=== PATIENT | male | born 1990 | race Caucasian/White ===

== ENCOUNTER 2020-01-19 08:44 | Emergency (ER) | payer OTHER, SELFPAY ==
[2020-01-19] VITALS (18 sets, daily range): BP systolic 146–177; BP diastolic 89–101; PULSE 71–127; RESP 10–21; TEMP 36.3–37.1; O2SAT 97–100
[2020-01-19] MEDS: Ondansetron 4 MG/2 ML VIAL (09:14)
[2020-01-19] MEDS: Normal Saline 1,000 ML 1000 ML IV ×3 (09:14→10:48)
[2020-01-19] MEDS: Normal Saline Flush 10 ML SYR IVP (09:15)
[2020-01-19 09:22] LABS: Abs Immature Grans 0.07 10^3/uL (0.0-0.06); Absolute Basophil Count 0.03 10^3/uL (0.0-0.2); Absolute Eosinophil Count 0.03 10^3/uL (0.0-0.7); Absolute Lymphocyte Count 1.65 10^3/uL (1.2-3.4); Absolute Monocyte Count 1.04 10^3/uL (0.1-0.8); Basophils % 0.2; Eosinophils % 0.2; HCT 43.5 % (40.0-50.0); HGB 16.3 g/dL (13.5-17.5); Immature Grans % 0.4; Lymphocytes % 9.7; MCH 33.7 pg (27.0-33.0); MCHC 37.5 % (32.0-36.0); MCV 90.1 fL (80-95); MPV 9.2 fL (8.0-11.0); Monocytes % 6.1; Neutrophils % 83.4; Nucleated RBC 0 %; Platelet Count 418 10^3/uL (130-400); RBC 4.83 10^6/uL (4.36-5.78); RDW 15.6 % (11.8-14.1); RDW-SD 50.9 fL; WBC 17.04 10^3/uL (4.4-10.8)
[2020-01-19 09:25] LABS: Absolute Neutrophil Count 14.21 10^3/uL (1.2-6.7)
[2020-01-19 10:26] LABS: Bilirubin Small (Negative); Blood Negative (Negative); Clarity Clear (Clear); Glucose 500 mg/dL (Negative); Ketones >=160 mg/dL (Negative); Leukocyte Esterase Negative (Negative); Nitrite Negative (Negative); Specific Gravity 1.025 (1.005-1.025); Urobilinogen 0.2 EU/dL (Up TO 0.2); pH 5.5 (5-8)
[2020-01-19 10:28] LABS: ALT 61 U/L (16-63); AST 46 U/L (15-37); Albumin 4.9 g/dL (3.4-5.0); Alkaline Phosphatase 112 U/L (46-116); Anion Gap 21.1 mmol/L (3-11); BUN 28 mg/dL (7-18); Bilirubin, Total 4.7 mg/dL (0.2-1.0); CO2 20.9 mmol/L (21.0-32.0); CREATININE 1.23 mg/dL (0.70-1.30); Calcium 11.2 mg/dL (8.5-10.1); Chloride 93 mmol/L (98-107); Glucose 319 mg/dL (74-106); Sodium 135 mmol/L (136-145); Total Protein 9.4 g/dL (6.4-8.2)
[2020-01-19 10:36] LABS: Bacteria Negative HPF (Negative); Crystals Negative HPF (Negative); Epithelial Cells Rare HPF (Negative); Mucus Negative (Negative); RBC 0-2 HPF (0-2); WBC 0-2 HPF (0-5)
[2020-01-19 10:37] LABS: C & S Indicated? No; Casts Negative LPF (Negative)
[2020-01-19] MEDS: Ondansetron 4 MG/2 ML VIAL IVP (11:53)
[2020-01-19 11:58] LABS: Abs Immature Grans 0.05 10^3/uL (0.0-0.06); Absolute Lymphocyte Count 0.87 10^3/uL (1.2-3.4); Absolute Monocyte Count 0.55 10^3/uL (0.1-0.8); Absolute Neutrophil Count 11.62 10^3/uL (1.2-6.7); Basophils % 0.2; Immature Grans % 0.4; Lymphocytes % 6.6; MCH 33.4 pg (27.0-33.0); MCHC 35.8 % (32.0-36.0); MPV 8.9 fL (8.0-11.0); Monocytes % 4.2; Neutrophils % 88.6; Nucleated RBC 0 %; RBC 3.86 10^6/uL (4.36-5.78); RDW 15.6 % (11.8-14.1); WBC 13.11 10^3/uL (4.4-10.8)
[2020-01-19 12:00] LABS: Absolute Basophil Count 0.03 10^3/uL (0.0-0.2)
[2020-01-19 12:05] LABS: HGB 12.9 g/dL (13.5-17.5); MCV 93.3 fL (80-95); Platelet Count 274 10^3/uL (130-400)
[2020-01-19 12:12] LABS: ALT 42 U/L (16-63); AST 27 U/L (15-37); Albumin 3.4 g/dL (3.4-5.0); Alkaline Phosphatase 79 U/L (46-116); Anion Gap 8.9 mmol/L (3-11); BUN 24 mg/dL (7-18); Bilirubin, Total 2.8 mg/dL (0.2-1.0); CO2 24.1 mmol/L (21.0-32.0); Calcium 8.3 mg/dL (8.5-10.1); Chloride 107 mmol/L (98-107); Glucose 236 mg/dL (74-106); Potassium 4.1 mmol/L (3.5-5.1); Sodium 140 mmol/L (136-145); Total Protein 6.6 g/dL (6.4-8.2)
--- NOTE | 2020-01-19 12:19 | ED.GENADUL_ITS ---
Discharge Plan Disposition Patient Disposition: HOME Condition: Stable Discharge Details Chief Complaint: Nausea/Vomit/Diar Clinical Impression: Dehydration, Nausea & vomiting Primary Care Provider: Tony Connors ED Provider: Niranjan Grossman Home Meds and New Rx's Prescriptions: New ondansetron HCl [Zofran] 4 mg tablet 4 mg PO Q8H PRNQty: 10 RF: 0 Continued Lantus U-100 Insulin 100 unit/mL Solution 27 unit SUBCUT DAILY RF: 0 Lantus U-100 Insulin 100 unit/mL Solution 5 unit SUBCUT HS RF: 0 insulin aspart U-100 [Novolog U-100 Insulin aspart] 100 unit/mL Solution 1 sliding scale dose SUBCUT USEASDIRECTD RF: 0 Discharge Instructions Instructions: Acute Nausea and Vomiting (ED), Dehydration (ED) Additional Instructions: Zofran as directed. Plenty of fluids to avoid dehydration. Be sure to monitor your glucose levels carefully. As we discussed please monitor your symptoms closely and return to the ER for new or evolving symptoms. Otherwise I recommend reaching out your primary care provider today or tomorrow for prompt outpatient reevaluation. Medical Decision Making 30-year-old gentleman with history of type 1 diabetes presents with nausea, vomiting, concern for dehydration for nearly 1 week. He has no other concerns or complaints whatsoever. No recent illness. He appears slightly anxious and has mild tachycardia otherwise appears well. Differential diagnosis includes but not excluded to gastroenteritis, hyperglycemia, nausea and vomiting, dehydration, DKA, infectious process. Will obtain IV access, give IV Zofran, initiate normal saline therapy, initially written for 2 L. Patient observed in the ER for nearly 4 hours. Initial laboratory values revealed a white count of 17.04, anion gap 21.1, creatinine 1.23, glucose 319, urinalysis greater than 160 ketones. Patient reports that the initial Zofran helped greatly but that he did develop some additional nausea. He was given additional 4 mg IV Zofran and 1/3 L of IV fluid. I discussed the case with Dr. Frazier. Will recheck CBC and CMP after hydration and reassess. Repeat laboratory values reveal a white count of 13.11, anion gap of 8.9, creatinine 0.90 glucose 236. Patient does not appear to be in any obvious florid DKA. He is now eating and drinking without difficulty. Heart rate in the 80s. He denies any abdominal pain whatsoever. He subjectively reports feeling much improvement. Glucose in the 200s. We discussed the importance of monitoring his glucose levels very carefully and return to the ER for new or worsening symptoms. He was offered longer ER observation but declines. Will be provided with a prescription for Zofran. He was also encouraged to reach out to his primary care provider later today or tomorrow for prompt outpatient reevaluation. Medical Records Medical records reviewed: Yes I reviewed the patient's medical records. Lab Data Lab results reviewed: Yes I reviewed the patient's lab results. Lab results narrative: Laboratory Tests Range/Units 01/19/20 01/19/20 01/19/20 09:05 09:05 10:18 WBC (4.4-10.8) 10^3/uL 17.04 H RBC (4.36-5.78) 10^6/uL 4.83 Hgb (13.5-17.5) g/dL 16.3 Hct (40.0-50.0) % 43.5 MCV (80-95) fL 90.1 MCH (27.0-33.0) pg 33.7 H MCHC (32.0-36.0) % 37.5 H RDW (11.8-14.1) % 15.6 H Plt Count (130-400) 10^3/uL 418 H MPV (8.0-11.0) fL 9.2 Immature Gran % 0.4 Neutrophils % 83.4 Lymphocytes % 9.7 Monocytes % 6.1 Eosinophils % 0.2 Basophils % 0.2 Nucleated RBC % % 0 Absolute Neutrophils (1.2-6.7) 10^3/uL 14.21 H Absolute Lymphocytes (1.2-3.4) 10^3/uL 1.65 Absolute Monocytes (0.1-0.8) 10^3/uL 1.04 H Absolute Eosinophils (0.0-0.7) 10^3/uL 0.03 Absolute Basophils (0.0-0.2) 10^3/uL 0.03 Sodium (136-145) mmol/L 135 L Potassium (3.5-5.1) mmol/L 4.0 Chloride (98-107) mmol/L 93 L Carbon Dioxide (21.0-32.0) mmol/L 20.9 L Anion Gap (3-11) mmol/L 21.1 H BUN (7-18) mg/dL 28 H Creatinine (0.70-1.30) mg/dL 1.23 Estimated GFR/1.73 m2 (mL/min/1.73m2) >= 60.00 Glucose (74-106) mg/dL 319 H Calcium (8.5-10.1) mg/dL 11.2 H Total Bilirubin (0.2-1.0) mg/dL 4.7 H AST (15-37) U/L 46 H ALT (16-63) U/L 61 Alkaline Phosphatase (46-116) U/L 112 Total Protein (6.4-8.2) g/dL 9.4 H Albumin (3.4-5.0) g/dL 4.9 Urine Color (Yellow) Yellow Urine Clarity (Clear) Clear Urine pH (5-8) 5.5 Ur Specific [place] (1.005-1.025) 1.025 Urine Protein (Negative) mg/dL 30 H Urine Ketones (Negative) mg/dL >=160 H Urine Blood (Negative) Negative Urine Nitrite (Negative) Negative Urine Bilirubin (Negative) Small H Urine Urobilinogen (Up TO 0.2) EU/dL 0.2 Ur Leukocyte Esterase (Negative) Negative Urine RBC (0-2) HPF 0-2 Urine WBC (0-5) HPF 0-2 Ur Epithelial Cells (Negative) HPF Rare Urine Crystals (Negative) HPF Negative Urine Bacteria (Negative) HPF Negative Urine Casts (Negative) LPF Negative Urine Mucus (Negative) Negative Ur Culture Indicated? No Urine Glucose (Negative) mg/dL 500 H Range/Units 01/19/20 01/19/20 11:50 11:50 WBC (4.4-10.8) 10^3/uL 13.11 H RBC (4.36-5.78) 10^6/uL 3.86 L Hgb (13.5-17.5) g/dL 12.9 L D Hct (40.0-50.0) % 36.0 L MCV (80-95) fL 93.3 D MCH (27.0-33.0) pg 33.4 H MCHC (32.0-36.0) % 35.8 RDW (11.8-14.1) % 15.6 H Plt Count (130-400) 10^3/uL 274 D MPV (8.0-11.0) fL 8.9 Immature Gran % 0.4 Neutrophils % 88.6 Lymphocytes % 6.6 Monocytes % 4.2 Eosinophils % 0.0 Basophils % 0.2 Nucleated RBC % % 0 Absolute Neutrophils (1.2-6.7) 10^3/uL 11.62 H Absolute Lymphocytes (1.2-3.4) 10^3/uL 0.87 L Absolute Monocytes (0.1-0.8) 10^3/uL 0.55 Absolute Eosinophils (0.0-0.7) 10^3/uL 0.00 Absolute Basophils (0.0-0.2) 10^3/uL 0.03 Sodium (136-145) mmol/L 140 Potassium (3.5-5.1) mmol/L 4.1 Chloride (98-107) mmol/L 107 Carbon Dioxide (21.0-32.0) mmol/L 24.1 Anion Gap (3-11) mmol/L 8.9 BUN (7-18) mg/dL 24 H Creatinine (0.70-1.30) mg/dL 0.90 Estimated GFR/1.73 m2 (mL/min/1.73m2) >= 60.00 Glucose (74-106) mg/dL 236 H D Calcium (8.5-10.1) mg/dL 8.3 L Total Bilirubin (0.2-1.0) mg/dL 2.8 H AST (15-37) U/L 27 ALT (16-63) U/L 42 Alkaline Phosphatase (46-116) U/L 79 Total Protein (6.4-8.2) g/dL 6.6 Albumin (3.4-5.0) g/dL 3.4 Urine Color (Yellow) Urine Clarity (Clear) Urine pH (5-8) Ur Specific [place] (1.005-1.025) Urine Protein (Negative) mg/dL Urine Ketones (Negative) mg/dL Urine Blood (Negative) Urine Nitrite (Negative) Urine Bilirubin (Negative) Urine Urobilinogen (Up TO 0.2) EU/dL Ur Leukocyte Esterase (Negative) Urine RBC (0-2) HPF Urine WBC (0-5) HPF Ur Epithelial Cells (Negative) HPF Urine Crystals (Negative) HPF Urine Bacteria (Negative) HPF Urine Casts (Negative) LPF Urine Mucus (Negative) Ur Culture Indicated? Urine Glucose (Negative) mg/dL HPI General Mode of arrival: ambulatory . Date/Time Provider Initiated Documentation: 01/19/20 09:05 . Limitations to Documentation: no limitations . Information obtained by: patient . HPI Narrative: This is a 30-year-old gentleman with type 1 diabetes presenting today for nausea, vomiting, concern for dehydration since Saturday, essentially 1 week. He reports that he has checked his sugar levels and they have been primarily in the 200s. He denies recent travel, bad food exposure or sick contacts. He denies any fevers, chest pain, shortness of breath, abdominal pain, blood in his vomit, diarrhea, constipation, dysuria. He does report that he was admitted to the [place] ICU earlier this year for DKA. He tells me that he feels like if he could just control his nausea he would be perfectly fine. He admits to alcohol use fairly frequently, 2 drinks nearly daily. He chews tobacco but denies smoking or any drug use. Related Data Home Medications Medication Instructions Recorded Confirmed Lantus U-100 Insulin 5 unit SUBCUT HS 01/19/20 01/19/20 Lantus U-100 Insulin 27 unit SUBCUT DAILY 01/19/20 01/19/20 insulin aspart U-100 [Novolog 1 sliding scale dose SUBCUT 01/19/20 01/19/20 U-100 Insulin aspart] USEASDIRECTD ondansetron HCl [Zofran] 4 mg PO Q8H PRN #10 tab 01/19/20 Previous Rx's Medication Instructions Recorded ondansetron HCl [Zofran] 4 mg PO Q8H PRN #10 tab 01/19/20 Allergies Allergy/AdvReac Type Severity Reaction Status Date / Time No Known Allergies Allergy Unverified 01/19/20 08:51 General Stated Complaint: Nausea/Vomit/Diar TOR: 3 Review of Systems Constitutional Constitutional: Denies fatigue, Denies fever(s) and Denies weakness Eyes Eyes: Denies change in vision ENT Ears, Nose, Mouth, and Throat: Denies dizziness and Denies neck pain Cardiovascular Cardiovascular: Denies chest pain and Denies dyspnea Respiratory Respiratory: Denies cough and Denies dyspnea Gastrointestinal Gastrointestinal: Denies abdominal pain, Denies constipation, Denies diarrhea, Reports nausea and Reports vomiting Genitourinary Genitourinary: Denies dysuria Musculoskeletal Musculoskeletal: Denies back pain, Denies neck pain, Denies numbness and Denies tingling Integumentary/Breasts Skin/Breast: Denies rash Neurologic Neurologic: Denies dizziness, Denies numbness, Denies tingling and Denies weakness Endocrine Endocrine: Denies fatigue [facility] Social History Tobacco: How many years used: 20 Alcohol Intake: current Alcohol Intake frequency: 3 or more drinks per day Substance use type: does not use Details: pt states he chews. Pt states he chews a tin a day Do you feel safe at home: Yes Do you feel safe in your relationship?: Yes Exam Const General: cooperative, healthy appearing, comfortable, in distress (Dry heaving) and anxious Orientation: alert, awake and oriented x3 HENMT Head: normal to inspection, normocephalic and atraumatic Ears: hearing grossly normal bilaterally General nose exam: external nose normal Face and sinus: normal facial exam Mouth: moist mucous membranes abnormal (Slightly dry) Eyes Conjunctivae: conjunctivae normal Sclera: sclerae normal Neck Neck: normal visual inspection, full ROM, no meningeal signs, trachea midline and supple Resp Effort & Inspection: normal respiratory effort and able to speak in complete sentences Auscultation: clear to auscultation bilaterally Cardio Rate: tachycardic (112) Rhythm: regular rhythm GI Inspection: normal to inspection Palpation: soft, not firm, no guarding and nontender Auscultation: normal bowel sounds Back/Spine/Pelvis Back: No back tenderness Skin General skin exam: no rashes or lesions noted Neuro General: patient alert, patient awake, patient oriented x3, moves all extremities and no focal motor deficits Cognition: normal cognition Speech: speech normal Gait: normal gait Motor: muscle tone normal throughout and strength 5/5 throughout Sensory Exam: no sensory deficits noted Extrem General: normal to inspection, full ROM and capillary refill normal Psych Appearance: grossly normal Mental Status: mental status grossly normal Course Vital Signs Vital signs: Vital Signs Temperature 36.3 C L 01/19/20 08:49 Pulse 127 H 01/19/20 08:49 Respiratory Rate 18 01/19/20 08:49 Blood Pressure 147/99 H 01/19/20 08:49 Pulse Oximetry 99 01/19/20 08:49 Temperature 36.3 C L 01/19/20 08:49 Temperature Source Skin 01/19/20 08:49 Pulse 80 01/19/20 12:01 Pulse 115 H 01/19/20 12:10 Respiratory Rate 14 01/19/20 12:10 Respiratory Effort Labored 01/19/20 09:16 Blood Pressure 164/91 H 01/19/20 12:01 Blood Pressure Mean 107 01/19/20 12:01 Blood Pressure Position Sitting 01/19/20 08:49 Pulse Oximetry 99 01/19/20 12:10 Oxygen Delivery Method Room Air 01/19/20 10:32 Oxygen Flow Rate 0 01/19/20 10:32 Lab/Test Results Lab/Test Results: Laboratory Tests Range/Units 01/19/20 01/19/20 01/19/20 09:05 09:05 10:18 WBC (4.4-10.8) 10^3/uL 17.04 H RBC (4.36-5.78) 10^6/uL 4.83 Hgb (13.5-17.5) g/dL 16.3 Hct (40.0-50.0) % 43.5 MCV (80-95) fL 90.1 MCH (27.0-33.0) pg 33.7 H MCHC (32.0-36.0) % 37.5 H RDW (11.8-14.1) % 15.6 H Plt Count (130-400) 10^3/uL 418 H MPV (8.0-11.0) fL 9.2 Immature Gran % 0.4 Neutrophils % 83.4 Lymphocytes % 9.7 Monocytes % 6.1 Eosinophils % 0.2 Basophils % 0.2 Nucleated RBC % % 0 Absolute Neutrophils (1.2-6.7) 10^3/uL 14.21 H Absolute Lymphocytes (1.2-3.4) 10^3/uL 1.65 Absolute Monocytes (0.1-0.8) 10^3/uL 1.04 H Absolute Eosinophils (0.0-0.7) 10^3/uL 0.03 Absolute Basophils (0.0-0.2) 10^3/uL 0.03 Sodium (136-145) mmol/L 135 L Potassium (3.5-5.1) mmol/L 4.0 Chloride (98-107) mmol/L 93 L Carbon Dioxide (21.0-32.0) mmol/L 20.9 L Anion Gap (3-11) mmol/L 21.1 H BUN (7-18) mg/dL 28 H Creatinine (0.70-1.30) mg/dL 1.23 Estimated GFR/1.73 m2 (mL/min/1.73m2) >= 60.00 Glucose (74-106) mg/dL 319 H Calcium (8.5-10.1) mg/dL 11.2 H Total Bilirubin (0.2-1.0) mg/dL 4.7 H AST (15-37) U/L 46 H ALT (16-63) U/L 61 Alkaline Phosphatase (46-116) U/L 112 Total Protein (6.4-8.2) g/dL 9.4 H Albumin (3.4-5.0) g/dL 4.9 Urine Color (Yellow) Yellow Urine Clarity (Clear) Clear Urine pH (5-8) 5.5 Ur Specific [place] (1.005-1.025) 1.025 Urine Protein (Negative) mg/dL 30 H Urine Ketones (Negative) mg/dL >=160 H Urine Blood (Negative) Negative Urine Nitrite (Negative) Negative Urine Bilirubin (Negative) Small H Urine Urobilinogen (Up TO 0.2) EU/dL 0.2 Ur Leukocyte Esterase (Negative) Negative Urine RBC (0-2) HPF 0-2 Urine WBC (0-5) HPF 0-2 Ur Epithelial Cells (Negative) HPF Rare Urine Crystals (Negative) HPF Negative Urine Bacteria (Negative) HPF Negative Urine Casts (Negative) LPF Negative Urine Mucus (Negative) Negative Ur Culture Indicated? No Urine Glucose (Negative) mg/dL 500 H Range/Units 01/19/20 01/19/20 11:50 11:50 WBC (4.4-10.8) 10^3/uL 13.11 H RBC (4.36-5.78) 10^6/uL 3.86 L Hgb (13.5-17.5) g/dL 12.9 L D Hct (40.0-50.0) % 36.0 L MCV (80-95) fL 93.3 D MCH (27.0-33.0) pg 33.4 H MCHC (32.0-36.0) % 35.8 RDW (11.8-14.1) % 15.6 H Plt Count (130-400) 10^3/uL 274 D MPV (8.0-11.0) fL 8.9 Immature Gran % 0.4 Neutrophils % 88.6 Lymphocytes % 6.6 Monocytes % 4.2 Eosinophils % 0.0 Basophils % 0.2 Nucleated RBC % % 0 Absolute Neutrophils (1.2-6.7) 10^3/uL 11.62 H Absolute Lymphocytes (1.2-3.4) 10^3/uL 0.87 L Absolute Monocytes (0.1-0.8) 10^3/uL 0.55 Absolute Eosinophils (0.0-0.7) 10^3/uL 0.00 Absolute Basophils (0.0-0.2) 10^3/uL 0.03 Sodium (136-145) mmol/L 140 Potassium (3.5-5.1) mmol/L 4.1 Chloride (98-107) mmol/L 107 Carbon Dioxide (21.0-32.0) mmol/L 24.1 Anion Gap (3-11) mmol/L 8.9 BUN (7-18) mg/dL 24 H Creatinine (0.70-1.30) mg/dL 0.90 Estimated GFR/1.73 m2 (mL/min/1.73m2) >= 60.00 Glucose (74-106) mg/dL 236 H D Calcium (8.5-10.1) mg/dL 8.3 L Total Bilirubin (0.2-1.0) mg/dL 2.8 H AST (15-37) U/L 27 ALT (16-63) U/L 42 Alkaline Phosphatase (46-116) U/L 79 Total Protein (6.4-8.2) g/dL 6.6 Albumin (3.4-5.0) g/dL 3.4 Urine Color (Yellow) Urine Clarity (Clear) Urine pH (5-8) Ur Specific [place] (1.005-1.025) Urine Protein (Negative) mg/dL Urine Ketones (Negative) mg/dL Urine Blood (Negative) Urine Nitrite (Negative) Urine Bilirubin (Negative) Urine Urobilinogen (Up TO 0.2) EU/dL Ur Leukocyte Esterase (Negative) Urine RBC (0-2) HPF Urine WBC (0-5) HPF Ur Epithelial Cells (Negative) HPF Urine Crystals (Negative) HPF Urine Bacteria (Negative) HPF Urine Casts (Negative) LPF Urine Mucus (Negative) Ur Culture Indicated? Urine Glucose (Negative) mg/dL
== END 2020-01-19 13:02 | disposition home or self-care (01) ==
PROVIDERS: Emergency Provider Physician Assistant; PCP Internal Medicine
DX: E86.0 Dehydration (principal); R11.2 Nausea with vomiting, unspecified; E10.69 Type 1 diabetes mellitus with other specified complication
CPT/HCPCS: 36415; 36416; 80053; 82962; 96361; 96374; 99284; 81003; 81015; 85025; J2405

== ENCOUNTER 2021-04-20 07:33 | Emergency (ER) | payer OTHER, SELFPAY ==
[2021-04-20] VITALS (7 sets, daily range): BP systolic 138–158; BP diastolic 78–100; PULSE 105–124; RESP 18–25; TEMP 37; O2SAT 99–100
--- NOTE | 2021-04-20 07:56 | ED.GENADUL_ITS ---
Discharge Plan Disposition Patient Disposition: AGAINST MEDICAL ADVICE Condition: Serious Discharge Details Clinical Impression: DKA (diabetic ketoacidosis), Vomiting Primary Care Provider: Tony Connors ED Provider: Micaela Young Home Meds and New Rx's Prescriptions: New metoclopramide HCl [Reglan] 10 mg tablet 10 mg PO Q6H PRN (Reason: nausea and vomiting) Qty: 7 RF: 1 Continued Lantus U-100 Insulin 100 unit/mL Solution 24 unit SUBCUT DAILY RF: 0 Lantus U-100 Insulin 100 unit/mL Solution 5 unit SUBCUT HS RF: 0 insulin aspart U-100 [Novolog U-100 Insulin aspart] 100 unit/mL Solution 1 sliding scale dose SUBCUT USEASDIRECTD RF: 0 ondansetron HCl [Zofran] 4 mg tablet 4 mg PO Q8H PRNQty: 10 RF: 0 gabapentin 600 mg Tablet 600 mg PO TID RF: 0 buprenorphine-naloxone 8-2 mg Tablet, Sublingual 2.5 tab SUBLINGUAL DAILY RF: 0 cholecalciferol (vitamin D3) [Vitamin D3] 25 mcg (1,000 unit) Tablet 1,000 mcg PO DAILY RF: 0 omeprazole 20 mg Tablet,Delayed Release (Dr/Ec) 20 mg PO DAILY RF: 0 Discharge Instructions Instructions: Diabetic Ketoacidosis (DC) Additional Instructions: You are leaving the hospital AGAINST MEDICAL ADVICE. Your lab work today is consistent with a diagnosis called diabetic ketoacidosis which means your body is having difficulty controlling your blood sugar and this requires admission to the hospital for a continuous insulin infusion through an IV catheter. There is a high risk of or disability in diabetic ketoacidosis. You are encouraged to return here immediately with any worsening or new concerning symptoms. Your lab work today also noted evidence of increased liver enzymes. A hepatitis blood test has been sent for analysis and may take several days for a result. Follow-up with your primary care doctor for results of this hepatitis blood test and for recheck of your liver enzymes in the next 1 to 2 weeks. Drink plenty of fluids and get plenty of rest. You are being sent home with Reglan to help with your nausea and vomiting. A prescription for Reglan was also sent electronically to [facility] pharmacy in [place], [place]. Discharge Data Discharge Date/Time-TO BE ENTERED AT DEPARTURE: 04/20/21 10:39 Discharge Physician: Micaela Young Medical Decision Making 0800 -- 31-year-old male with a history of type 1 diabetes presents for vomiting for the past 2 days. Patient appears slightly uncomfortable but nontoxic. Blood pressure hypertensive at 158/100. Heart rate 120s. He is afebrile. His abdomen is tense but nontender. Suspect viral GI illness, also consider DKA, electrolyte abnormality. Will place an IV, bolus IV fluids, screening labs, urinalysis, give bolus IV fluids, Zofran, Pepcid and GI cocktail reassess. Do not think indication for imaging at this time. 0900 -- Labs reviewed. White blood cell count 10. Glucose 365. Bicarb 18. Anion gap 23. pH 7.26. Elevation of LFTs with AST 188, ALT 175, alk phos 409. T bili elevated to 3.4 which has been elevated similarly and higher in the past. Lipase within normal limits. Results consistent with DKA. Will start insulin drip and fluids. 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 Results discussed with patient and [facility] Discussed that this is not a safe measure, as he needs an insulin drip and medical personnel present. [facility]. 929 -- No beds available at the [facility]. Case discussed with hospitalist who accepts patient for admission. Patient endorsed that he felt much better and states he does not want to stay in the hospital. Despite our efforts, the patient has decided to leave against medical advice. He has a normal mental status and full decisional capacity. The patient understands his condition and the risks of leaving AMA, including BUT NOT LIMITED TO permanent disability, , etc., and has had an opportunity to ask questions about his medical condition. The patient has been informed that he may return for care at any time, and has been referred to his local medical physician for follow up [place]. Patient was given Reglan to go and a prescription was sent electronically to his pharmacy. He has a follow-up appointment with his PCP next week. He was advised to follow-up for reevaluation and recheck of his liver enzymes and follow-up on hepatitis panel. Usual and customary return precautions given prior to pt leaving against medical advice. Medical Records Medical records reviewed: Yes I reviewed the patient's medical records. Lab Data Lab results reviewed: Yes I reviewed the patient's lab results. Labs: Laboratory Tests Range/Units 04/20/21 04/20/21 04/20/21 07:50 07:50 07:50 WBC (4.4-10.8) 10^3/uL 10.98 H RBC (4.36-5.78) 10^6/uL 5.61 Hgb (13.5-17.5) g/dL 15.1 Hct (40.0-50.0) % 48.0 MCV (80-95) fL 85.6 MCH (27.0-33.0) pg 26.9 L MCHC (32.0-36.0) % 31.5 L RDW (11.8-14.1) % 19.7 H Plt Count (130-400) 10^3/uL 279 MPV (8.0-11.0) fL 10.4 Immature Gran % 0.5 Neutrophils % 86.6 Lymphocytes % 7.0 Monocytes % 5.6 Eosinophils % 0.2 Basophils % 0.1 Nucleated RBC % % 0 Absolute Neutrophils (1.2-6.7) 10^3/uL 9.51 H Absolute Lymphocytes (1.2-3.4) 10^3/uL 0.77 L Absolute Monocytes (0.1-0.8) 10^3/uL 0.61 Absolute Eosinophils (0.0-0.7) 10^3/uL 0.02 Absolute Basophils (0.0-0.2) 10^3/uL 0.01 VBG pH (7.31-7.41) 7.26 L VBG pCO2 (41-51) mmHg 40 L VBG pO2 mmHg 33 VBG HCO3 (23-28) mmol/L 18 L VBG Total CO2 (24-29) mmol/L 17 L VBG O2 Saturation % 55 VBG Base Excess (-2-3) mmol/L -9 L Sodium (136-145) mmol/L 139 Potassium (3.5-5.1) mmol/L 4.3 Chloride (98-107) mmol/L 97 L Carbon Dioxide (21.0-32.0) mmol/L 18.7 L Anion Gap (3-11) mmol/L 23.3 H BUN (7-18) mg/dL 19 H Creatinine (0.70-1.30) mg/dL 1.2 Estimated GFR/1.73 m2 (mL/min/1.73m2) >= 60.00 Glucose (74-106) mg/dL 365 H Calcium (8.5-10.1) mg/dL 9.3 Total Bilirubin (0.2-1.0) mg/dL 3.4 H AST (15-37) U/L 188 H ALT (16-63) U/L 175 H Alkaline Phosphatase (46-116) U/L 409 H Total Protein (6.4-8.2) g/dL 9.7 H Albumin (3.4-5.0) g/dL 3.9 Lipase (73-393) U/L 73 Urine Color (Yellow) Urine Clarity (Clear) Urine pH (5-8) Ur Specific [place] (1.005-1.025) Urine Protein (Negative) mg/dL Urine Ketones (Negative) mg/dL Urine Blood (Negative) Urine Nitrite (Negative) Urine Bilirubin (Negative) Urine Urobilinogen (Up TO 0.2) EU/dL Ur Leukocyte Esterase (Negative) Urine Glucose (Negative) mg/dL Range/Units 04/20/21 08:14 WBC (4.4-10.8) 10^3/uL RBC (4.36-5.78) 10^6/uL Hgb (13.5-17.5) g/dL Hct (40.0-50.0) % MCV (80-95) fL MCH (27.0-33.0) pg MCHC (32.0-36.0) % RDW (11.8-14.1) % Plt Count (130-400) 10^3/uL MPV (8.0-11.0) fL Immature Gran % Neutrophils % Lymphocytes % Monocytes % Eosinophils % Basophils % Nucleated RBC % % Absolute Neutrophils (1.2-6.7) 10^3/uL Absolute Lymphocytes (1.2-3.4) 10^3/uL Absolute Monocytes (0.1-0.8) 10^3/uL Absolute Eosinophils (0.0-0.7) 10^3/uL Absolute Basophils (0.0-0.2) 10^3/uL VBG pH (7.31-7.41) VBG pCO2 (41-51) mmHg VBG pO2 mmHg VBG HCO3 (23-28) mmol/L VBG Total CO2 (24-29) mmol/L VBG O2 Saturation % VBG Base Excess (-2-3) mmol/L Sodium (136-145) mmol/L Potassium (3.5-5.1) mmol/L Chloride (98-107) mmol/L Carbon Dioxide (21.0-32.0) mmol/L Anion Gap (3-11) mmol/L BUN (7-18) mg/dL Creatinine (0.70-1.30) mg/dL Estimated GFR/1.73 m2 (mL/min/1.73m2) Glucose (74-106) mg/dL Calcium (8.5-10.1) mg/dL Total Bilirubin (0.2-1.0) mg/dL AST (15-37) U/L ALT (16-63) U/L Alkaline Phosphatase (46-116) U/L Total Protein (6.4-8.2) g/dL Albumin (3.4-5.0) g/dL Lipase (73-393) U/L Urine Color (Yellow) Yellow Urine Clarity (Clear) Clear Urine pH (5-8) 5.5 Ur Specific [place] (1.005-1.025) 1.025 Urine Protein (Negative) mg/dL Negative Urine Ketones (Negative) mg/dL >=160 H Urine Blood (Negative) Negative Urine Nitrite (Negative) Negative Urine Bilirubin (Negative) Negative Urine Urobilinogen (Up TO 0.2) EU/dL 0.2 Ur Leukocyte Esterase (Negative) Negative Urine Glucose (Negative) mg/dL 500 H HPI General Mode of arrival: ambulatory . Date/Time Provider Initiated Documentation: 04/20/21 07:56 . Limitations to Documentation: no limitations . Information obtained by: patient . 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 He states he has been vomiting approximately every 15 minutes which is mainly been clear and occasionally bilious. He states he last vomited just prior to arrival here. He states he had one episode of diarrhea at the onset of symptoms 2 days ago which was watery and brown but no diarrhea since then. He admits to intermittent epigastric discomfort that occurs with vomiting but otherwise denies any abdominal pain. He states he has been unable to keep any of his oral medications down since yesterday morning. He states he takes gabapentin for his peripheral neuropathy, and clonidine as needed for anxiety. He is decreasing his dose of Suboxone recently as it was causing fatigue. He last took 2.5 of Suboxone yesterday morning. He states his sugars have been within a fairly good range between 90 and 100 over the past few days but was more elevated this morning at 270. He states he did take 24 units of Lantus this morning. He states he is also on a sliding scale NovoLog insulin with carb counting throughout the day. He states he has gained 30 pounds over the past 4 months since stopping heroin use and eating more. He does admit to urinating more frequently lately but denies any dysuria. He denies any fever, chest pain, shortness of breath, recent antibiotics, recent travel or known sick contacts. Patient states he has had similar GI symptoms in the past for which they have been unable to find a diagnosis. Related Data Home Medications Medication Instructions Recorded Confirmed Lantus U-100 Insulin 5 unit SUBCUT HS 01/19/20 01/19/20 Lantus U-100 Insulin 24 unit SUBCUT DAILY 01/19/20 04/20/21 insulin aspart U-100 [Novolog 1 sliding scale dose SUBCUT 01/19/20 04/20/21 U-100 Insulin aspart] USEASDIRECTD ondansetron HCl [Zofran] 4 mg PO Q8H PRN #10 tab 01/19/20 04/20/21 buprenorphine-naloxone 2.5 tab SUBLINGUAL DAILY 04/20/21 04/20/21 cholecalciferol (vitamin D3) 1,000 mcg PO DAILY 04/20/21 04/20/21 [Vitamin D3] gabapentin 600 mg PO TID 04/20/21 04/20/21 metoclopramide HCl [Reglan] 10 mg PO Q6H PRN #7 tab 04/20/21 omeprazole 20 mg PO DAILY 04/20/21 04/20/21 Previous Rx's Medication Instructions Recorded ondansetron HCl [Zofran] 4 mg PO Q8H PRN #10 tab 01/19/20 metoclopramide HCl [Reglan] 10 mg PO Q6H PRN #7 tab 04/20/21 Allergies Allergy/AdvReac Type Severity Reaction Status Date / Time No Known Allergies Allergy Unverified 04/20/21 07:41 General Stated Complaint: Nausea/Vomit/Diar TOR: 3 Review of Systems All systems reviewed & are unremarkable except as noted in HPI and below Constitutional Constitutional: Reports as per HPI, Denies chills and Denies fever(s) Eyes Eyes: Denies blurry vision ENT Ears, Nose, Mouth, and Throat: Denies dizziness, Denies sore throat and Denies throat swelling Cardiovascular Cardiovascular: Denies chest pain and Denies dyspnea Respiratory Respiratory: Denies cough and Denies dyspnea Gastrointestinal Gastrointestinal: Denies abdominal pain, Denies diarrhea and Reports vomiting Genitourinary Genitourinary: Denies hematuria and Denies dysuria Musculoskeletal Musculoskeletal: Denies back pain and Denies numbness Integumentary/Breasts Skin/Breast: Denies lesions and Denies rash Neurologic Neurologic: Denies dizziness, Denies localized weakness and Denies numbness Allergic/Immunologic Allergic/Immunologic: Denies throat swelling [facility] Active Problem List (Updated 04/20/21 @ 09:22 by Micaela Young DO) DKA (diabetic ketoacidosis) (Acute) Vomiting (Acute) Medical History (Updated 04/20/21 @ 09:22 by Micaela Young DO) Narcotic abuse in remission Type I diabetes mellitus Surgical History (Updated 04/20/21 @ 08:11 by Micaela Young DO) No significant past surgical history Social History Smoking/Tobacco Use Status: Current every day Tobacco Type: smokeless tobacco Tobacco: How many years used: 20 Smoking risk assessment performed?: Yes Alcohol Intake: former Drug use: Never Substance use type: does not use Details: pt states he chews. Pt states he chews a tin a day Do you feel safe at home: Yes Do you feel safe in your relationship?: Yes Exam Const General: cooperative and no acute distress HENMT Head: normal to inspection Ears: hearing grossly normal bilaterally and external ears normal Face and sinus: normal facial exam Mouth: oral mucosae normal Eyes General: appearance normal, both eyes and all related structures EOM: EOM intact bilaterally Neck Neck: normal visual inspection and No submandibular swelling Lymphatic: no lymphadenopathy noted Chest Chest: normal inspection of the chest and no tenderness Resp Effort & Inspection: normal respiratory effort and able to speak in complete sentences Auscultation: clear to auscultation bilaterally Cardio Rate: tachycardic Rhythm: regular rhythm GI Inspection: normal to inspection Palpation: soft, not firm, not rigid and nontender Auscultation: normal bowel sounds Skin General skin exam: no rashes or lesions noted Neuro General: patient alert, patient awake and patient oriented x3 Cognition: normal cognition Speech: speech normal Motor: muscle tone normal throughout Sensory Exam: no sensory deficits noted Extrem General: normal to inspection, full ROM, capillary refill normal, no calf tenderness bilaterally and no edema Psych Appearance: grossly normal Mental Status: mental status grossly normal Speech and Movement: speech and movement normal Affect: normal affect Course Vital Signs Vital signs: Vital Signs Temperature 98.6 F 04/20/21 07:37 Pulse 120 H 04/20/21 07:37 Respiratory Rate 18 04/20/21 07:37 Blood Pressure 158/100 H 04/20/21 07:37 Pulse Oximetry 100 04/20/21 07:37 Temperature 98.6 F 04/20/21 07:37 Temperature Source Temporal Artery Scan 04/20/21 07:37 Pulse 120 H 04/20/21 07:37 Respiratory Rate 18 04/20/21 07:37 Respiratory Effort Non-Labored 04/20/21 07:43 Blood Pressure 158/100 H 04/20/21 07:37 Blood Pressure Position Sitting 04/20/21 07:37 Pulse Oximetry 100 04/20/21 07:37 Oxygen Delivery Method Room Air 04/20/21 07:37 Oxygen Flow Rate 0 04/20/21 07:37
[2021-04-20 08:25] LABS: Abs Immature Grans 0.05 10^3/uL (0.0-0.06); Absolute Basophil Count 0.01 10^3/uL (0.0-0.2); Absolute Eosinophil Count 0.02 10^3/uL (0.0-0.7); Absolute Lymphocyte Count 0.77 10^3/uL (1.2-3.4); Absolute Monocyte Count 0.61 10^3/uL (0.1-0.8); Basophils % 0.1; Eosinophils % 0.2; HGB 15.1 g/dL (13.5-17.5); Immature Grans % 0.5; MCH 26.9 pg (27.0-33.0); MCHC 31.5 % (32.0-36.0); MCV 85.6 fL (80-95); MPV 10.4 fL (8.0-11.0); Monocytes % 5.6; Neutrophils % 86.6; Nucleated RBC 0 %; Platelet Count 279 10^3/uL (130-400); RBC 5.61 10^6/uL (4.36-5.78); RDW 19.7 % (11.8-14.1); WBC 10.98 10^3/uL (4.4-10.8)
[2021-04-20 08:26] LABS: BE (Venous) -9 mmol/L (-2-3); HCO3 (Venous) 18 mmol/L (23-28); O2 Sat (Venous) 55 %; TCO2 (Venous) 17 mmol/L (24-29); pCO2 (Venous) 40 mmHg (41-51); pH (Venous) 7.26 (7.31-7.41); pO2 (Venous) 33 mmHg
[2021-04-20] MEDS: Normal Saline 1,000 ML 1000 ML IV ×2 (08:28→09:30)
[2021-04-20] MEDS: Ondansetron 4 MG/2 ML VIAL IVP (08:28)
[2021-04-20 08:29] LABS: Absolute Neutrophil Count 9.51 10^3/uL (1.2-6.7)
[2021-04-20 08:45] LABS: ALT 175 U/L (16-63); AST 188 U/L (15-37); Albumin 3.9 g/dL (3.4-5.0); Alkaline Phosphatase 409 U/L (46-116); Anion Gap 23.3 mmol/L (3-11); BUN 19 mg/dL (7-18); Bilirubin, Total 3.4 mg/dL (0.2-1.0); CO2 18.7 mmol/L (21.0-32.0); CREATININE 1.2 mg/dL (0.70-1.30); Calcium 9.3 mg/dL (8.5-10.1); Chloride 97 mmol/L (98-107); Glucose 365 mg/dL (74-106); Lipase 73 U/L (73-393); Potassium 4.3 mmol/L (3.5-5.1); Sodium 139 mmol/L (136-145); Total Protein 9.7 g/dL (6.4-8.2)
[2021-04-20] MEDS: Metoclopramide 10 MG/2 ML VIAL IVP (08:54)
[2021-04-20] MEDS: Normal Saline 50 ML (08:57)
[2021-04-20] MEDS: INSULIN REGULAR IN 0.9 % NACL 100 UNIT/100 ML BAG 7.258 UNIT IV (09:30)
[2021-04-20 10:06] LABS: Bilirubin Negative (Negative); Blood Negative (Negative); Clarity Clear (Clear); Glucose 500 mg/dL (Negative); Ketones >=160 mg/dL (Negative); Leukocyte Esterase Negative (Negative); Nitrite Negative (Negative); Specific Gravity 1.025 (1.005-1.025); Urobilinogen 0.2 EU/dL (Up TO 0.2); pH 5.5 (5-8)
[2021-04-20] MEDS: Metoclopramide 10 MG TAB 30 MG PO (10:47)
[2021-04-24 11:21] LABS: Hepatitis A Antibody IgM Negative (Negative); Hepatitis B Core Antibody Negative (Negative); Hepatitis B surface Ag Negative (Negative); Hepatitis C Ab w Rflx HCV PCR Reactive (Negative)
[2021-04-24 16:30] LABS: HCV RNA Detection Quantitative 2620000 IU/mL (Undetected); HCV RNA Qualitative Detected (Undetected)
== END 2021-04-20 10:39 | disposition left against medical advice (07) ==
PROVIDERS: Emergency Provider Physician Assistant; PCP Internal Medicine
DX: E10.10 Type 1 diabetes mellitus with ketoacidosis without coma (principal); R11.2 Nausea with vomiting, unspecified; R74.8 Abnormal levels of other serum enzymes; R74.01 Elevation of levels of liver transaminase levels; Z53.29 Procedure and treatment not carried out because of patient's decision for other reasons
CPT/HCPCS: 36415; 36416; 80053; 82805; 82962; 83690; 86704; 86709; 86803; 87340; 87522; 96361; 96365; 96375; 99284; 81003; 84132; 85025; J2405; J2765

== ENCOUNTER 2021-05-15 11:45 | Emergency (ER) | payer OTHER, SELFPAY ==
[2021-05-15] VITALS (8 sets, daily range): BP systolic 143–177; BP diastolic 70–93; PULSE 71–104; RESP 16–33; TEMP 36.6; O2SAT 98–100
--- NOTE | 2021-05-15 12:10 | W.ED.GENAD ---
Discharge Plan Disposition Patient Disposition: HOME Condition: Improving Discharge Details Clinical Impression: Hepatitis C antibody positive in blood, Vomiting Primary Care Provider: Tony Connors ED Provider: Kourtney Santacruz Home Meds and New Rx's Prescriptions: New metoclopramide HCl [Reglan] 10 mg tablet 10 mg PO Q6H PRN (Reason: nausea and vomiting) Qty: 10 RF: 0 No Action Lantus U-100 Insulin 100 unit/mL Solution 24 unit SUBCUT DAILY RF: 0 Lantus U-100 Insulin 100 unit/mL Solution 24 unit SUBCUT DAILY RF: 0 insulin aspart U-100 [Novolog U-100 Insulin aspart] 100 unit/mL Solution 1 sliding scale dose SUBCUT USEASDIRECTD RF: 0 gabapentin 600 mg Tablet 600 mg PO TID RF: 0 buprenorphine-naloxone 8-2 mg Tablet, Sublingual 2.5 tab SUBLINGUAL DAILY RF: 0 cholecalciferol (vitamin D3) [Vitamin D3] 25 mcg (1,000 unit) Tablet 1,000 mcg PO DAILY RF: 0 omeprazole 20 mg Tablet,Delayed Release (Dr/Ec) 20 mg PO DAILY RF: 0 Discharge Instructions Instructions: Hepatitis C (ED), Acute Nausea and Vomiting (ED) Additional Instructions: Please follow-up with your primary care provider regarding the elevated liver enzymes and positive hepatitis C test. I do recommend that you see GI specialist for hepatitis treatment if needed. Nausea medication was sent to the pharmacy we have on file for you. Small frequent sips of fluids take the medications 20 or 30 minutes prior to eating or drinking anything. Follow up with primary care provider in 3-5 days. Return to ED sooner if any worsening or concerns. Increase oral fluids. Referrals: Tony Connors [Primary Care Provider] - 5 days Discharge Data Discharge Date/Time-TO BE ENTERED AT DEPARTURE: 05/15/21 15:06 Medical Decision Making 30-year-old insulin-dependent diabetic presents with nausea vomiting for the last 2 days. Patient appears uncomfortable but. His abdomen is soft nontender with palpation. Imaging not indicated at this time. Normal saline 4 mg Zofran ordered upon initial presentation. Labs indicate white blood cell count of 13.49, absolute neutrophils 12.14, VBG pH 7.55 PCO2 of 28 CO2 21, sodium 140 potassium 3.2, anion gap 18.4, BUN 14 creatinine 1.0 GFR greater than, glucose 199, magnesium is 1.0, total bilirubin is 4.7 AST is 570 ALT 431 alk phos 360 total protein 9.2 lipase is 30. Urinalysis shows greater than 1 ketones small bilirubin 1.0 urobilinogen into the glucose. UDS is negative. FINDINGS: ABDOMEN: Lung Bases: Patchy infiltrates right lower lobe. No effusions. Liver: Mild fatty infiltration.. No measurable mass. Gallbladder and biliary tract: No radiodense calculus or dilation. Pancreas: Normal density, no abnormal calcifications or inflammatory process. Spleen: Normal. Kidneys: Normal size, contour and axis. No radiodense stones or obstructive uropathy. No masses seen. Adrenal glands: No masses seen. Abdominal Aorta: Abdominal portion non-dilated. Small hiatal hernia. Wall thickening of lower esophagus. Stomach not distended. No evidence of perforation. PELVIS: Bladder: Empty.. Question of wall thickening versus under distension. No calculi. Bowel: No obstruction or bowel wall thickening. Appendix normal. Peritoneal cavity: No ascites, collection or mesenteric inflammatory response. Bones: Within normal limits for age. Reproductive organs: Within normal limits. Lymph nodes: Unremarkable. Impression: Small hiatal hernia. Mild wall thickening of the lower esophagus. Question of bladder wall thickening versus under distention. Partially visualized patchy infiltrates right lower lobe. 1409: [facility] [place] called to consult with GI. 1425: Spoke with Dr. Ramirez with [facility] [place] [facility] regarding patient case and details. He recently follow-up in the clinic. He does recommend checking an INR and given patient on a PPI patient does have omeprazole listed in his medications. He also recommends an outpatient lab of HIV. 1435: Patient given Diet Lino Altaf for PO challenge 1454: Patient was able to hold down entire can of lino altaf and is requesting to be discharged home at this time. Medical Records Medical records reviewed: Yes I reviewed the patient's medical records. Medical records narrative: Previous labs show reactive for hepatitis C. Patient did not follow-up with primary care after last visit. Lab Data Lab results reviewed: Yes I reviewed the patient's lab results. HPI General Mode of arrival: ambulatory. Date/Time Provider Initiated Documentation: 05/15/21 11:54. Limitations to Documentation: no limitations. Information obtained by: patient, RN notes reviewed and old records reviewed. HPI Narrative: 31-year-old male with history of type 1 diabetes presents the ER chief complaint of nausea vomiting since Saturday. Reports he is unable to keep anything down. He denies any abdominal pain or diarrhea. Denies any fever or chills. He has a history of IV drug abuse none used in the last 6 months. He also reports that he has not drank any alcohol since August of this year. No other associated symptoms. Patient is vaccinated. Related Data Home Medications Medication Instructions Recorded Confirmed Lantus U-100 Insulin 24 unit SUBCUT DAILY 01/19/20 04/20/21 Lantus U-100 Insulin 24 unit SUBCUT DAILY 01/19/20 05/15/21 insulin aspart U-100 [Novolog 1 sliding scale dose SUBCUT 01/19/20 05/15/21 U-100 Insulin aspart] USEASDIRECTD buprenorphine-naloxone 2.5 tab SUBLINGUAL DAILY 04/20/21 05/15/21 cholecalciferol (vitamin D3) 1,000 mcg PO DAILY 04/20/21 05/15/21 [Vitamin D3] gabapentin 600 mg PO TID 04/20/21 05/15/21 omeprazole 20 mg PO DAILY 04/20/21 05/15/21 metoclopramide HCl [Reglan] 10 mg PO Q6H PRN #10 tab 05/15/21 Previous Rx's Medication Instructions Recorded metoclopramide HCl [Reglan] 10 mg PO Q6H PRN #10 tab 05/15/21 Allergies Allergy/AdvReac Type Severity Reaction Status Date / Time No Known Allergies Allergy Unverified 05/15/21 12:22 General TOR: 3 Review of Systems All systems reviewed & are unremarkable except as noted in HPI and below Gastrointestinal Gastrointestinal: Denies abdominal pain, Denies diarrhea, Reports nausea and Reports vomiting PFSH All Active Problems (Updated 05/15/21 @ 14:05 by Kourtney Santacruz) Hepatitis C antibody positive in blood (Acute) DKA (diabetic ketoacidosis) (Acute) Vomiting (Acute) Medical History Narcotic abuse in remission Type I diabetes mellitus Surgical History No significant past surgical history Social History Smoking/Tobacco Use Status: Current every day Tobacco Type: smokeless tobacco Tobacco: How many years used: 20 Smoking risk assessment performed?: Yes Alcohol Intake: former Drug use: Never Substance use type: does not use Details: pt states he chews. Pt states he chews a tin a day Do you feel safe at home: Yes Do you feel safe in your relationship?: Yes Exam Narrative Exam Narrative: Constitutional: Alert and oriented x3. Appears stated age. Normal body habitus. Head: Normocephalic, no trauma. Eyes: Pupils PERRL, Red reflex noted, EOM's intact. Eyelids symmetrical without lesions, discharge, or swelling. ENT: Bilateral TM's WNL, External ear normal to inspection, no mastoid TTP, swelling, or erythema, Nasal turbinates WNL, no nasal discharge. Normal dentition, Posterior pharynx WNL, no exudate. Chest: RRR, Normal S1, S2, distal pulses intact. Resp: Lungs clear to auscultation bilaterally, no wheezes, rales, or rhonchi. Abdomen: Soft, non-distended, Normoactive bowel sounds all 4 quads. Musculoskeletal: Normal gait, 5/5 strength to all four extremities. Skin: No suspicious rashes or lesions. Capillary refill less than 2 sec. Neurologic: Cranial nerves II-XII intact. Alert and oriented x 3. Motor: No deficits noted. Sensory: Intact bilaterally all 4 extremities. Reflexes: DTR's intact bilaterally.. Hematologic/Lymphatic: No ecchymosis, no lymphadenopathy.
[2021-05-15] MEDS: Normal Saline 1,000 ML 1000 ML IV ×2 (12:25→14:43)
[2021-05-15] MEDS: Ondansetron 4 MG/2 ML VIAL IVP (12:25)
[2021-05-15 12:30] LABS: BE (Venous) 2 mmol/L (-2-3); HCO3 (Venous) 25 mmol/L (23-28); O2 Sat (Venous) 40 %; TCO2 (Venous) 21 mmol/L (24-29); pCO2 (Venous) 28 mmHg (41-51); pH (Venous) 7.55 (7.31-7.41); pO2 (Venous) 20 mmHg
[2021-05-15 12:35] LABS: Abs Immature Grans 0.05 10^3/uL (0.0-0.06); Absolute Basophil Count 0.04 10^3/uL (0.0-0.2); Absolute Lymphocyte Count 1.03 10^3/uL (1.2-3.4); Absolute Monocyte Count 0.23 10^3/uL (0.1-0.8); Absolute Neutrophil Count 12.14 10^3/uL (1.2-6.7); Basophils % 0.3; HGB 14.7 g/dL (13.5-17.5); Immature Grans % 0.4; Lymphocytes % 7.6; MCH 28.2 pg (27.0-33.0); MCHC 33.4 % (32.0-36.0); MCV 84.3 fL (80-95); MPV 9.5 fL (8.0-11.0); Monocytes % 1.7; Nucleated RBC 0 %; Platelet Count 263 10^3/uL (130-400); RBC 5.22 10^6/uL (4.36-5.78); RDW 20.7 % (11.8-14.1); RDW-SD 62.9 fL; WBC 13.49 10^3/uL (4.4-10.8)
[2021-05-15 12:42] LABS: Anisocytosis 2+; Diff Comment RBC Morph Reviewed
[2021-05-15 12:46] LABS: ALT 431 U/L (16-63); AST 570 U/L (15-37); Albumin 3.8 g/dL (3.4-5.0); Alkaline Phosphatase 368 U/L (46-116); Anion Gap 18.4 mmol/L (3-11); BUN 14 mg/dL (7-18); Bilirubin, Total 4.7 mg/dL (0.2-1.0); CO2 23.6 mmol/L (21.0-32.0); Calcium 9.8 mg/dL (8.5-10.1); Chloride 98 mmol/L (98-107); Glucose 199 mg/dL (74-106); Potassium 3.2 mmol/L (3.5-5.1); Sodium 140 mmol/L (136-145); Total Protein 9.2 g/dL (6.4-8.2)
[2021-05-15] MEDS: FAMOTIDINE 20 MG/50 ML BAG 200 MG IVPB (12:48)
[2021-05-15] MEDS: Metoclopramide 10 MG/2 ML VIAL IVP ×2 (12:49→13:42)
[2021-05-15 13:06] LABS: Lipase 30 U/L (73-393)
[2021-05-15 13:42] LABS: Bilirubin Small (Negative); Blood Negative (Negative); Clarity Clear (Clear); Glucose 250 mg/dL (Negative); Ketones >=160 mg/dL (Negative); Leukocyte Esterase Negative (Negative); Nitrite Negative (Negative); pH 8.5 (5-8)
[2021-05-15] MEDS: MAGNESIUM SULFATE 1 GM/100 ML BAG IVPB (13:42)
[2021-05-15 13:43] LABS: *AMPHETAMINES SCREEN URINE Negative (Negative); *BARBITURATES SCREEN URINE Negative (Negative); *BENZODIAZEPINES SCREEN URINE Negative (Negative); Cannabinoids THC Negative (Negative); Cocaine Screen,Urine Negative (Negative); METHADONE URINE SCREEN Negative (Negative); OPIATES URINE SCREEN Negative (Negative)
[2021-05-15] MEDS: Omnipaque 350 MG/ML 100 ML BTL IJ (13:44)
--- NOTE | 2021-05-15 13:45 | DI.CT_ITS ---
Exam(s) CT ABDOMEN PELVIS W EXAM: CT ABDOMEN PELVIS W CLINICAL HISTORY: Nausea, Vomiting,. TECHNIQUE: Imaging Protocol: Axial computed tomography images with coronal and sagittal reformatted images were created and reviewed CONTRAST MATERIAL: Intravenous: Omnipaque 350 Contrast volume:100 ml Oral: / no COMPARISON: No exams were available for comparison FINDINGS: ABDOMEN: Lung Bases: Patchy infiltrates right lower lobe. No effusions. Liver: Mild fatty infiltration.. No measurable mass. Gallbladder and biliary tract: No radiodense calculus or dilation. Pancreas: Normal density, no abnormal calcifications or inflammatory process. Spleen: Normal. Kidneys: Normal size, contour and axis. No radiodense stones or obstructive uropathy. No masses seen. Adrenal glands: No masses seen. Abdominal Aorta: Abdominal portion non-dilated. Small hiatal hernia. Wall thickening of lower esophagus. Stomach not distended. No evidence of per foration. PELVIS: Bladder: Empty.. Question of wall thickening versus under distension. No calculi. Bowel: No obstruction or bowel wall thickening. Appendix normal. Peritoneal cavity: No ascites, collection or mesenteric inflammatory response. Bones: Within normal limits for age. Reproductive organs: Within normal limits. Lymph nodes: Unremarkable. Impression: Small hiatal hernia. Mild wall thickening of the lower esophagus. Question of bladder wall thickeni ng versus under distention. Partially visualized patchy infiltrates right lower lobe. Findings called to Kourtney Montejo of the emergency department. RADIATION DOSE DELIVERED: 697.91mGy.cm Total DLP DATA REPOSITORY: All CT scans at this facility are submitted to the National Radiology Data Registry (NRDR) Dose Index Registry (DIR) with the [employer] (ACR). RADIATION OPTIMIZATION: All CT scans at this facility use at least one of these dose optimization te chniques: automated exposure control; mA and/or kV adjustment per patient size (includes targeted exa ms where dose is matched to clinical indication); or iterative reconstruction.
[2021-05-15 13:49] LABS: Tricyclic Antidepressants Negative (Negative)
[2021-05-15 14:04] LABS: Bacteria Negative HPF (Negative); C & S Indicated? No; Casts 0-2 Hyaline LPF (Negative); Crystals Negative HPF (Negative); Epithelial Cells Rare HPF (Negative); Mucus Trace (Negative); RBC Negative HPF (0-2); WBC Negative HPF (0-5)
[2021-05-15 14:16] LABS: Source Nasal/Nares
[2021-05-15 15:01] LABS: COVID-19 PCR Negative (Negative)
== END 2021-05-15 15:06 | disposition home or self-care (01) ==
PROVIDERS: Emergency Provider Registered Nurse Emergency; PCP Internal Medicine
DX: B19.20 Unspecified viral hepatitis C without hepatic coma (principal); R11.2 Nausea with vomiting, unspecified; E10.9 Type 1 diabetes mellitus without complications
CPT/HCPCS: 36415; 36416; 80053; 80307; 82805; 82962; 83690; 87635; 96361; 96365; 96375; 96376; 99284; 74177; 81003; 81015; 83735; 85025; 85610; J2405; J2765; J3475; J3490

== ENCOUNTER 2021-06-29 04:20 | Inpatient (IN) | payer OTHER, SELFPAY ==
[2021-06-29] VITALS (41 sets, daily range): BP systolic 131–169; BP diastolic 61–104; PULSE 86–145; RESP 15–34; TEMP 36.1–37.2; O2SAT 96–100
--- NOTE | 2021-06-29 05:00 | DI.CT_ITS ---
Exam(s) CT CHEST/ABD/PEL W EXAM: CT CHEST/ABD/PEL W CLINICAL HISTORY: wretching 2 days, hep c, hematemasis, r/o tear TECHNIQUE: CT examination of the chest, abdomen, and pelvis was performed with intravenous infusion of 100 cc of Omnipaque 350. COMPARISON: CT CT ABDOMEN PELVIS W from 05/15/2021 FINDINGS: The lungs are predominantly clear with small nonspecific ground-glass radiodensities in the lingula a nd in the right lower lobe period. There is no pleural effusion seen. There is no mediastinal or hilar adenopathy. Pulmonary arteries are unremarkable with no evidence of pulmonary embolic disease. Thoracic aorta and major branches appear intact with no evidence of aneurysm or dissection. No bony abnormality seen in the thorax. There is wall thickening of the distal esophagus, this is a nonspecific finding but may reflect infla mmation. Esophagoscopy may be considered if clinically appropriate. There is no evidence esophageal rupture nor is there a paraesophageal fluid collection. The liver is normal appearance. Gallbladder and bile ducts are CT normal. No abnormality seen involving the spleen. Pancreas appears intact. The adrenals are unremarkable in appearance. The kidneys appear intact with no evidence of hydroneph rosis or nephrolithiasis. Abdominal aorta and major visceral branches appear intact. No significant abdominal wall hernia seen. No significant abdominal or pelvic adenopathy. No focal bowel pathology. No evidence of appendicitis or diverticulitis. IMPRESSION: Wall thickening of the distal half of the esophagus, nonspecific finding, consider esophagitis. Plea se correlate clinically.. RADIATION DOSE DELIVERED: 891.8mGy.cm Total DLP 891.8mGy.cm Total DLP CTDIvol
--- NOTE | 2021-06-29 05:02 | ED.GENADUL_ITS ---
Discharge Plan Disposition Patient Disposition: [facility] INPATIENT Condition: Improving Discharge Details Clinical Impression: Vomiting, Dehydration Primary Care Provider: Tony Connors ED Provider: Ankit De La Cruz Home Meds and New Rx's Prescriptions: No Action Lantus U-100 Insulin 100 unit/mL Solution 24 unit SUBCUT DAILY RF: 0 Lantus U-100 Insulin 100 unit/mL Solution 24 unit SUBCUT DAILY RF: 0 insulin aspart U-100 [Novolog U-100 Insulin aspart] 100 unit/mL Solution 1 sliding scale dose SUBCUT USEASDIRECTD RF: 0 gabapentin 600 mg Tablet 600 mg PO TID RF: 0 buprenorphine-naloxone 8-2 mg Tablet, Sublingual 2.5 tab SUBLINGUAL DAILY RF: 0 cholecalciferol (vitamin D3) [Vitamin D3] 25 mcg (1,000 unit) Tablet 1,000 mcg PO DAILY RF: 0 omeprazole 20 mg Tablet,Delayed Release (Dr/Ec) 20 mg PO DAILY RF: 0 metoclopramide HCl [Reglan] 10 mg tablet 10 mg PO Q6H PRN (Reason: nausea and vomiting) Qty: 10 RF: 0 Medical Decision Making 31-year-old male with a past medical history is recent hepatitis C diagnosis, type 1 diabetes mellitus, who presents today for vomiting. He states that for the last 3 days he has had multiple episodes of vomiting, vomiting roughly every 15 minutes. He admits to nausea in the epigastric region but denies any abdominal pain or chest pain. He states that over the last few hours he has noticed dark coffee ground looking components to his vomit. He states that he cannot keep anything down. He denies any IV or illicit drugs. 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 No other complaints at this time. No other modifying factors. Physical exam demonstrates no pain or in the abdomen or epigastric tenderness. No subcutaneous crepitus in the neck or chest. Differential includes DKA, gastroenteritis, or pancreatitis. Hepatitis related pathology is also on the differential. Symptoms at this time appearing consistent with [place] tear. Patient used to drink alcohol but no longer does, Clover-Foley less likely. More likely a mild gastric ulcer causing the bleeding. Will give Protonix, famotidine, Carafate, rehydrate, monitor closely and reassess. 6:30 AM Laboratory work-up demonstrates a lactate of nine, and anion gap greater than 25, transaminitis is actually slightly improved. No white count. VBG demonstrates alkalosis. Symptoms inconsistent with DKA. Suspect contraction alkalosis secondary to vomiting. Will rehydrate, start on Protonix, famotidine, continue hydration, admit to medicine. Discussed case with Dr. Junie Acosta. She agrees with the assessment and plan. I have extensively reviewed the treatment plan with the patient. I have addressed all patient concerns at this time. I have also discussed the plan with the admitting physician and they agree with the current assessment and plan and have agreed to assume responsibility for the patient. All parties demonstrate verbal understanding and agreement with our assessment and plan at this time. The documentation in this chart was dictated using [employer] dictation software. Please excuse any dictation errors. FINDINGS: Lungs: Minimal ground-glass density in the lingula No consolidation. No masses. Pleural spaces: Unremarkable. No pneumothorax. No pleural effusion. Heart: Unremarkable. No cardiomegaly. No pericardial effusion. Aorta: Unremarkable. No aortic aneurysm. Lymph nodes: Unremarkable. No enlarged lymph nodes. Bones/joints: Unremarkable. No acute fracture. Soft tissues: Unremarkable. Mild to moderate distal esophageal thickening IMPRESSION: Mild to moderate distal esophageal thickening. No pleural effusion or pneumothorax to suggest esophageal tear. Dedicated esophagram may be helpful as clinically indicated FINDINGS: Liver: Hepatomegaly and diffuse fatty infiltrationNo mass. Gallbladder and bile ducts: Normal. No calcified stones. No ductal dilation. Pancreas: Normal. No ductal dilation. Spleen: Normal. No splenomegaly. Adrenal glands: Normal. No mass. Kidneys and ureters: Normal. No hydronephrosis. Stomach and bowel: Unremarkable. No obstruction. No mucosal thickening. Appendix: No evidence of appendicitis. Intraperitoneal space: Unremarkable. No free air. No significant fluid collection. Vasculature: Unremarkable. No abdominal aortic aneurysm. Lymph nodes: Unremarkable. No enlarged lymph nodes. Urinary bladder: Decompressed and mildly thickened Reproductive: Unremarkable as visualized. Bones/joints: Unremarkable. No acute fracture. Soft tissues: Unremarkable. IMPRESSION: No acute findings. Thank you for allowing us to participate in the care of your patient. Dictated and Authenticated by: Darwin Simms MD 06/29/2021 5:55 AM Eastern Time ([place] & [place]) HPI General Date/Time Provider Initiated Documentation: 06/29/21 04:33 . HPI Narrative: 31-year-old male with a past medical history is recent hepatitis C diagnosis, type 1 diabetes mellitus, who presents today for vomiting. He states that for the last 3 days he has had multiple episodes of vomiting, vomiting roughly every 15 minutes. He admits to nausea in the epigastric region but denies any abdominal pain or chest pain. He states that over the last few hours he has noticed dark coffee ground looking components to his vomit. He states that he cannot keep anything down. He denies any IV or illicit drugs. 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 No other complaints at this time. No other modifying factors. Related Data Home Medications Medication Instructions Recorded Confirmed Lantus U-100 Insulin 24 unit SUBCUT DAILY 01/19/20 04/20/21 Lantus U-100 Insulin 24 unit SUBCUT DAILY 01/19/20 05/15/21 insulin aspart U-100 [Novolog 1 sliding scale dose SUBCUT 01/19/20 05/15/21 U-100 Insulin aspart] USEASDIRECTD buprenorphine-naloxone 2.5 tab SUBLINGUAL DAILY 04/20/21 05/15/21 cholecalciferol (vitamin D3) 1,000 mcg PO DAILY 04/20/21 05/15/21 [Vitamin D3] gabapentin 600 mg PO TID 04/20/21 05/15/21 omeprazole 20 mg PO DAILY 04/20/21 05/15/21 metoclopramide HCl [Reglan] 10 mg PO Q6H PRN #10 tab 05/15/21 Previous Rx's Medication Instructions Recorded metoclopramide HCl [Reglan] 10 mg PO Q6H PRN #10 tab 05/15/21 Allergies Allergy/AdvReac Type Severity Reaction Status Date / Time No Known Allergies Allergy Unverified 05/15/21 12:22 General Stated Complaint: Nausea/Vomit/Diar TOR: 3 Review of Systems All systems reviewed & are unremarkable except as noted in HPI and below PFSH All Active Problems (Updated 06/29/21 @ 07:56 by Ankit De La Cruz DO) Dehydration (Acute) Hepatitis C antibody positive in blood (Acute) DKA (diabetic ketoacidosis) (Acute) Vomiting (Acute) Medical History Narcotic abuse in remission Type I diabetes mellitus Surgical History No significant past surgical history Social History Smoking/Tobacco Use Status: Current every day Tobacco Type: smokeless tobacco Tobacco: How many years used: 20 Smoking risk assessment performed?: Yes Alcohol Intake: former Drug use: Never Substance use type: does not use Details: pt states he chews. Pt states he chews a tin a day Do you feel safe at home: Yes Do you feel safe in your relationship?: Yes Exam Narrative Exam Narrative: 1.Const: Well-nourished, Well-developed, appearing stated age 2.Eyes: PERRL, no conjunctival injection, and symmetrical lids. 3.ENT: Atraumatic external nose and ears. Moist MM. Neck: Symmetric, trachea midline, No thyromegaly. No subcutaneous crepitus around the neck or chest 4.CVS: +S1/S2, No murmurs or gallops. Peripheral pulses 2+ and equal in all extremities. Brisk capillary refill in all extremities. 5.RESP: Unlabored respiratory effort. Clear to auscultation bilaterally. No wheezes rales or rhonchi 6.GI: Soft, Nontender/Nondistended, No hepatosplenomegaly. No guarding or rebound. No pain at McBurney's point, negative Espinoza sign. 7.MSK: Normocephalic/Atraumatic, Extremities w/o deformity or ttp No cyanosis or clubbing, Normal movement of all extremities 8.Skin: Pale in color 9.Neuro: auricular detoxification specialist II-XII grossly intact. Sensation grossly intact, no focal neurologic deficits. 10.Psych: (AAO) x3. Appropriate mood and affect Course Vital Signs Vital signs: Vital Signs Temperature 36.3 C L 06/29/21 04:42 Pulse 118 H 06/29/21 04:42 Respiratory Rate 06/29/21 04:42 Blood Pressure 154/104 H 06/29/21 04:42 Pulse Oximetry 100 06/29/21 04:42 Temperature 36.3 C L 06/29/21 04:42 Temperature Source Temporal Artery Scan 06/29/21 04:42 Pulse 118 H 06/29/21 04:42 Respiratory Rate 22 06/29/21 04:42 Blood Pressure 154/104 H 06/29/21 04:42 Pulse Oximetry 100 06/29/21 04:42 Oxygen Delivery Method Room Air 06/29/21 04:42 Oxygen Flow Rate 0 06/29/21 04:42 Pain Level 0 06/29/21 04:42
[2021-06-29] MEDS: Normal Saline 1,000 ML 1000 ML IV ×2 (05:06→05:37)
[2021-06-29] MEDS: Pantoprazole 40 MG VIAL IVP ×2 (05:06→20:35)
[2021-06-29] MEDS: Sucralfate 1 GM TAB PO ×3 (05:06→18:25)
[2021-06-29] MEDS: Ondansetron 4 MG/2 ML VIAL IVP (05:06)
[2021-06-29 05:08] LABS: BE (Venous) -6 mmol/L (-2-3); HCO3 (Venous) 18 mmol/L (23-28); O2 Sat (Venous) 52 %; TCO2 (Venous) 15 mmol/L (24-29); pCO2 (Venous) 24 mmHg (41-51); pH (Venous) 7.47 (7.31-7.41); pO2 (Venous) 27 mmHg
[2021-06-29 05:09] LABS: Abs Immature Grans 0.05 10^3/uL (0.0-0.06); Absolute Basophil Count 0.04 10^3/uL (0.0-0.2); Absolute Lymphocyte Count 0.64 10^3/uL (1.2-3.4); Absolute Monocyte Count 0.82 10^3/uL (0.1-0.8); Absolute Neutrophil Count 7.18 10^3/uL (1.2-6.7); Basophils % 0.5; HCT 44.6 % (40.0-50.0); HGB 15.6 g/dL (13.5-17.5); Immature Grans % 0.6; Lymphocytes % 7.3; MCH 31.3 pg (27.0-33.0); MCV 89.6 fL (80-95); MPV 9.7 fL (8.0-11.0); Monocytes % 9.4; Neutrophils % 82.2; Nucleated RBC 0 %; Platelet Count 201 10^3/uL (130-400); RBC 4.98 10^6/uL (4.36-5.78); RDW 17.2 % (11.8-14.1); RDW-SD 55.8 fL; WBC 8.73 10^3/uL (4.4-10.8)
[2021-06-29 05:11] LABS: Lactate 9.2 mmol/L (0.6-1.4)
[2021-06-29] MEDS: FAMOTIDINE 20 MG/50 ML BAG 200 MG IVPB (05:11)
[2021-06-29] MEDS: Famotidine 20 MG/2 ML VIAL (05:12)
[2021-06-29 05:26] LABS: Lipase 25 U/L (73-393)
[2021-06-29 05:29] LABS: ALT 210 U/L (16-63); AST 297 U/L (15-37); Albumin 3.9 g/dL (3.4-5.0); Alkaline Phosphatase 258 U/L (46-116); Anion Gap 28.5 mmol/L (3-11); BUN 18 mg/dL (7-18); Bilirubin, Total 5.1 mg/dL (0.2-1.0); CO2 16.5 mmol/L (21.0-32.0); CREATININE 1.4 mg/dL (0.70-1.30); Calcium 9.7 mg/dL (8.5-10.1); Chloride 91 mmol/L (98-107); ETHANOL BLOOD 3.1 mg/dL (<10); Estimated GFR 58.37 (mL/min/1.73m2); Glucose 371 mg/dL (74-106); Sodium 136 mmol/L (136-145)
[2021-06-29 05:32] LABS: INR 1.1 (0.9-1.1); PTT Activated 22.7 sec (21.0-27.5); Prothrombin Time 11.2 sec (9.3-11.0)
[2021-06-29] MEDS: Metoclopramide 10 MG/2 ML VIAL (05:37)
[2021-06-29] MEDS: Ondansetron 4 MG/2 ML VIAL (05:38)
[2021-06-29] MEDS: Omnipaque 350 MG/ML 100 ML BTL IJ (05:48)
--- NOTE | 2021-06-29 05:57 | DI.VRAD_ITS ---
PROCEDURE INFORMATION: Exam: CT Chest With Contrast; Diagnostic Exam date and time: 06/29/2021 5:13 AM Age: 31 years old Clinical indication: Other: Wretching 2 days, hep c, hematemasis, R/O tear TECHNIQUE: Imaging protocol: Diagnostic computed tomography of the chest with contrast. 3D rendering (Not supervised by radiologist): MIP and/or 3D reconstructed images were created by the technologist. COMPARISON: CT ABDOMEN PELVIS W 05/15/2021 1:39 PM FINDINGS: Lungs: Minimal ground-glass density in the lingula No consolidation. No masses. Pleural spaces: Unremarkable. No pneumothorax. No pleural effusion. Heart: Unremarkable. No cardiomegaly. No pericardial effusion. Aorta: Unremarkable. No aortic aneurysm. Lymph nodes: Unremarkable. No enlarged lymph nodes. Bones/joints: Unremarkable. No acute fracture. Soft tissues: Unremarkable. Mild to moderate distal esophageal thickening IMPRESSION: Mild to moderate distal esophageal thickening. No pleural effusion or pneumothorax to suggest esophageal tear. Dedicated esophagram may be helpful as clinically indicated PROCEDURE INFORMATION: Exam: CT Abdomen And Pelvis With Contrast Exam date and time: 06/29/2021 5:13 AM Age: 31 years old Clinical indication: Other: Wretching 2 days, hep c, hematemasis, R/O tear TECHNIQUE: Imaging protocol: Computed tomography of the abdomen and pelvis with contrast. 3D rendering (Not supervised by radiologist): MIP and/or 3D reconstructed images were created by the technologist. COMPARISON: CT ABDOMEN PELVIS W 05/15/2021 1:39 PM FINDINGS: Liver: Hepatomegaly and diffuse fatty infiltrationNo mass. Gallbladder and bile ducts: Normal. No calcified stones. No ductal dilation. Pancreas: Normal. No ductal dilation. Spleen: Normal. No splenomegaly. Adrenal glands: Normal. No mass. Kidneys and ureters: Normal. No hydronephrosis. Stomach and bowel: Unremarkable. No obstruction. No mucosal thickening. Appendix: No evidence of appendicitis. Intraperitoneal space: Unremarkable. No free air. No significant fluid collection. Vasculature: Unremarkable. No abdominal aortic aneurysm. Lymph nodes: Unremarkable. No enlarged lymph nodes. Urinary bladder: Decompressed and mildly thickened Reproductive: Unremarkable as visualized. Bones/joints: Unremarkable. No acute fracture. Soft tissues: Unremarkable. IMPRESSION: No acute findings. Dictated and Authenticated by: Darwin Simms MD. Ordering:LLUVIA Pham MD
[2021-06-29 06:53] LABS: Source Nasal/Nares
--- NOTE | 2021-06-29 07:01 | NUR.NOTE ---
Report to Lisa GALLARDO
[2021-06-29 07:32] LABS: COVID-19 PCR Negative (Negative)
--- NOTE | 2021-06-29 07:38 | W.PM.HP.N ---
Date of service: 06/29/21 Time of Service: 07:38 Assessment and Plan Assessment and plan (1) MILADY (acute kidney injury): Status: Acute Assessment and plan: This is likely in the setting of dehydration and likely will improved with continued IVF resuscitation. I will avoid NS given the potential for worse renal outcomes. - LR at 125cc/hr - continue to monitor - holding home gabapentin (2) Lactic acidosis: Status: Acute Assessment and plan: Quite elevated to 9, will repeat a level after resuscitation. This again is likely due to dehydration in the setting of refractory vomiting. - repeat lactate level (3) Vomiting: Status: Acute Assessment and plan: He has diabetes and delayed gastric emptying on Reglan as an outpatient. This seems to be the most likely etiology. I do not think he has true hematemesis and rather the positive blood in gastric contents due to the vomiting. He likely will not need EGD during this admission unless he has a clinical change. - continue home Reglan - Zofran IV 4mg prn - IVF - NPO with sips and chips ok - Protonix IV 40mg bid - Carafate started (4) Hepatitis C antibody positive in blood: Status: Acute Assessment and plan: Follows with [facility] hepatology - order to request records placed (5) Type I diabetes mellitus: Assessment and plan: He is on Lantus 22 U and a carb sliding scale for mealtime insulin. - continue home Lantus 22U daily - sliding scale insulin ordered (6) Hepatitis: Status: Acute Assessment and plan: LFT's improved from last labs available - continue to monitor (7) Metabolic acidosis: Status: Acute Assessment and plan: He has a mixed GAP metabolic acidosis and alkalosis. The etiology of his methabolic acidosis is likely multifactorial with the major contributor likely to be the lactic acidosis, however his glucose is elevated so may be contributing as well. He has an MILADY but his BUN is normal so this is unlikely contributing to his GAP acidosis. - IVF with LR at 125/hr - he will be getting his insulin - recheck lactate level (8) Metabolic alkalosis: Status: Acute Assessment and plan: As above he has a mixed metabolic alkalosis and GAP acidosis. The metabolic alkalosis is due to his vomiting. - LR as above - Zofran and Reglan as above (9) History of drug abuse in remission: Status: Acute Assessment and plan: On suboxone therapy as an outpatient - continue his home suboxone History of Present Illness Narrative: This is a 31 yo man with IDDM, suboxone use, delayed gastric emptying, hepatitis C and hepatitis (no cirrhosis) from this who [facility]. He reportedly was having hematemesis with an MILADY and a lactic acidosis of 9. He was transiently hypotensive on arrival but this improved with IVF resuscitation. On my evaluation he tells me that he vomits similar to this once a month for the past few months with no blood. He denies vomiting any blood during this instance as well. He tells me that he had a cranberry cocktail and thinks that's why the vomit looked red. Per the ED the gastric contents tested positive for blood. He has stomach pains related to the vomiting. He tells me he underwent [facility] which was normal per the patient. [facility] to figure out what is going on but per the patient they have been unsuccessful with this. He is not having chest pains of trouble breathing. He underwent CT imaging that found no esophageal tears and was ultimately normal with the exception of esophageal thickening. He is stable on my evaluation and once his lactate improves will be safe for med-surg. He also tells me that if her needed an endoscopy he would like to have it done at the [facility]. Review of Systems All systems reviewed & are unremarkable except as noted in HPI and below PFSH All Active Problems (Updated 06/29/21 @ 08:33 by Junie Ribeiro MD) History of drug abuse in remission (Acute) Metabolic alkalosis (Acute) Metabolic acidosis (Acute) Hepatitis (Acute) Lactic acidosis (Acute) MILADY (acute kidney injury) (Acute) Dehydration (Acute) Hepatitis C antibody positive in blood (Acute) Vomiting (Acute) Medical History (Updated 06/29/21 @ 08:33 by Junie Ribeiro MD) DKA (diabetic ketoacidosis) Narcotic abuse in remission Type I diabetes mellitus Surgical History No significant past surgical history Social History Smoking/Tobacco Use Status: Current every day Tobacco Type: smokeless tobacco Tobacco: How many years used: 20 Smoking risk assessment performed?: Yes Alcohol Intake: former Drug use: Never Substance use type: does not use Details: pt states he chews. Pt states he chews a tin a day Do you feel safe at home: Yes Do you feel safe in your relationship?: Yes Meds Allergies and Home Medications Allergies Allergy/AdvReac Type Severity Reaction Status Date / Time No Known Allergies Allergy Unverified 05/15/21 12:22 Home Medications Medication Instructions Recorded Confirmed Type Lantus U-100 Insulin 24 unit SUBCUT DAILY 01/19/20 05/15/21 History Lantus U-100 Insulin 24 unit SUBCUT DAILY 01/19/20 06/29/21 History insulin aspart U-100 [Novolog 1 sliding scale dose SUBCUT 01/19/20 06/29/21 History U-100 Insulin aspart] USEASDIRECTD buprenorphine-naloxone 2.5 tab SUBLINGUAL DAILY 04/20/21 06/29/21 History cholecalciferol (vitamin D3) 1,000 mcg PO DAILY 04/20/21 06/29/21 History [Vitamin D3] gabapentin 600 mg PO TID 04/20/21 06/29/21 History omeprazole 20 mg PO DAILY 04/20/21 06/29/21 History metoclopramide HCl [Reglan] 10 mg PO Q6H PRN #10 tab 05/15/21 06/29/21 Rx Exam Const General: no acute distress Nutritional Appearance: well nourished [facility] Head: normocephalic Ears: external ears normal and no periauricular adenopathy General nose exam: nasal mucous membranes and turbinates normal Face and sinus: sinuses nontender Mouth: oropharynx normal and other (dry mucus membranes) Teeth and gingiva: dentition normal Eyes General: appearance normal, both eyes and all related structures Pupils: PERRL Neck Neck: normal visual inspection and no lymphadenopathy Chest Chest: normal inspection of the chest Resp Effort & Inspection: normal respiratory effort Auscultation: clear to auscultation bilaterally, no rales, no rhonchi and no wheezes Cardio Rate: regular rate Rhythm: regular rhythm Heart Sounds: S1 normal, S2 normal and no murmurs Pulses: radial pulses present bilaterally GI Inspection: normal to inspection Palpation: soft and tender Skin General skin exam: no rashes or lesions noted Neuro General: patient alert, patient awake and patient oriented x3 Extrem General: no clubbing, cyanosis or edema Psych Mental Status: mental status grossly normal Affect: normal affect Attitude: cooperative Results Labs Result diagrams: 06/29/21 04:45 06/29/21 04:45 Labs: Laboratory Results - last 24 hr 06/29/21 06/29/21 06/29/21 04:45 04:45 04:45 WBC RBC Hgb Hct MCV MCH MCHC RDW Plt Count MPV Immature Gran % Neutrophils % Lymphocytes % Monocytes % Eosinophils % Basophils % Nucleated RBC % Absolute Neutrophils Absolute Lymphocytes Absolute Monocytes Absolute Eosinophils Absolute Basophils PT INR APTT VBG pH VBG pCO2 VBG pO2 VBG HCO3 VBG Total CO2 VBG O2 Saturation VBG Base Excess VBG Lactate 9.2 H* Sodium 136 Potassium 4.0 Chloride 91 L Carbon Dioxide 16.5 L Anion Gap 28.5 H BUN 18 Creatinine 1.4 H Estimated GFR/1.73 m2 58.37 Glucose 371 H Calcium 9.7 Total Bilirubin 5.1 H AST 297 H ALT 210 H Alkaline Phosphatase 258 H Total Protein 9.0 H Albumin 3.9 Lipase 25 Ethyl Alcohol 3.1 COVID-19 Source SARS-CoV-2 (PCR) 06/29/21 06/29/21 06/29/21 04:45 04:45 04:45 WBC 8.73 RBC 4.98 Hgb 15.6 Hct 44.6 MCV 89.6 MCH 31.3 MCHC 35.0 RDW 17.2 H Plt Count 201 MPV 9.7 Immature Gran % 0.6 Neutrophils % 82.2 Lymphocytes % 7.3 Monocytes % 9.4 Eosinophils % 0.0 Basophils % 0.5 Nucleated RBC % 0 Absolute Neutrophils 7.18 H Absolute Lymphocytes 0.64 L Absolute Monocytes 0.82 H Absolute Eosinophils 0.00 Absolute Basophils 0.04 PT 11.2 H INR 1.1 APTT 22.7 VBG pH 7.47 H VBG pCO2 24 L VBG pO2 27 VBG HCO3 18 L VBG Total CO2 15 L VBG O2 Saturation 52 VBG Base Excess -6 L VBG Lactate Sodium Potassium Chloride Carbon Dioxide Anion Gap BUN Creatinine Estimated GFR/1.73 m2 Glucose Calcium Total Bilirubin AST ALT Alkaline Phosphatase Total Protein Albumin Lipase Ethyl Alcohol COVID-19 Source SARS-CoV-2 (PCR) 06/29/21 06:32 WBC RBC Hgb Hct MCV MCH MCHC RDW Plt Count MPV Immature Gran % Neutrophils % Lymphocytes % Monocytes % Eosinophils % Basophils % Nucleated RBC % Absolute Neutrophils Absolute Lymphocytes Absolute Monocytes Absolute Eosinophils Absolute Basophils PT INR APTT VBG pH VBG pCO2 VBG pO2 VBG HCO3 VBG Total CO2 VBG O2 Saturation VBG Base Excess VBG Lactate Sodium Potassium Chloride Carbon Dioxide Anion Gap BUN Creatinine Estimated GFR/1.73 m2 Glucose Calcium Total Bilirubin AST ALT Alkaline Phosphatase Total Protein Albumin Lipase Ethyl Alcohol COVID-19 Source Nasal/Nares SARS-CoV-2 (PCR) Negative Last Vital Signs Temp 36.3 C L 06/29/21 04:42 Pulse 113 H 06/29/21 06:28 Resp 18 06/29/21 06:28 BP 155/74 H 06/29/21 06:28 Pulse Ox 99 06/29/21 06:28
--- NOTE | 2021-06-29 09:11 | PGE_ITS ---
Date of Service Date of service: 06/29/21 Time of Service: 09:11 Assessment and Plan Assessment and plan (1) DKA, type 1: Status: Acute Assessment and plan: Aggressive IV fluid hydration with half-normal saline with potassium chloride added to it. Begin insulin drip at 6 units/h (0.1 unit/kg/h), serial glucose fingersticks q1h, BMP q2 to 3hr to monitor electrolytes and AG; phenergan prn nausea (zofran dc'ed d/t prolonged QTC, tigan contraindicated in chronic liver disease). I had a discussion with patient to explain to him that in the setting of prolonged nausea and vomiting, that even if he is not eating he needs to continue to monitor his glucose levels and to give himself his Novolog in addition to his Lantus. He has a CGM and was not even monitoring his glucose these past two days. He should readily correct w/ hydration and insulin drip. Qualifiers: Diabetes mellitus complication detail: without coma Qualified Code(s): E10.10 - Type 1 diabetes mellitus with ketoacidosis without coma (2) Lactic acidosis: Status: Acute Assessment and plan: will repeat his lactate; I expect this to come down quickly with iv fluids (3) MILADY (acute kidney injury): Status: Acute Assessment and plan: Monitor urine output and BUN and creatinine; avoid NSAIDS. aggressive hydration should correct his MILADY. (4) Dehydration: Status: Acute Assessment and plan: iv fluids as listed above. his glucose adjusted sodium is 143. Will give half normal saline w/ potassium supplementation and monitor urine output and BMP's. Subjective Subjective Interval history since last seen: Patient presents emergency department with 2 to 3 days of nausea and vomiting and not eating. He is a type I diabetic who is on insulin. He has a CGM and usually his blood sugars run in the low 200s but for the last 2 days he is not checked his blood sugars. He has been using his Lantus daily but not giving himself any NovoLog because he was fearful of getting hypoglycemic since he was not eating. He reportedly had hematemesis although when I question the patient he says he is thrown up blood in the past and it did not look like blood to him but it did look dark brown. Apparently he had a bout of emesis in the ER it was Gastroccult positive. Lab study shows a mixed metabolic acidosis and alkalosis. Venous pH was 7.47 but his PCO2 was low at 15 and his bicarb is low at 18. He has an elevated blood lactate of 9.2 he has an anion gap of 28.5. His blood sugars were 371. Other than nausea and vomiting he denies any chest pain or shortness of breath or abdominal pains. He has had no bloody stools. He has dx of HCV but has yet to see a chemical research worker. He says that he received mail from the [facility] in [place] to set up a phone consultation that is pending. Exam Narrative Exam Narrative: Anxious young white male lying in bed alert and oriented person place time circumstance. I was unable to determine whether he had any ketones to his breath as I am wearing full PPE mask. Oropharynx he has poor dentition but I do not see any purulent discharge from his gums. Oropharynx is without injection or exudate and mucous membranes are moist. Lungs are clear to auscultation Heart is regular but tachycardic without murmur rub Abdomen soft nondistended normal active bowel sounds no palpable masses no appreciable organomegaly. Extremities showed no edema or cyanosis he has normal pedal pulses. I did not see any ulcerations on his feet or toes Objective Last Vital Signs Temp 36.1 C L 06/29/21 08:38 Pulse 108 H 06/29/21 08:31 Resp 19 06/29/21 08:31 BP 169/94 H 06/29/21 08:31 Pulse Ox 97 06/29/21 08:31 Laboratory Results - last 24 hr 06/29/21 06/29/21 06/29/21 04:45 04:45 04:45 WBC RBC Hgb Hct MCV MCH MCHC RDW Plt Count MPV Immature Gran % Neutrophils % Lymphocytes % Monocytes % Eosinophils % Basophils % Nucleated RBC % Absolute Neutrophils Absolute Lymphocytes Absolute Monocytes Absolute Eosinophils Absolute Basophils PT INR APTT VBG pH VBG pCO2 VBG pO2 VBG HCO3 VBG Total CO2 VBG O2 Saturation VBG Base Excess VBG Lactate 9.2 H* Sodium 136 Potassium 4.0 Chloride 91 L Carbon Dioxide 16.5 L Anion Gap 28.5 H BUN 18 Creatinine 1.4 H Estimated GFR/1.73 m2 58.37 Glucose 371 H Calcium 9.7 Total Bilirubin 5.1 H AST 297 H ALT 210 H Alkaline Phosphatase 258 H Total Protein 9.0 H Albumin 3.9 Lipase 25 Ethyl Alcohol 3.1 COVID-19 Source SARS-CoV-2 (PCR) 06/29/21 06/29/21 06/29/21 04:45 04:45 04:45 WBC 8.73 RBC 4.98 Hgb 15.6 Hct 44.6 MCV 89.6 MCH 31.3 MCHC 35.0 RDW 17.2 H Plt Count 201 MPV 9.7 Immature Gran % 0.6 Neutrophils % 82.2 Lymphocytes % 7.3 Monocytes % 9.4 Eosinophils % 0.0 Basophils % 0.5 Nucleated RBC % 0 Absolute Neutrophils 7.18 H Absolute Lymphocytes 0.64 L Absolute Monocytes 0.82 H Absolute Eosinophils 0.00 Absolute Basophils 0.04 PT 11.2 H INR 1.1 APTT 22.7 VBG pH 7.47 H VBG pCO2 24 L VBG pO2 27 VBG HCO3 18 L VBG Total CO2 15 L VBG O2 Saturation 52 VBG Base Excess -6 L VBG Lactate Sodium Potassium Chloride Carbon Dioxide Anion Gap BUN Creatinine Estimated GFR/1.73 m2 Glucose Calcium Total Bilirubin AST ALT Alkaline Phosphatase Total Protein Albumin Lipase Ethyl Alcohol COVID-19 Source SARS-CoV-2 (PCR) 06/29/21 06:32 WBC RBC Hgb Hct MCV MCH MCHC RDW Plt Count MPV Immature Gran % Neutrophils % Lymphocytes % Monocytes % Eosinophils % Basophils % Nucleated RBC % Absolute Neutrophils Absolute Lymphocytes Absolute Monocytes Absolute Eosinophils Absolute Basophils PT INR APTT VBG pH VBG pCO2 VBG pO2 VBG HCO3 VBG Total CO2 VBG O2 Saturation VBG Base Excess VBG Lactate Sodium Potassium Chloride Carbon Dioxide Anion Gap BUN Creatinine Estimated GFR/1.73 m2 Glucose Calcium Total Bilirubin AST ALT Alkaline Phosphatase Total Protein Albumin Lipase Ethyl Alcohol COVID-19 Source Nasal/Nares SARS-CoV-2 (PCR) Negative
[2021-06-29] MEDS: POTASSIUM CHLORIDE/0.45% NACL 1,000 ML 250 MEQ IV (09:23)
[2021-06-29] MEDS: Normal Saline Flush 10 ML SYR ×2 (09:44→20:38)
[2021-06-29] MEDS: INSULIN REGULAR IN 0.9 % NACL 100 UNIT/100 ML BAG 6 UNIT IV (10:00)
[2021-06-29 10:03] LABS: Anion Gap 19.5 mmol/L (3-11); BUN 15 mg/dL (7-18); CO2 20.5 mmol/L (21.0-32.0); CREATININE 0.9 mg/dL (0.70-1.30); Calcium 8.7 mg/dL (8.5-10.1); Chloride 96 mmol/L (98-107); Glucose 340 mg/dL (74-106); Potassium 4.5 mmol/L (3.5-5.1); Sodium 136 mmol/L (136-145)
[2021-06-29 11:24] LABS: Lactate 2.7 mmol/L (0.6-1.4)
[2021-06-29 11:25] LABS: HCT 41.1 % (40.0-50.0)
[2021-06-29 11:31] LABS: Anion Gap 17.1 mmol/L (3-11); BUN 16 mg/dL (7-18); CO2 22.9 mmol/L (21.0-32.0); CREATININE 1.2 mg/dL (0.70-1.30); Calcium 8.8 mg/dL (8.5-10.1); Chloride 99 mmol/L (98-107); Glucose 247 mg/dL (74-106); Potassium 3.9 mmol/L (3.5-5.1); Sodium 139 mmol/L (136-145)
[2021-06-29] MEDS: POTASSIUM CHLORIDE/D5-0.45NACL 1,000 ML 250 MEQ IV (13:03)
[2021-06-29 13:54] LABS: Anion Gap 15.7 mmol/L (3-11); BUN 14 mg/dL (7-18); CO2 21.3 mmol/L (21.0-32.0); CREATININE 0.9 mg/dL (0.70-1.30); Calcium 8.1 mg/dL (8.5-10.1); Chloride 97 mmol/L (98-107); Glucose 188 mg/dL (74-106); Potassium 3.6 mmol/L (3.5-5.1); Sodium 134 mmol/L (136-145)
[2021-06-29] MEDS: POTASSIUM CHLORIDE/D5-0.9%NACL 1,000 ML 150 MEQ IV (15:04)
[2021-06-29] MEDS: Potassium Chloride 10 MEQ CAPCR 40 MEQ PO (15:04)
[2021-06-29] MEDS: Buprenorphine/Naloxone 8 mg/2 mg FILM 1 EACH SL (15:39)
[2021-06-29] MEDS: Nicotine 4 MG LOZG SUC ×3 (16:04→21:27)
[2021-06-29 17:02] LABS: Anion Gap 11.9 mmol/L (3-11); BUN 14 mg/dL (7-18); CO2 26.1 mmol/L (21.0-32.0); Calcium 8.1 mg/dL (8.5-10.1); Chloride 99 mmol/L (98-107); Glucose 154 mg/dL (74-106); Potassium 3.6 mmol/L (3.5-5.1); Sodium 137 mmol/L (136-145)
[2021-06-29 17:59] LABS: Anion Gap 8.2 mmol/L (3-11); BUN 12 mg/dL (7-18); CO2 25.8 mmol/L (21.0-32.0); CREATININE 0.9 mg/dL (0.70-1.30); Chloride 99 mmol/L (98-107); Glucose 135 mg/dL (74-106); Potassium 3.9 mmol/L (3.5-5.1); Sodium 133 mmol/L (136-145)
[2021-06-29] MEDS: POTASSIUM CHLORIDE 20 MEQ/100 ML BAG 50 MEQ IVPB (18:25)
[2021-06-29 19:54] LABS: HCT 35.1 % (40.0-50.0)
[2021-06-29 20:02] LABS: Anion Gap 10.4 mmol/L (3-11); BUN 11 mg/dL (7-18); CO2 24.6 mmol/L (21.0-32.0); Calcium 8.1 mg/dL (8.5-10.1); Chloride 100 mmol/L (98-107); Potassium 4.1 mmol/L (3.5-5.1); Sodium 135 mmol/L (136-145)
[2021-06-29 20:13] LABS: Glucose 65 mg/dL (74-106)
[2021-06-29] MEDS: Insulin Glargine 300 UNITS/3 ML PEN 20 UNITS SC (21:27)
[2021-06-29] MEDS: Gabapentin 300 MG CAP 600 MG PO (21:44)
[2021-06-29] MEDS: Insulin Aspart 300 UNITS/3 ML PEN SC (22:58)
[2021-06-29 23:04] LABS: HGB 12.5 g/dL (13.5-17.5)
[2021-06-30] VITALS (15 sets, daily range): BP systolic 158–171; BP diastolic 93–107; PULSE 64–132; RESP 16–23; TEMP 36.2–36.7; O2SAT 98
[2021-06-30] MEDS: Sucralfate 1 GM TAB PO ×3 (00:41→12:22)
[2021-06-30 06:38] LABS: Lactate 0.8 mmol/L (0.6-1.4)
[2021-06-30 07:12] LABS: Magnesium 1.3 mg/dL (1.8-2.4); PHOSPHORUS 2.9 mg/dL (2.6-4.7)
[2021-06-30 07:18] LABS: ALT 162 U/L (16-63); AST 347 U/L (15-37); Albumin 3.1 g/dL (3.4-5.0); Alkaline Phosphatase 177 U/L (46-116); Anion Gap 9.3 mmol/L (3-11); BUN 9 mg/dL (7-18); Bilirubin, Total 4.1 mg/dL (0.2-1.0); CO2 25.7 mmol/L (21.0-32.0); CREATININE 0.8 mg/dL (0.70-1.30); Calcium 8.4 mg/dL (8.5-10.1); Chloride 98 mmol/L (98-107); Glucose 139 mg/dL (74-106); Potassium 4.3 mmol/L (3.5-5.1); Sodium 133 mmol/L (136-145); Total Protein 6.8 g/dL (6.4-8.2)
[2021-06-30] MEDS: Normal Saline Flush 10 ML SYR (09:30)
[2021-06-30] MEDS: Pantoprazole 40 MG VIAL IVP (09:31)
[2021-06-30] MEDS: LORazepam 1 MG TAB PO (09:31)
[2021-06-30] MEDS: Insulin Aspart 300 UNITS/3 ML PEN SC ×2 (09:31→12:23)
[2021-06-30] MEDS: Insulin Glargine 300 UNITS/3 ML PEN 22 UNITS SC (09:31)
[2021-06-30] MEDS: MAGNESIUM SULFATE 4 GM/100 ML BAG IVPB (11:34)
[2021-06-30] MEDS: Nicotine 4 MG LOZG SUC (12:22)
--- NOTE | 2021-06-30 16:13 | W.PM.DS.N ---
Date of service: 06/30/21 Time of Service: 16:13 DS: Diagnosis Discharge Diagnosis (1) DKA, type 1: Status: Acute Asessment and Plan: Patient presented with 3 days of anorexia and vomiting. His blood sugars were elevated into the 300s. He has 100+ ketones in his urine. His anion gap was 28.5. He was on insulin infusion overnight with resolution of his symptoms and improvement in his aniion gap. By the time of discharge she was taking p.o. well and anxious to leave. (2) Lactic acidosis: Status: Acute Asessment and Plan: Presumed secondary to DKA. (3) MILADY (acute kidney injury): Status: Acute Asessment and Plan: Transient. His creatinine at the time of discharge was 0.8. (4) Dehydration: Status: Acute Asessment and Plan: He received copious IV fluids during this admission. Dehydration resolved. Discharge Plan Disposition Patient Disposition: HOME Condition: Improving Discharge Details Reason For Visit: Hematemesis Admit Date/Time: 06/29/21 06:18 Admit Provider: Tony Arita Attending Provider: Tony Arita Primary Care Provider: Tony Connors Hospital Course Hospital Course: 31-year-old man with underlying diabetes, delayed gastric emptying, chronic hepatitis C presents with hematemesis. He had some transient low blood pressures that improved with IV fluids. He had not been eating for the past 2 to 3 days because of his stomach problems. On admission his lactate was elevated at 9 his ketones were 100 potassium 3.6. His anion gap was 28.5 and resolved to 8.2 by the time of discharge. Blood sugars were high and he was placed on insulin infusion overnight but has been switched back to basal bolus insulin. He has had some extreme anxiety and required lorazepam to help. He is anxious to leave. Home Meds and New Rx's Prescriptions: Continued Lantus U-100 Insulin 100 unit/mL Solution 24 unit SUBCUT DAILY RF: 0 Lantus U-100 Insulin 100 unit/mL Solution 24 unit SUBCUT DAILY RF: 0 insulin aspart U-100 [Novolog U-100 Insulin aspart] 100 unit/mL Solution 1 sliding scale dose SUBCUT USEASDIRECTD RF: 0 gabapentin 600 mg Tablet 600 mg PO TID RF: 0 buprenorphine-naloxone 8-2 mg Tablet, Sublingual 1 tab SUBLINGUAL DAILY RF: 0 cholecalciferol (vitamin D3) [Vitamin D3] 25 mcg (1,000 unit) Tablet 1,000 mcg PO DAILY RF: 0 omeprazole 20 mg Tablet,Delayed Release (Dr/Ec) 20 mg PO DAILY RF: 0 metoclopramide HCl [Reglan] 10 mg tablet 10 mg PO Q6H PRN (Reason: nausea and vomiting) Qty: 10 RF: 0 Discharge Instructions Instructions: Diabetic Ketoacidosis (DC) Activity:: Activity as Tolerated Equipment/Supplies:: No Equipment Needed Diet:: Carb Counting Discharge Orders Discharge Orders: Discharge Order (Routine); Ordered 06/30/21 Ordered By: Tony Arita DS: Summary Time Spent with Patient providing and/or coordinating discharge services: Greater than 30 minutes Status at Discharge Functional status at discharge: independent ambulation Overall status at discharge: patient is back to baseline Mental Status: mental status grossly normal Speech and Movement: speech and movement normal Mood: anxious mood Affect: anxious affect Exam Narrative Exam Narrative: On exam he is a very anxious appearing man. He has no respiratory difficulty. He is moving around in the room without any difficulty. He was observed eating regular meals without any swallowing difficulty in no apparent nausea or vomiting. Psych Mental Status: mental status grossly normal Speech and Movement: speech and movement normal Mood: anxious mood Affect: anxious affect DS: Data Vitals/I&O Vitals and I&O: Vital Signs Temperature 36.2 C L 06/30/21 09:03 Temperature Source Temporal Artery Scan 06/30/21 09:03 Pulse 103 H 06/30/21 08:56 Pulse 109 H 06/30/21 08:56 Respiratory Rate 06/30/21 08:56 Respiratory Effort Non-Labored 06/30/21 09:03 Respiratory Depth Normal 06/30/21 09:03 Respiratory Pattern Normal 06/30/21 09:03 Blood Pressure 171/107 H 06/30/21 08:56 Blood Pressure Mean 121 06/30/21 08:56 Blood Pressure Position Left Lateral 06/30/21 04:00 Pulse Oximetry 98 06/30/21 04:08 Oxygen Delivery Method Room Air 06/30/21 04:00 Oxygen Flow Rate 0 06/30/21 04:00 Pain Level 0 06/30/21 09:03 Intake & Output 06/29/21 06/30/21 06/30/21 23:59 11:59 23:59 Intake Total 3646.417 / 5904.417 80.5 / 320.5 240 / 320.5 Output Total 250 / 600 1150 / 1150 Balance 3396.417 / 5304.417 -1069.5 / -829.5 240 / -829.5 Intake: IV 2406.417 / 4544.417 80.5 / 80.5 Oral 1240 / 1360 240 / 240 Output: Urine 250 / 600 1150 / 1150 Other: Urine Color Light Loretta Light Loretta Urine Appearance Clear Clear Urine Odor Normal Comment Voiding independently in urinal. Voiding independently in urinal. Voiding Methods Urinal Urinal Data Completed and Pending Labs on day of discharge: Labs from last 24 hours 06/30/21 06/30/21 06/30/21 06:30 06:30 06:30 WBC RBC Hgb Hct MCV MCH MCHC RDW Plt Count MPV Immature Gran % Neutrophils % Lymphocytes % Monocytes % Eosinophils % Basophils % Absolute Neutrophils Absolute Lymphocytes Absolute Monocytes Absolute Eosinophils Absolute Basophils VBG Lactate 0.8 Sodium 133 L Potassium 4.3 Chloride 98 Carbon Dioxide 25.7 Anion Gap 9.3 BUN 9 Creatinine 0.8 Estimated GFR/1.73 m2 >= 60.00 Glucose 139 H Hemoglobin A1c Calcium 8.4 L Phosphorus 2.9 Magnesium 1.3 L Total Bilirubin 4.1 H AST 347 H ALT 162 H Alkaline Phosphatase 177 H Total Protein 6.8 Albumin 3.1 L 06/30/21 06/30/21 06/29/21 05:35 05:35 22:45 WBC Pending RBC Pending Hgb Pending 12.5 L Hct Pending 36.0 L MCV Pending MCH Pending MCHC Pending RDW Pending Plt Count Pending MPV Pending Immature Gran % Pending Neutrophils % Pending Lymphocytes % Pending Monocytes % Pending Eosinophils % Pending Basophils % Pending Absolute Neutrophils Pending Absolute Lymphocytes Pending Absolute Monocytes Pending Absolute Eosinophils Pending Absolute Basophils Pending VBG Lactate Sodium Potassium Chloride Carbon Dioxide Anion Gap BUN Creatinine Estimated GFR/1.73 m2 Glucose Hemoglobin A1c Pending Calcium Phosphorus Magnesium Total Bilirubin AST ALT Alkaline Phosphatase Total Protein Albumin 06/29/21 06/29/21 06/29/21 21:00 19:45 19:45 WBC RBC Hgb 12.0 L Hct 35.1 L MCV MCH MCHC RDW Plt Count MPV Immature Gran % Neutrophils % Lymphocytes % Monocytes % Eosinophils % Basophils % Absolute Neutrophils Absolute Lymphocytes Absolute Monocytes Absolute Eosinophils Absolute Basophils VBG Lactate Sodium Cancelled 135 L Potassium Cancelled 4.1 Chloride Cancelled 100 Carbon Dioxide Cancelled 24.6 Anion Gap Cancelled 10.4 BUN Cancelled 11 Creatinine Cancelled 1.0 Estimated GFR/1.73 m2 Cancelled >= 60.00 Glucose Cancelled 65 L D Hemoglobin A1c Calcium Cancelled 8.1 L Phosphorus Magnesium Total Bilirubin AST ALT Alkaline Phosphatase Total Protein Albumin 06/29/21 06/29/21 17:40 15:35 WBC RBC Hgb Hct MCV MCH MCHC RDW Plt Count MPV Immature Gran % Neutrophils % Lymphocytes % Monocytes % Eosinophils % Basophils % Absolute Neutrophils Absolute Lymphocytes Absolute Monocytes Absolute Eosinophils Absolute Basophils VBG Lactate Sodium 133 L 137 Potassium 3.9 3.6 Chloride 99 99 Carbon Dioxide 25.8 26.1 Anion Gap 8.2 11.9 H BUN 12 14 Creatinine 0.9 1.0 Estimated GFR/1.73 m2 >= 60.00 >= 60.00 Glucose 135 H 154 H Hemoglobin A1c Calcium 8.0 L 8.1 L Phosphorus Magnesium Total Bilirubin AST ALT Alkaline Phosphatase Total Protein Albumin PFSH All Active Problems DKA, type 1 (Acute) History of drug abuse in remission (Acute) Metabolic alkalosis (Acute) Metabolic acidosis (Acute) Hepatitis (Acute) Lactic acidosis (Acute) MILADY (acute kidney injury) (Acute) Dehydration (Acute) Hepatitis C antibody positive in blood (Acute) Vomiting (Acute) Medical History DKA (diabetic ketoacidosis) Narcotic abuse in remission Type I diabetes mellitus Surgical History No significant past surgical history Social History Smoking/Tobacco Use Status: Current every day Tobacco Type: smokeless tobacco Tobacco: How many years used: 20 Smoking risk assessment performed?: Yes Alcohol Intake: former Drug use: Never Substance use type: does not use Details: pt states he chews. Pt states he chews a tin a day Do you feel safe at home: Yes Do you feel safe in your relationship?: Yes
== END 2021-06-30 16:20 | disposition home or self-care (01) | DRG 682 ==
LOC: ER 07:56 → ICU 08:35
PROVIDERS: Family Medicine; Internal Medicine; Student in an Organized Health Care Education/Training Program; Admitting Provider Family Medicine; Emergency Provider Student in an Organized Health Care Education/Training Program; PCP Internal Medicine; Visit Provider Family Medicine
DX: N17.9 Acute kidney failure, unspecified (principal); E10.10 Type 1 diabetes mellitus with ketoacidosis without coma; E87.3 Alkalosis; F19.11 Other psychoactive substance abuse, in remission; B19.20 Unspecified viral hepatitis C without hepatic coma; R11.2 Nausea with vomiting, unspecified; K30 Functional dyspepsia; E86.0 Dehydration; F17.290 Nicotine dependence, other tobacco product, uncomplicated
CPT/HCPCS: 36415; 74177; 80048; 80053; 82805; 83690; 87635; 96361; 96365; 96366; 96375; 96376; 99285; 71260; 80320; 83036; 83605; 83735; 84100; 85014; 85018; 85025; 85610; 85730; 99239; 99291; 99356; 99357; J2405; J2765; J3475; J3480; J3490

== ENCOUNTER 2021-07-09 13:14 | Emergency (ER) | payer OTHER, SELFPAY ==
[2021-07-09] VITALS (42 sets, daily range): BP systolic 147–188; BP diastolic 77–98; PULSE 73–146; RESP 14–22; TEMP 36–36.6; O2SAT 96–100
--- NOTE | 2021-07-09 14:15 | RT.EKG_ITS ---
APPROVED REPORT Exam: Resting ECG Reason for Exam: tachycardia Patient Location: E HR:106 bpm ECG Measurements Heart Rate 106 AXIS NE 161 P 69 QRSd 95 QRS 28 QT 348 T 27 QTc 462 Conclusion Sinus tachycardia...rate> 99. Sinus. No STEMI. I have reviewed and interpreted ECG and agree with software generated interpretation.
[2021-07-09 14:17] LABS: BE (Venous) 4 mmol/L (-2-3); HCO3 (Venous) 29 mmol/L (23-28); O2 Sat (Venous) 46 %; TCO2 (Venous) 25 mmol/L (24-29); pCO2 (Venous) 46 mmHg (41-51); pH (Venous) 7.41 (7.31-7.41); pO2 (Venous) 25 mmHg
[2021-07-09 14:21] LABS: Abs Immature Grans 0.03 10^3/uL (0.0-0.06); Absolute Basophil Count 0.01 10^3/uL (0.0-0.2); Absolute Lymphocyte Count 0.97 10^3/uL (1.2-3.4); Absolute Monocyte Count 0.58 10^3/uL (0.1-0.8); Absolute Neutrophil Count 5.85 10^3/uL (1.2-6.7); Basophils % 0.1; HCT 44.7 % (40.0-50.0); HGB 15.1 g/dL (13.5-17.5); Immature Grans % 0.4; MCH 31.9 pg (27.0-33.0); MCHC 33.8 % (32.0-36.0); MCV 94.5 fL (80-95); MPV 8.9 fL (8.0-11.0); Monocytes % 7.8; Neutrophils % 78.7; Nucleated RBC 0 %; Platelet Count 373 10^3/uL (130-400); RBC 4.73 10^6/uL (4.36-5.78); RDW-SD 52.8 fL; WBC 7.44 10^3/uL (4.4-10.8)
[2021-07-09] MEDS: Normal Saline 1,000 ML 1000 ML IV ×2 (14:22→16:31)
[2021-07-09] MEDS: Ondansetron 4 MG/2 ML VIAL IVP ×2 (14:22→16:31)
[2021-07-09 14:34] LABS: ALT 224 U/L (16-63); AST 274 U/L (15-37); Albumin 4.2 g/dL (3.4-5.0); Alkaline Phosphatase 178 U/L (46-116); Anion Gap 15.5 mmol/L (3-11); BUN 17 mg/dL (7-18); CO2 26.5 mmol/L (21.0-32.0); Calcium 9.6 mg/dL (8.5-10.1); Chloride 97 mmol/L (98-107); Glucose 234 mg/dL (74-106); Magnesium 1.6 mg/dL (1.8-2.4); Potassium 3.9 mmol/L (3.5-5.1); Sodium 139 mmol/L (136-145); Troponin I < 50 ng/L (<or=60)
[2021-07-09 14:37] LABS: Source Nasal/Nares
[2021-07-09] MEDS: LORazepam 2 MG/ML VIAL 1 MG IVP (14:37)
--- NOTE | 2021-07-09 15:06 | ED.GENADUL_ITS ---
Discharge Plan Disposition Patient Disposition: HOME Condition: Improving Discharge Details Clinical Impression: Nausea and vomiting, Hyperglycemia Primary Care Provider: Tony Connors ED Provider: Micaela Young Home Meds and New Rx's Prescriptions: Continued Lantus U-100 Insulin 100 unit/mL Solution 24 unit SUBCUT DAILY 0RF insulin aspart U-100 [Novolog U-100 Insulin aspart] 100 unit/mL Solution 1 sliding scale dose SUBCUT USEASDIRECTD 0RF gabapentin 600 mg Tablet 600 mg PO TID 0RF buprenorphine-naloxone 8-2 mg Tablet, Sublingual 1 tab SUBLINGUAL DAILY 0RF cholecalciferol (vitamin D3) [Vitamin D3] 25 mcg (1,000 unit) Tablet 1,000 mcg PO DAILY 0RF omeprazole 20 mg Tablet,Delayed Release (Dr/Ec) 20 mg PO DAILY 0RF metoclopramide HCl [Reglan] 10 mg tablet 10 mg PO Q6H PRN (Reason: nausea and vomiting) Qty: 10 0RF Discharge Instructions Instructions: Acute Nausea and Vomiting (ED), Diabetic Hyperglycemia (ED) Additional Instructions: Drink plenty of fluids and get plenty of rest. Take the Zofran as needed and directed for nausea and vomiting. Follow-up with your primary care doctor in 1 week. Return to the emergency department with any worsening or new concerning symptoms such as persistent vomiting, persistently elevated blood sugar or any other concerns. 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 Patient was admitted here last week for DKA. Sugars have been 150s at home. Fingerstick glucose 224. Patient appears significantly anxious but nontoxic. Blood pressure hypertensive on arrival, heart rate initially normal but somewhat tachycardic upon my evaluation. Differential diagnosis includes acute viral illness, DKA, electrolyte abnormality, dehydration, UTI. Will place an IV, bolus IV fluids, screening labs, urinalysis, VBG and give fluids, Zofran and Ativan and reassess. Labs reviewed. Normal white blood cell count. Glucose 234. Normal bicarb. Anion gap 15. VBG noted a normal pH and bicarb. He has chronic transaminitis and hyperbilirubinemia which does not appear significantly different. COVID flu and RSV negative. Troponin negative. Work-up does not appear consistent with DKA. Urine sample not yet obtained. Will repeat fingerstick glucose. Fingerstick glucose 225. Will give another liter of IV fluids and reassess. Fingerstick glucose 173. Patient feels much better and was able to eat and drink without any further nausea and vomiting. Patient would like to go home. Recheck BMP noted near normalization of anion gap. Patient advised to increase fluids and rest. Advised to restart his usual diabetic medication regimen once he is eating normally. Advised to return here immediately with any worsening or new concerning symptoms. Medical Records Medical records reviewed: Yes I reviewed the patient's medical records. Lab Data Labs: Laboratory Tests Range/Units 07/09/21 07/09/21 07/09/21 13:55 13:55 13:55 WBC (4.4-10.8) 10^3/uL 7.44 RBC (4.36-5.78) 10^6/uL 4.73 Hgb (13.5-17.5) g/dL 15.1 Hct (40.0-50.0) % 44.7 MCV (80-95) fL 94.5 MCH (27.0-33.0) pg 31.9 MCHC (32.0-36.0) % 33.8 RDW (11.8-14.1) % 15.0 H Plt Count (130-400) 10^3/uL 373 D MPV (8.0-11.0) fL 8.9 Immature Gran % 0.4 Neutrophils % 78.7 Lymphocytes % 13.0 Monocytes % 7.8 Eosinophils % 0.0 Basophils % 0.1 Nucleated RBC % % 0 Absolute Neutrophils (1.2-6.7) 10^3/uL 5.85 Absolute Lymphocytes (1.2-3.4) 10^3/uL 0.97 L Absolute Monocytes (0.1-0.8) 10^3/uL 0.58 Absolute Eosinophils (0.0-0.7) 10^3/uL 0.00 Absolute Basophils (0.0-0.2) 10^3/uL 0.01 VBG pH (7.31-7.41) 7.41 VBG pCO2 (41-51) mmHg 46 VBG pO2 mmHg 25 VBG HCO3 (23-28) mmol/L 29 H VBG Total CO2 (24-29) mmol/L 25 VBG O2 Saturation % 46 VBG Base Excess (-2-3) mmol/L 4 H Sodium (136-145) mmol/L 139 Potassium (3.5-5.1) mmol/L 3.9 Chloride (98-107) mmol/L 97 L Carbon Dioxide (21.0-32.0) mmol/L 26.5 Anion Gap (3-11) mmol/L 15.5 H BUN (7-18) mg/dL 17 Creatinine (0.70-1.30) mg/dL 1.0 Estimated GFR/1.73 m2 (mL/min/1.73m2) >= 60.00 Glucose (74-106) mg/dL 234 H Calcium (8.5-10.1) mg/dL 9.6 Magnesium (1.8-2.4) mg/dL 1.6 L Total Bilirubin (0.2-1.0) mg/dL 4.0 H AST (15-37) U/L 274 H ALT (16-63) U/L 224 H Alkaline Phosphatase (46-116) U/L 178 H Troponin I (<or=60) ng/L < 50 Total Protein (6.4-8.2) g/dL 9.0 H Albumin (3.4-5.0) g/dL 4.2 Urine Color (Yellow) Urine Clarity (Clear) Urine pH (5-8) Ur Specific [place] (1.005-1.025) Urine Protein (Negative) mg/dL Urine Ketones (Negative) mg/dL Urine Blood (Negative) Urine Nitrite (Negative) Urine Bilirubin (Negative) Urine Urobilinogen (Up TO 0.2) EU/dL Ur Leukocyte Esterase (Negative) Urine RBC (0-2) HPF Urine WBC (0-5) HPF Ur Epithelial Cells (Negative) HPF Urine Crystals (Negative) HPF Urine Bacteria (Negative) HPF Urine Mucus (Negative) Urine Other (Negative) Ur Culture Indicated? Urine Glucose (Negative) mg/dL COVID-19 Source SARS-CoV-2 (PCR) (Negative) Influenza Type A (PCR) (Negative) Influenza Type B (PCR) (Negative) RSV (PCR) (Negative) Range/Units 07/09/21 07/09/21 07/09/21 14:33 16:12 18:30 WBC (4.4-10.8) 10^3/uL RBC (4.36-5.78) 10^6/uL Hgb (13.5-17.5) g/dL Hct (40.0-50.0) % MCV (80-95) fL MCH (27.0-33.0) pg MCHC (32.0-36.0) % RDW (11.8-14.1) % Plt Count (130-400) 10^3/uL MPV (8.0-11.0) fL Immature Gran % Neutrophils % Lymphocytes % Monocytes % Eosinophils % Basophils % Nucleated RBC % % Absolute Neutrophils (1.2-6.7) 10^3/uL Absolute Lymphocytes (1.2-3.4) 10^3/uL Absolute Monocytes (0.1-0.8) 10^3/uL Absolute Eosinophils (0.0-0.7) 10^3/uL Absolute Basophils (0.0-0.2) 10^3/uL VBG pH (7.31-7.41) VBG pCO2 (41-51) mmHg VBG pO2 mmHg VBG HCO3 (23-28) mmol/L VBG Total CO2 (24-29) mmol/L VBG O2 Saturation % VBG Base Excess (-2-3) mmol/L Sodium (136-145) mmol/L 135 L Potassium (3.5-5.1) mmol/L 4.3 Chloride (98-107) mmol/L 99 Carbon Dioxide (21.0-32.0) mmol/L 24.3 Anion Gap (3-11) mmol/L 11.7 H BUN (7-18) mg/dL 15 Creatinine (0.70-1.30) mg/dL 0.9 Estimated GFR/1.73 m2 (mL/min/1.73m2) >= 60.00 Glucose (74-106) mg/dL 195 H Calcium (8.5-10.1) mg/dL 8.3 L Magnesium (1.8-2.4) mg/dL Total Bilirubin (0.2-1.0) mg/dL AST (15-37) U/L ALT (16-63) U/L Alkaline Phosphatase (46-116) U/L Troponin I (<or=60) ng/L Total Protein (6.4-8.2) g/dL Albumin (3.4-5.0) g/dL Urine Color (Yellow) [place] Urine Clarity (Clear) Clear Urine pH (5-8) 5.5 Ur Specific [place] (1.005-1.025) >= 1.030 H Urine Protein (Negative) mg/dL 30 H Urine Ketones (Negative) mg/dL >=160 H Urine Blood (Negative) Negative Urine Nitrite (Negative) Urine Bilirubin (Negative) Moderate H Urine Urobilinogen (Up TO 0.2) EU/dL 1.0 H Ur Leukocyte Esterase (Negative) Negative Urine RBC (0-2) HPF 0-2 Urine WBC (0-5) HPF 0-2 Ur Epithelial Cells (Negative) HPF Negative Urine Crystals (Negative) HPF Negative Urine Bacteria (Negative) HPF Negative Urine Mucus (Negative) Heavy Urine Other (Negative) Few [place] Ur Culture Indicated? No Urine Glucose (Negative) mg/dL 500 H COVID-19 Source Nasal/Nares SARS-CoV-2 (PCR) (Negative) Negative Influenza Type A (PCR) (Negative) Negative Influenza Type B (PCR) (Negative) Negative RSV (PCR) (Negative) Negative ECG Data Attestation: I personally reviewed and interpreted this ECG (s) as follows: Interpretation: Rate of 106, sinus, no STEMI nondiagnostic. HPI General Mode of arrival: ambulatory . Date/Time Provider Initiated Documentation: 07/09/21 13:35 . Limitations to Documentation: no limitations . Information obtained by: patient . HPI Narrative: Pt is a 31yo M with a history of type 1 diabetes, hepatitis C, DKA who presents to the ED w/ a c/o vomiting for the past 2 days. Patient states the vomit has mainly been clear and white. He states his symptoms do feel similar to when he had DKA recently but states his sugars have been normal for the past few days. States his sugar today was 150. He states he took 22 units of his Lantus this morning but has not taken his NovoLog because he has not eaten for the past 2 days. He denies any new medications, recent illness, recent known sick contacts, fever, chest pain, coughing, abdominal pain, diarrhea or urinary symptoms. Related Data Home Medications Medication Instructions Recorded Confirmed insulin aspart U-100 100 unit/mL 1 sliding scale dose SUBCUT 08/25/20 02/13/22 subcutaneous solution (Novolog USEASDIRECTD U-100 Insulin aspart) insulin glargine 100 unit/mL 24 unit SUBCUT DAILY 01/19/20 07/09/21 subcutaneous solution (Lantus U-100 Insulin) buprenorphine 8 mg-naloxone 2 mg 1 tab SUBLINGUAL DAILY 04/20/21 07/09/21 sublingual tablet cholecalciferol (vitamin D3) 25 1,000 mcg PO DAILY 04/20/21 07/09/21 mcg (1,000 unit) tablet (Vitamin D3) gabapentin 600 mg tablet 600 mg PO TID 04/20/21 07/09/21 omeprazole 20 mg tablet,delayed 20 mg PO DAILY 04/20/21 07/09/21 release metoclopramide HCl 10 mg tablet 10 mg PO Q6H PRN #10 tab 05/15/21 07/09/21 (Reglan) Previous Rx's Medication Instructions Recorded metoclopramide HCl 10 mg tablet 10 mg PO Q6H PRN #10 tab 05/15/21 (Reglan) Allergies Allergy/AdvReac Type Severity Reaction Status Date / Time No Known Allergies Allergy Unverified 07/09/21 14:04 General Stated Complaint: Nausea/Vomit/Diar TOR: 3 Review of Systems All systems reviewed & are unremarkable except as noted in HPI and below Constitutional Constitutional: Reports as per HPI, Denies chills, Denies excessive sweating, Denies fatigue and Denies fever(s) Eyes Eyes: Denies blurry vision ENT Ears, Nose, Mouth, and Throat: Denies dizziness, Denies sore throat and Denies throat swelling Cardiovascular Cardiovascular: Denies chest pain and Denies dyspnea Respiratory Respiratory: Denies cough and Denies dyspnea Gastrointestinal Gastrointestinal: Denies abdominal pain, Denies diarrhea, Reports nausea and Reports vomiting Genitourinary Genitourinary: Denies hematuria and Denies dysuria Musculoskeletal Musculoskeletal: Denies back pain and Denies numbness Integumentary/Breasts Skin/Breast: Denies lesions and Denies rash Neurologic Neurologic: Denies behavioral changes, Denies confusion, Denies dizziness, Denies localized weakness and Denies numbness Psychiatric Psychiatric: Denies behavioral changes, Denies confusion and Denies depression Endocrine Endocrine: Denies excessive sweating and Denies fatigue Hematologic/Lymphatic Hematologic/Lymphatic: Denies easy bruising and Denies lymphadenopathy Allergic/Immunologic Allergic/Immunologic: Denies throat swelling PFSH All Active Problems (Updated 07/09/21 @ 18:25 by Micaela Young DO) Nausea and vomiting (Acute) Hyperglycemia (Acute) Medical History DKA (diabetic ketoacidosis) Narcotic abuse in remission Type I diabetes mellitus Surgical History No significant past surgical history Social History Smoking/Tobacco Use Status: Current every day Tobacco Type: smokeless tobacco Tobacco: How many years used: 20 Smoking risk assessment performed?: Yes Alcohol Intake: former Drug use: Daily Substance use type: marijuana Details: pt states he chews. Pt states he chews a tin a day Do you feel safe at home: Yes Do you feel safe in your relationship?: Yes Exam Const General: cooperative, anxious and ill appearing chronically Nutritional Appearance: thin Orientation: alert, awake and oriented x3 HENMT Head: normal to inspection Ears: hearing grossly normal bilaterally and external ears normal General nose exam: external nose normal Face and sinus: normal facial exam Eyes General: appearance normal, both eyes and all related structures Eyelids: eyelids normal EOM: EOM intact bilaterally Resp Effort & Inspection: normal respiratory effort and able to speak in complete sentences Auscultation: clear to auscultation bilaterally Cardio Rate: tachycardic Rhythm: regular rhythm GI Inspection: normal to inspection Palpation: soft, not firm, no guarding, no hepatosplenomegaly, no masses and nontender Auscultation: normal bowel sounds Back/Spine/Pelvis Back: no CVA tenderness Skin General skin exam: no rashes or lesions noted Neuro General: patient alert, patient awake and patient oriented x3 Cognition: normal cognition Speech: speech normal Gait: normal gait Motor: muscle tone normal throughout Sensory Exam: no sensory deficits noted Extrem General: normal to inspection, full ROM and capillary refill normal Psych Appearance: grossly normal Mental Status: mental status grossly normal Speech and Movement: speech and movement normal Affect: normal affect Thought Process: normal Course Vital Signs Vital signs: Vital Signs Temperature 96.8 F L 07/09/21 13:30 Pulse 88 02/13/22 13:30 Respiratory Rate 14 07/09/21 13:30 Blood Pressure 188/98 H 07/09/21 13:30 Pulse Oximetry 100 07/09/21 13:30 Temperature 96.8 F L 07/09/21 13:30 Temperature Source Temporal Artery Scan 07/09/21 13:30 Pulse 88 07/09/21 13:30 Respiratory Rate 14 07/09/21 13:30 Respiratory Effort Non-Labored 07/09/21 13:32 Blood Pressure 188/98 H 07/09/21 13:30 Blood Pressure Position Sitting 07/09/21 13:30 Pulse Oximetry 100 07/09/21 13:30 Oxygen Delivery Method Room Air 07/09/21 13:30 Oxygen Flow Rate 0 07/09/21 13:30 Pain Level 0 07/09/21 13:30 Lab/Test Results Lab/Test Results: Laboratory Tests Range/Units 07/09/21 07/09/21 07/09/21 13:55 13:55 13:55 WBC (4.4-10.8) 10^3/uL 7.44 RBC (4.36-5.78) 10^6/uL 4.73 Hgb (13.5-17.5) g/dL 15.1 Hct (40.0-50.0) % 44.7 MCV (80-95) fL 94.5 MCH (27.0-33.0) pg 31.9 MCHC (32.0-36.0) % 33.8 RDW (11.8-14.1) % 15.0 H Plt Count (130-400) 10^3/uL 373 D MPV (8.0-11.0) fL 8.9 Immature Gran % 0.4 Neutrophils % 78.7 Lymphocytes % 13.0 Monocytes % 7.8 Eosinophils % 0.0 Basophils % 0.1 Nucleated RBC % % 0 Absolute Neutrophils (1.2-6.7) 10^3/uL 5.85 Absolute Lymphocytes (1.2-3.4) 10^3/uL 0.97 L Absolute Monocytes (0.1-0.8) 10^3/uL 0.58 Absolute Eosinophils (0.0-0.7) 10^3/uL 0.00 Absolute Basophils (0.0-0.2) 10^3/uL 0.01 VBG pH (7.31-7.41) 7.41 VBG pCO2 (41-51) mmHg 46 VBG pO2 mmHg 25 VBG HCO3 (23-28) mmol/L 29 H VBG Total CO2 (24-29) mmol/L 25 VBG O2 Saturation % 46 VBG Base Excess (-2-3) mmol/L 4 H Sodium (136-145) mmol/L 139 Potassium (3.5-5.1) mmol/L 3.9 Chloride (98-107) mmol/L 97 L Carbon Dioxide (21.0-32.0) mmol/L 26.5 Anion Gap (3-11) mmol/L 15.5 H BUN (7-18) mg/dL 17 Creatinine (0.70-1.30) mg/dL 1.0 Estimated GFR/1.73 m2 (mL/min/1.73m2) >= 60.00 Glucose (74-106) mg/dL 234 H Calcium (8.5-10.1) mg/dL 9.6 Magnesium (1.8-2.4) mg/dL 1.6 L Total Bilirubin (0.2-1.0) mg/dL 4.0 H AST (15-37) U/L 274 H ALT (16-63) U/L 224 H Alkaline Phosphatase (46-116) U/L 178 H Troponin I (<or=60) ng/L < 50 Total Protein (6.4-8.2) g/dL 9.0 H Albumin (3.4-5.0) g/dL 4.2 COVID-19 Source Range/Units 07/09/21 14:33 WBC (4.4-10.8) 10^3/uL RBC (4.36-5.78) 10^6/uL Hgb (13.5-17.5) g/dL Hct (40.0-50.0) % MCV (80-95) fL MCH (27.0-33.0) pg MCHC (32.0-36.0) % RDW (11.8-14.1) % Plt Count (130-400) 10^3/uL MPV (8.0-11.0) fL Immature Gran % Neutrophils % Lymphocytes % Monocytes % Eosinophils % Basophils % Nucleated RBC % % Absolute Neutrophils (1.2-6.7) 10^3/uL Absolute Lymphocytes (1.2-3.4) 10^3/uL Absolute Monocytes (0.1-0.8) 10^3/uL Absolute Eosinophils (0.0-0.7) 10^3/uL Absolute Basophils (0.0-0.2) 10^3/uL VBG pH (7.31-7.41) VBG pCO2 (41-51) mmHg VBG pO2 mmHg VBG HCO3 (23-28) mmol/L VBG Total CO2 (24-29) mmol/L VBG O2 Saturation % VBG Base Excess (-2-3) mmol/L Sodium (136-145) mmol/L Potassium (3.5-5.1) mmol/L Chloride (98-107) mmol/L Carbon Dioxide (21.0-32.0) mmol/L Anion Gap (3-11) mmol/L BUN (7-18) mg/dL Creatinine (0.70-1.30) mg/dL Estimated GFR/1.73 m2 (mL/min/1.73m2) Glucose (74-106) mg/dL Calcium (8.5-10.1) mg/dL Magnesium (1.8-2.4) mg/dL Total Bilirubin (0.2-1.0) mg/dL AST (15-37) U/L ALT (16-63) U/L Alkaline Phosphatase (46-116) U/L Troponin I (<or=60) ng/L Total Protein (6.4-8.2) g/dL Albumin (3.4-5.0) g/dL COVID-19 Source Nasal/Nares
[2021-07-09 15:15] LABS: COVID-19 PCR Negative (Negative); Influenza A PCR Negative (Negative); Influenza B PCR Negative (Negative); RSV PCR Negative (Negative)
[2021-07-09 16:13] LABS: Bilirubin Moderate (Negative); Blood Negative (Negative); Clarity Clear (Clear); Ketones >=160 mg/dL (Negative); Leukocyte Esterase Negative (Negative); Specific Gravity >= 1.030 (1.005-1.025); pH 5.5 (5-8)
[2021-07-09 16:14] LABS: Glucose 500 mg/dL (Negative)
[2021-07-09 16:20] LABS: Bacteria Negative HPF (Negative); C & S Indicated? No; Crystals Negative HPF (Negative); Epithelial Cells Negative HPF (Negative); Mucus Heavy (Negative); Other Cells Few Spermatozoa (Negative); RBC 0-2 HPF (0-2); WBC 0-2 HPF (0-5)
[2021-07-09] MEDS: Magnesium Oxide 400 MG TAB PO (18:33)
[2021-07-09] MEDS: Ondansetron O.D.T. 4 MG TABEF, 3 TABS/BTL PO (18:34)
[2021-07-09 18:44] LABS: Anion Gap 11.7 mmol/L (3-11); BUN 15 mg/dL (7-18); CO2 24.3 mmol/L (21.0-32.0); CREATININE 0.9 mg/dL (0.70-1.30); Calcium 8.3 mg/dL (8.5-10.1); Chloride 99 mmol/L (98-107); Glucose 195 mg/dL (74-106); Potassium 4.3 mmol/L (3.5-5.1); Sodium 135 mmol/L (136-145)
== END 2021-07-09 18:40 | disposition home or self-care (01) ==
PROVIDERS: Emergency Provider Physician Assistant; PCP Internal Medicine
DX: R11.2 Nausea with vomiting, unspecified (principal); E10.65 Type 1 diabetes mellitus with hyperglycemia; Z79.4 Long term (current) use of insulin; F17.210 Nicotine dependence, cigarettes, uncomplicated; R00.0 Tachycardia, unspecified
CPT/HCPCS: 36415; 36416; 80048; 80053; 82805; 82962; 87637; 93005; 96361; 96374; 96375; 99284; 81003; 81015; 83735; 84484; 85025; 93010; J2060; J2405

== ENCOUNTER 2021-08-05 11:40 | Emergency (ER) | payer OTHER, SELFPAY ==
[2021-08-05] VITALS (28 sets, daily range): BP systolic 125–173; BP diastolic 58–107; PULSE 64–135; RESP 15–30; TEMP 36.7–37; O2SAT 96–100
--- NOTE | 2021-08-05 11:45 | DI.RAD_ITS ---
Exam(s) XR PORTABLE CHEST AP EXAM: XR PORTABLE CHEST AP CLINICAL HISTORY: DKA. TECHNIQUE: 2D digital imaging was performed. COMPARISON: No exams were available for comparison FINDINGS: Heart size is upper normal. The mediastinum is not widened. Lungs are clear. No infiltrates nor obvious pleural effusions. IMPRESSION: No acute pulmonary findings on this single AP portable view of the chest. DATA REPOSITORY: RADIATION DOSE DELIVERED: All CT scans at this facility use at least one of these dose optimization techniques: automated exposure control; mA and/or kV adjustment per patient size (includes targeted e xams where dose is matched to clinical indication); or iterative reconstruction.
--- NOTE | 2021-08-05 11:54 | W.ED.GENAD ---
Discharge Plan Disposition Patient Disposition: HOME Condition: Stable Discharge Details Clinical Impression: Hyperglycemia, Nausea and vomiting, Dehydration, Elevated LFTs, Hypomagnesemia, Hypokalemia Primary Care Provider: Tony Connors ED Provider: Emelina Thrasher Home Meds and New Rx's Prescriptions: New magnesium 250 mg tablet 250 mg PO DAILY Qty: 7 0RF potassium chloride 10 mEq tablet,ER particles/crystals 10 meq PO DAILY Qty: 5 0RF metoclopramide HCl [Reglan] 10 mg tablet 10 mg PO Q6H PRNQty: 10 0RF Continued Lantus U-100 Insulin 100 unit/mL Solution 24 unit SUBCUT DAILY 0RF insulin aspart U-100 [Novolog U-100 Insulin aspart] 100 unit/mL Solution 1 sliding scale dose SUBCUT USEASDIRECTD 0RF gabapentin 600 mg Tablet 600 mg PO TID 0RF buprenorphine-naloxone 8-2 mg Tablet, Sublingual 1 tab SUBLINGUAL DAILY 0RF cholecalciferol (vitamin D3) [Vitamin D3] 25 mcg (1,000 unit) Tablet 1,000 mcg PO DAILY 0RF omeprazole 20 mg Tablet,Delayed Release (Dr/Ec) 20 mg PO DAILY 0RF metoclopramide HCl [Reglan] 10 mg tablet 10 mg PO Q6H PRN (Reason: nausea and vomiting) Qty: 10 0RF Discharge Instructions Additional Instructions: [place] diet as tolerated Use your insulin after checking your blood sugars at home as instructed Continue to hydrate yourself Have written you for 1 tablet of Ativan as needed for later tonight should your nausea return and Zofran Take the Zofran first, if is not controlled you may take 1 dose of Ativan Take your potassium and magnesium starting tomorrow, these events supplemented today in the emergency department Follow-up with your doctor regarding your liver enzyme and your bilirubin Please return earlier should you have new or worsening COMPLAINTS Discharge Data Discharge Date/Time-TO BE ENTERED AT DEPARTURE: 08/05/21 16:34 Medical Decision Making Please follow-up with your primary care physician and review your labs with them Continue to hydrate yourself this evening Check your blood sugar when you arrive home and treat accordingly Recommend bland diet as tolerated Given you a prescription for Reglan which she may take at home You must give you magnesium with potassium, you can tomorrow Take the Reglan as needed M operating need for a couple of doses of Ativan that you can take symptoms are controlled with Reglan Please return if you are unable, if your blood sugars continue to elevate, or should you have new or worsening complaints Patient received 3 L of LR and 500 and which she tolerated well although he does have greater than 160 ketones in his urine after 2 L of IV hydration His gap has improved His pH is 7.5, there is no evidence of DKA DKA he is feeling symptomatically improved, he does have some persistent tachycardia which looks like it has been present in the past He is able to tolerate both food and fluid and feels comfortable with discharge home intact is requesting discharge home at this time and I do not think this is unreasonable Return precautions discussed and patient expressed understanding pt will need GI follow-up regarding his LFTs and bili Medical Records Medical records reviewed: Yes I reviewed the patient's medical records. Lab Data Lab results reviewed: Yes I reviewed the patient's lab results. ECG Data Prior ECG tracings: available for review HPI General Date/Time Provider Initiated Documentation: 08/05/21 11:40. HPI Narrative: This 31-year-old male presents with report of insulin-dependent diabetes,, history of IV drug abuse presents with nausea, vomiting for the past several days. States has been been recurrent over the past several months. Denies any current alcohol use or illegal substance abuse. Denies any pain or shortness of breath. Denies any fever or chills. Denies any blood in his vomitus. States this episode is similar to previous. Has used his insulin prior to arrival. Denies any diarrhea. Denies any abdominal pain. Denies any known sick contacts. Denies cough or fever. Using insulin as prescribed Related Data Home Medications Medication Instructions Recorded Confirmed insulin aspart U-100 100 unit/mL 1 sliding scale dose SUBCUT 01/19/20 08/05/21 subcutaneous solution (Novolog USEASDIRECTD U-100 Insulin aspart) insulin glargine 100 unit/mL 24 unit SUBCUT DAILY 01/19/20 08/05/21 subcutaneous solution (Lantus U-100 Insulin) buprenorphine 8 mg-naloxone 2 mg 1 tab SUBLINGUAL DAILY 04/20/21 08/05/21 sublingual tablet cholecalciferol (vitamin D3) 25 1,000 mcg PO DAILY 04/20/21 08/05/21 mcg (1,000 unit) tablet (Vitamin D3) gabapentin 600 mg tablet 600 mg PO TID 04/20/21 08/05/21 omeprazole 20 mg tablet,delayed 20 mg PO DAILY 04/20/21 08/05/21 release metoclopramide HCl 10 mg tablet 10 mg PO Q6H PRN #10 tab 05/15/21 08/05/21 (Reglan) magnesium 250 mg tablet 250 mg PO DAILY #7 tab 08/05/21 metoclopramide HCl 10 mg tablet 10 mg PO Q6H PRN #10 tab 08/05/21 (Reglan) potassium chloride 10 mEq 10 meq PO DAILY #5 tab 08/05/21 tablet,extended release(part/cryst) Previous Rx's Medication Instructions Recorded metoclopramide HCl 10 mg tablet 10 mg PO Q6H PRN #10 tab 05/15/21 (Reglan) magnesium 250 mg tablet 250 mg PO DAILY #7 tab 08/05/21 metoclopramide HCl 10 mg tablet 10 mg PO Q6H PRN #10 tab 08/05/21 (Reglan) potassium chloride 10 mEq 10 meq PO DAILY #5 tab 08/05/21 tablet,extended release(part/cryst) Allergies Allergy/AdvReac Type Severity Reaction Status Date / Time No Known Allergies Allergy Unverified 08/05/21 11:46 General Stated Complaint: Nausea/Vomit/Diar TOR: 3 Review of Systems All systems reviewed & are unremarkable except as noted in HPI and below PFSH All Active Problems (Updated 08/05/21 @ 16:09 by REILLY Jett) Nausea and vomiting (Acute) Hyperglycemia (Acute) Dehydration (Acute) Elevated LFTs (Acute) Hypomagnesemia (Acute) Hypokalemia (Acute) Medical History DKA (diabetic ketoacidosis) Narcotic abuse in remission Type I diabetes mellitus Surgical History No significant past surgical history Social History Smoking/Tobacco Use Status: Current every day Tobacco Type: smokeless tobacco Tobacco: How many years used: 20 Smoking risk assessment performed?: Yes Alcohol Intake: former Drug use: Daily Substance use type: marijuana Details: pt states he chews. Pt states he chews a tin a day Do you feel safe at home: Yes Do you feel safe in your relationship?: Yes Exam Const General: cooperative and no acute distress Eyes Conjunctivae: conjunctivae normal Pupils: PERRL Resp Effort & Inspection: normal respiratory effort Auscultation: clear to auscultation bilaterally Cardio Rate: tachycardic Rhythm: regular rhythm GI Inspection: normal to inspection Other: Nontender abdominal exam, specifically no right upper quadrant tenderness Skin General skin exam: no rashes or lesions noted Other: No jaundice or icterus noted Neuro General: patient alert and patient oriented x3 Cognition: normal cognition Speech: speech normal Gait: normal gait Extrem Other: No peripheral edema Course Vital Signs Vital signs: Vital Signs Temperature 36.7 C 08/05/21 11:42 Pulse 125 H 08/05/21 11:42 Respiratory Rate 26 H 08/05/21 11:42 Blood Pressure 127/107 H 08/05/21 11:42 Pulse Oximetry 100 08/05/21 11:42 Temperature 36.7 C 08/05/21 11:42 Temperature Source Temporal Artery Scan 08/05/21 11:42 Pulse 125 H 08/05/21 11:42 Respiratory Rate 26 H 08/05/21 11:42 Respiratory Effort Non-Labored 08/05/21 11:45 Blood Pressure 127/107 H 08/05/21 11:42 Blood Pressure Position Sitting 08/05/21 11:42 Pulse Oximetry 100 08/05/21 11:42 Oxygen Delivery Method Room Air 08/05/21 11:42 Oxygen Flow Rate 0 08/05/21 11:42 Pain Level 0 08/05/21 11:42
[2021-08-05] MEDS: Ondansetron 4 MG/2 ML VIAL IVP (12:00)
[2021-08-05] MEDS: Lactated Ringers 1,000 ML 1000 ML IV ×3 (12:00→13:52)
[2021-08-05 12:01] LABS: Abs Immature Grans 0.02 10^3/uL (0.0-0.06); Absolute Eosinophil Count 0.02 10^3/uL (0.0-0.7); Absolute Lymphocyte Count 0.63 10^3/uL (1.2-3.4); Absolute Monocyte Count 0.29 10^3/uL (0.1-0.8); Absolute Neutrophil Count 7.03 10^3/uL (1.2-6.7); Eosinophils % 0.3; HCT 42.4 % (40.0-50.0); HGB 15.2 g/dL (13.5-17.5); Immature Grans % 0.3; Lymphocytes % 7.9; MCH 33.5 pg (27.0-33.0); MCHC 35.8 % (32.0-36.0); MCV 93.4 fL (80-95); MPV 9.5 fL (8.0-11.0); Monocytes % 3.6; Neutrophils % 87.9; Nucleated RBC 0 %; Platelet Count 199 10^3/uL (130-400); RBC 4.54 10^6/uL (4.36-5.78); RDW 13.1 % (11.8-14.1); RDW-SD 44.8 fL; WBC 7.99 10^3/uL (4.4-10.8)
[2021-08-05 12:03] LABS: BE (Venous) 4 mmol/L (-2-3); HCO3 (Venous) 27 mmol/L (23-28); O2 Sat (Venous) 39 %; TCO2 (Venous) 24 mmol/L (24-29); pCO2 (Venous) 35 mmHg (41-51); pO2 (Venous) 20 mmHg
[2021-08-05 12:09] LABS: Lactate 3.9 mmol/L (0.6-1.4)
[2021-08-05 12:16] LABS: Magnesium 1.2 mg/dL (1.8-2.4)
[2021-08-05] MEDS: Metoclopramide 10 MG/2 ML VIAL IVP (12:34)
[2021-08-05] MEDS: MAGNESIUM SULFATE 2 GM/50 ML BAG IVPB (12:34)
[2021-08-05 12:46] LABS: ALT 175 U/L (16-63); AST 541 U/L (15-37); Albumin 4.1 g/dL (3.4-5.0); Alkaline Phosphatase 152 U/L (46-116); Anion Gap 17.1 mmol/L (3-11); BUN 8 mg/dL (7-18); Bilirubin, Total 4.4 mg/dL (0.2-1.0); CO2 23.9 mmol/L (21.0-32.0); CREATININE 1.1 mg/dL (0.70-1.30); Calcium 9.2 mg/dL (8.5-10.1); Chloride 99 mmol/L (98-107); Glucose 256 mg/dL (74-106); Potassium 3.3 mmol/L (3.5-5.1); Sodium 140 mmol/L (136-145); Total Protein 8.8 g/dL (6.4-8.2)
[2021-08-05] MEDS: LORazepam 2 MG/ML VIAL 1 MG IVP (12:51)
--- NOTE | 2021-08-05 13:13 | DI.VRAD_ITS ---
PROCEDURE INFORMATION: Exam: XR Chest Exam date and time: 08/05/2021 11:55 AM Age: 31 years old Clinical indication: Other: Dka TECHNIQUE: Imaging protocol: XR of the chest. Views: 1 view. COMPARISON: CT CHEST/ABD/PEL W 06/29/2021 5:18 AM FINDINGS: Lungs: Unremarkable. No consolidation. Pleural spaces: Unremarkable. No pleural effusion. No pneumothorax. Heart/Mediastinum: Unremarkable. No cardiomegaly. Bones/joints: Unremarkable. IMPRESSION: No acute findings. Dictated and Authenticated by: Bg Vivar MD. Ordering:HEIDY Tarango MD
[2021-08-05] MEDS: POTASSIUM CHLORIDE 10 MEQ/100 ML BAG 100 MEQ IVPB (13:20)
[2021-08-05 13:38] LABS: Lipase 230 U/L (73-393)
[2021-08-05 14:59] LABS: Bilirubin Small (Negative); Blood Negative (Negative); Clarity Clear (Clear); Glucose 500 mg/dL (Negative); Ketones >=160 mg/dL (Negative); Leukocyte Esterase Negative (Negative); Nitrite Negative (Negative); Specific Gravity 1.025 (1.005-1.025); pH 7.5 (5-8)
[2021-08-05 15:05] LABS: Lactate 1.6 mmol/L (0.6-1.4)
[2021-08-05 15:10] LABS: Bacteria Negative HPF (Negative); C & S Indicated? No; Casts Negative LPF (Negative); Crystals Negative HPF (Negative); Epithelial Cells Rare HPF (Negative); Mucus Negative (Negative); RBC 0-2 HPF (0-2); WBC 0-2 HPF (0-5)
[2021-08-05 15:16] LABS: Anion Gap 10.1 mmol/L (3-11); BUN 7 mg/dL (7-18); CO2 26.9 mmol/L (21.0-32.0); CREATININE 0.8 mg/dL (0.70-1.30); Chloride 101 mmol/L (98-107); Glucose 234 mg/dL (74-106); Potassium 3.7 mmol/L (3.5-5.1); Sodium 138 mmol/L (136-145)
[2021-08-05] MEDS: Normal Saline 500 ML IV (15:20)
[2021-08-05] MEDS: LORazepam 1 MG TAB PO (16:23)
== END 2021-08-05 16:34 | disposition home or self-care (01) ==
PROVIDERS: Emergency Provider Physician Assistant; PCP Internal Medicine
DX: E10.65 Type 1 diabetes mellitus with hyperglycemia (principal); E11.21 Type 2 diabetes mellitus with diabetic nephropathy; E86.0 Dehydration; R79.89 Other specified abnormal findings of blood chemistry; E83.42 Hypomagnesemia; E87.6 Hypokalemia; Z79.4 Long term (current) use of insulin
CPT/HCPCS: 36415; 36416; 80048; 80053; 82805; 82962; 83690; 96361; 96365; 96366; 96368; 96375; 99284; 71045; 81003; 81015; 83605; 83735; 85025; 99285; J2060; J2405; J2765; J3480

== ENCOUNTER 2021-08-12 14:43 | Inpatient (IN) | payer OTHER, SELFPAY ==
[2021-08-12] VITALS (49 sets, daily range): BP systolic 160–204; BP diastolic 76–107; PULSE 55–101; RESP 12–39; TEMP 36.7–38; O2SAT 96–100
--- NOTE | 2021-08-12 | DI.RAD_ITS ---
Exam(s) XR ABD FLAT UPRIGHT PA CHEST EXAM: XR ABD FLAT UPRIGHT PA CHEST CLINICAL HISTORY: tachycardia. TECHNIQUE: 2D digital imaging was performed. COMPARISON: CR,XR XR PORTABLE CHEST AP from 08/05/2021 FINDINGS: Three views, comprised of frontal chest radiograph as well as supine and upright views of the abdomen Heart size normal. Mediastinum not widened. Lungs are clear. No pleural effusions. There is no evidence of bowel obstruction nor free intraperitoneal air. No calcifications seen over the kidneys nor along the course of the ureters. Regional bones unremarkable. No calcified appendic ular lith noted. IMPRESSION: No acute pulmonary findings. No specific radiographic findings in the abdomen. DATA REPOSITORY: RADIATION DOSE DELIVERED:
[2021-08-12] MEDS: Normal Saline 1,000 ML 1000 ML IV (15:20)
[2021-08-12] MEDS: Ondansetron 4 MG/2 ML VIAL IVP ×2 (15:22→19:15)
[2021-08-12] MEDS: LORazepam 2 MG/ML VIAL 1 MG IVP ×2 (15:25→22:49)
[2021-08-12] MEDS: MORPHine 4 MG/ML SYR 2 MG IVP (15:27)
[2021-08-12 15:51] LABS: Abs Immature Grans 0.04 10^3/uL (0.0-0.06); Absolute Basophil Count 0.04 10^3/uL (0.0-0.2); Absolute Eosinophil Count 0.03 10^3/uL (0.0-0.7); Absolute Lymphocyte Count 1.04 10^3/uL (1.2-3.4); Absolute Monocyte Count 0.46 10^3/uL (0.1-0.8); Absolute Neutrophil Count 5.84 10^3/uL (1.2-6.7); Basophils % 0.5; Eosinophils % 0.4; HCT 40.1 % (40.0-50.0); HGB 14.3 g/dL (13.5-17.5); Immature Grans % 0.5; MCH 33.9 pg (27.0-33.0); MCHC 35.7 % (32.0-36.0); MPV 9.4 fL (8.0-11.0); Monocytes % 6.2; Neutrophils % 78.4; Nucleated RBC 0 %; Platelet Count 283 10^3/uL (130-400); RBC 4.22 10^6/uL (4.36-5.78); RDW 13.3 % (11.8-14.1); RDW-SD 46.5 fL; WBC 7.45 10^3/uL (4.4-10.8)
[2021-08-12 15:52] LABS: HCO3 (Venous) 31 mmol/L (23-28); TCO2 (Venous) 28 mmol/L (24-29); pCO2 (Venous) 42 mmHg (41-51); pH (Venous) 7.48 (7.31-7.41); pO2 (Venous) 27 mmHg
[2021-08-12 15:53] LABS: BE (Venous) 8 mmol/L (-2-3); O2 Sat (Venous) 51 %
[2021-08-12 16:07] LABS: ALT 196 U/L (16-63); AST 235 U/L (15-37); Albumin 3.6 g/dL (3.4-5.0); Alkaline Phosphatase 179 U/L (46-116); Anion Gap 12.1 mmol/L (3-11); BUN 5 mg/dL (7-18); Bilirubin, Total 2.1 mg/dL (0.2-1.0); CO2 28.9 mmol/L (21.0-32.0); Calcium 8.7 mg/dL (8.5-10.1); Chloride 103 mmol/L (98-107); Glucose 231 mg/dL (74-106); Lipase 71 U/L (73-393); Magnesium 1.2 mg/dL (1.8-2.4); Potassium 3.7 mmol/L (3.5-5.1); Sodium 144 mmol/L (136-145)
--- NOTE | 2021-08-12 16:15 | RT.EKG_ITS ---
APPROVED REPORT Exam: Resting ECG Reason for Exam: runs of vtach, vomiting Patient Location: E HR:60 bpm ECG Measurements Heart Rate 60 AXIS MD 150 P 14 QRSd 96 QRS 15 QT 465 T 21 QTc 464 Conclusion Sinus rhythm...normal P axis, V-rate 60- 99 sinus rhythm, normal axis, likely age appropriate t wave inversions V1 V2 and biphasic in V3
[2021-08-12 16:21] LABS: Bilirubin Negative (Negative); Blood Negative (Negative); Clarity Clear (Clear); Glucose 500 mg/dL (Negative); Ketones Negative (Negative); Leukocyte Esterase Negative (Negative); Nitrite Negative (Negative); Specific Gravity 1.015 (1.005-1.025); Urobilinogen 0.2 EU/dL (Up TO 0.2); pH >= 9.0 (5-8)
[2021-08-12 16:30] LABS: Bacteria Negative HPF (Negative); C & S Indicated? No; Casts Negative LPF (Negative); Crystals Negative HPF (Negative); Epithelial Cells Negative HPF (Negative); Mucus Trace (Negative); RBC Negative HPF (0-2); WBC Negative HPF (0-5)
[2021-08-12] MEDS: MAGNESIUM SULFATE 1 GM/100 ML BAG IVPB (16:31)
[2021-08-12] MEDS: Lactated Ringers 1,000 ML 1000 ML IV (16:31)
[2021-08-12 16:32] LABS: *AMPHETAMINES SCREEN URINE Negative (Negative); *BARBITURATES SCREEN URINE Negative (Negative); *BENZODIAZEPINES SCREEN URINE Negative (Negative); Cannabinoids THC Negative (Negative); Cocaine Screen,Urine Negative (Negative); METHADONE URINE SCREEN Negative (Negative); OPIATES URINE SCREEN Positive (Negative)
[2021-08-12 16:33] LABS: Tricyclic Antidepressants Negative (Negative)
[2021-08-12 16:39] LABS: Source Nasal/Nares
--- NOTE | 2021-08-12 17:06 | W.ED.GENAD ---
Discharge Plan Disposition Patient Disposition: [facility] INPATIENT Condition: Stable Discharge Details Chief Complaint: Nausea/Vomit/Diar Clinical Impression: Dehydration, Hypomagnesemia, Frequent PVCs Primary Care Provider: Tony Connors ED Provider: Jeremy Bullock Home Meds and New Rx's Prescriptions: No Action Lantus U-100 Insulin 100 unit/mL Solution 24 unit SUBCUT DAILY 0RF insulin aspart U-100 [Novolog U-100 Insulin aspart] 100 unit/mL Solution 1 sliding scale dose SUBCUT USEASDIRECTD 0RF gabapentin 600 mg Tablet 600 mg PO TID 0RF buprenorphine-naloxone 8-2 mg Tablet, Sublingual 1 tab SUBLINGUAL DAILY 0RF cholecalciferol (vitamin D3) [Vitamin D3] 25 mcg (1,000 unit) Tablet 1,000 mcg PO DAILY 0RF omeprazole 20 mg Tablet,Delayed Release (Dr/Ec) 20 mg PO DAILY 0RF magnesium 250 mg tablet 250 mg PO DAILY Qty: 7 0RF potassium chloride 10 mEq tablet,ER particles/crystals 10 meq PO DAILY Qty: 5 0RF metoclopramide HCl [Reglan] 10 mg tablet 10 mg PO Q6H PRNQty: 10 0RF Medical Decision Making 31-year-old male history of diabetes presents with nausea abdominal cramping intermittent vomiting over the last day, fingerstick earlier today was 80 patient had a snack, fingerstick on arrival 188, patient is compliant with his insulin, history of multiple recurrent episodes of nausea vomiting abdominal discomfort, denies history of abdominal surgery. Hemodynamically stable, slightly dry oral mucosa, abdomen soft nontender nondistended, of note patient had multiple runs of A. tach on monitor has no chest pain is no shortness of breath. High clinical suspicion for electrolyte abnormalities versus dehydration versus less likely DKA this is likely only setting of gastroparesis or cyclic vomiting versus withdrawal symptomatology. Screening labs, fluids benzo antiemetics, electrolyte repletion admission likely. Patient had 2 runs of V. tach on monitor, first was a run of PVCs approximately 7 beats long the second approximately 3 beats long. Patient no chest pain no hypotension no shortness of breath. Bedside [id number] echo showing good cardiac squeeze normal-appearing valves and no pericardial effusion. Patient found to be hypomagnesemic. 1 g over 1 hour of magnesium has been given. Patient resting more comfortably. Given level of discomfort on arrival dehydration and runs of V. tach in the setting of hypomagnesemia will admit for telemetry close monitoring repletion of electrolytes continue hydration. Patient's bilirubin and AST ALT are lower than his most recent values. Does have chronic hepatitis C. HPI General Date/Time Provider Initiated Documentation: 08/12/21 15:09. HPI Narrative: 31-year-old male history of diabetes, polysubstance abuse, presents with nausea and vomiting abdominal cramping over the last day, similar episodes in the past, endorses taking his insulin earlier today. Related Data Home Medications Medication Instructions Recorded Confirmed insulin aspart U-100 100 unit/mL 1 sliding scale dose SUBCUT 01/19/20 08/12/21 subcutaneous solution (Novolog USEASDIRECTD U-100 Insulin aspart) insulin glargine 100 unit/mL 24 unit SUBCUT DAILY 01/19/20 08/12/21 subcutaneous solution (Lantus U-100 Insulin) buprenorphine 8 mg-naloxone 2 mg 1 tab SUBLINGUAL DAILY 04/20/21 08/12/21 sublingual tablet cholecalciferol (vitamin D3) 25 1,000 mcg PO DAILY 04/20/21 08/12/21 mcg (1,000 unit) tablet (Vitamin D3) gabapentin 600 mg tablet 600 mg PO TID 04/20/21 08/12/21 omeprazole 20 mg tablet,delayed 20 mg PO DAILY 04/20/21 08/12/21 release magnesium 250 mg tablet 250 mg PO DAILY #7 tab 08/05/21 08/12/21 metoclopramide HCl 10 mg tablet 10 mg PO Q6H PRN #10 tab 08/05/21 08/12/21 (Reglan) potassium chloride 10 mEq 10 meq PO DAILY #5 tab 08/05/21 08/12/21 tablet,extended release(part/cryst) Previous Rx's Medication Instructions Recorded magnesium 250 mg tablet 250 mg PO DAILY #7 tab 08/05/21 metoclopramide HCl 10 mg tablet 10 mg PO Q6H PRN #10 tab 08/05/21 (Reglan) potassium chloride 10 mEq 10 meq PO DAILY #5 tab 08/05/21 tablet,extended release(part/cryst) Allergies Allergy/AdvReac Type Severity Reaction Status Date / Time No Known Allergies Allergy Unverified 08/12/21 14:56 General Stated Complaint: Nausea/Vomit/Diar TOR: 3 Review of Systems Narrative: Review of Systems Constitutional: negative Eyes: negative ENT: negative Cardiovascular: negative Respiratory: negative Gastrointestinal: Nausea abdominal cramping : negative Musculoskeletal: negative Skin: negative Neurologic: negative Psych: negative PFSH All Active Problems (Updated 08/12/21 @ 18:28 by Jeremy Bullock MD) Dehydration (Acute) Elevated LFTs (Acute) Hypomagnesemia (Acute) Hypokalemia (Acute) Frequent PVCs (Acute) Medical History DKA (diabetic ketoacidosis) Narcotic abuse in remission Type I diabetes mellitus Surgical History No significant past surgical history Social History Smoking/Tobacco Use Status: Former Tobacco Use Tobacco: How many years used: 20 Smoking risk assessment performed?: Yes Alcohol Intake: former Substance use type: marijuana Details: former daily marijauna user--08/12/21 Do you feel safe at home: Yes Do you feel safe in your relationship?: Yes Exam Narrative Exam Narrative: Physical Examination General: alert, awake, cooperative, anxious and mildly uncomfortable HEENT: normocephalic, atraumatic; PERRL, EOM intact, conjunctiva normal; no nasal discharge; slight drying of oral mucosa Neck: supple, trachea midline; full ROM Chest: normal to inspection Respiratory: normal respiratory effort, speaking in full sentences, clear to auscultation, no wheezing, rales or rhonchi Cardiac: regular rate, regular rhythm, S1S2 intact, no murmurs rubs or gallops GI: abdomen soft, non-tender, non-distended; no palpable mass or hepatosplenomegaly Skin: no lesions, rashes or trauma appreciated Neuro: AAOx3, normal speech, moving all extremities, normal tone full strength Extremities: No signs of trauma Psych: Anxious appearing Course Vital Signs Vital signs: Vital Signs Temperature 36.7 C 08/12/21 14:47 Pulse 58 L 08/12/21 14:47 Respiratory Rate 26 H 08/12/21 14:47 Blood Pressure 199/97 H 08/12/21 14:47 Pulse Oximetry 99 08/12/21 14:47 Temperature 36.7 C 08/12/21 14:47 Temperature Source Temporal Artery Scan 08/12/21 14:47 Pulse 55 L 08/12/21 15:46 Pulse 57 L 08/12/21 15:46 Respiratory Rate 25 H 08/12/21 15:46 Respiratory Effort 08/12/21 14:54 Blood Pressure 189/85 H 08/12/21 15:46 Blood Pressure Mean 112 08/12/21 15:46 Blood Pressure Position Supine 08/12/21 14:47 Pulse Oximetry 98 08/12/21 15:46 Oxygen Delivery Method Room Air 08/12/21 14:47 Oxygen Flow Rate 0 08/12/21 14:47 Pain Level 5 08/12/21 14:47 Lab/Test Results Lab/Test Results: Laboratory Tests Range/Units 08/12/21 08/12/21 08/12/21 15:30 15:30 15:30 WBC (4.4-10.8) 10^3/uL 7.45 RBC (4.36-5.78) 10^6/uL 4.22 L Hgb (13.5-17.5) g/dL 14.3 Hct (40.0-50.0) % 40.1 MCV (80-95) fL 95.0 MCH (27.0-33.0) pg 33.9 H MCHC (32.0-36.0) % 35.7 RDW (11.8-14.1) % 13.3 Plt Count (130-400) 10^3/uL 283 MPV (8.0-11.0) fL 9.4 Immature Gran % 0.5 Neutrophils % 78.4 Lymphocytes % 14.0 Monocytes % 6.2 Eosinophils % 0.4 Basophils % 0.5 Nucleated RBC % % 0 Absolute Neutrophils (1.2-6.7) 10^3/uL 5.84 Absolute Lymphocytes (1.2-3.4) 10^3/uL 1.04 L Absolute Monocytes (0.1-0.8) 10^3/uL 0.46 Absolute Eosinophils (0.0-0.7) 10^3/uL 0.03 Absolute Basophils (0.0-0.2) 10^3/uL 0.04 VBG pH (7.31-7.41) 7.48 H VBG pCO2 (41-51) mmHg 42 VBG pO2 mmHg 27 VBG HCO3 (23-28) mmol/L 31 H VBG Total CO2 (24-29) mmol/L 28 VBG O2 Saturation % 51 VBG Base Excess (-2-3) mmol/L 8 H Sodium (136-145) mmol/L 144 Potassium (3.5-5.1) mmol/L 3.7 Chloride (98-107) mmol/L 103 Carbon Dioxide (21.0-32.0) mmol/L 28.9 Anion Gap (3-11) mmol/L 12.1 H BUN (7-18) mg/dL 5 L Creatinine (0.70-1.30) mg/dL 1.0 Estimated GFR/1.73 m2 (mL/min/1.73m2) >= 60.00 Glucose (74-106) mg/dL 231 H Calcium (8.5-10.1) mg/dL 8.7 Magnesium (1.8-2.4) mg/dL 1.2 L Total Bilirubin (0.2-1.0) mg/dL 2.1 H AST (15-37) U/L 235 H ALT (16-63) U/L 196 H Alkaline Phosphatase (46-116) U/L 179 H Total Protein (6.4-8.2) g/dL 8.0 Albumin (3.4-5.0) g/dL 3.6 Lipase (73-393) U/L 71 Urine Color (Yellow) Urine Clarity (Clear) Urine pH (5-8) Ur Specific [place] (1.005-1.025) Urine Protein (Negative) mg/dL Urine Ketones (Negative) mg/dL Urine Blood (Negative) Urine Nitrite (Negative) Urine Bilirubin (Negative) Urine Urobilinogen (Up TO 0.2) EU/dL Ur Leukocyte Esterase (Negative) Urine RBC (0-2) HPF Urine WBC (0-5) HPF Ur Epithelial Cells (Negative) HPF Urine Crystals (Negative) HPF Urine Bacteria (Negative) HPF Urine Casts (Negative) LPF Urine Mucus (Negative) Ur Culture Indicated? Urine Glucose (Negative) mg/dL Urine Opiates Screen (Negative) Urine Methadone Screen (Negative) Ur Barbiturates Screen (Negative) Ur Tricyclics Screen (Negative) Ur Amphetamines Screen (Negative) U Benzodiazepines Scrn (Negative) Urine Cocaine Screen (Negative) Ur THC Screen (Negative) COVID-19 Source Range/Units 08/12/21 08/12/21 08/12/21 16:10 16:10 16:35 WBC (4.4-10.8) 10^3/uL RBC (4.36-5.78) 10^6/uL Hgb (13.5-17.5) g/dL Hct (40.0-50.0) % MCV (80-95) fL MCH (27.0-33.0) pg MCHC (32.0-36.0) % RDW (11.8-14.1) % Plt Count (130-400) 10^3/uL MPV (8.0-11.0) fL Immature Gran % Neutrophils % Lymphocytes % Monocytes % Eosinophils % Basophils % Nucleated RBC % % Absolute Neutrophils (1.2-6.7) 10^3/uL Absolute Lymphocytes (1.2-3.4) 10^3/uL Absolute Monocytes (0.1-0.8) 10^3/uL Absolute Eosinophils (0.0-0.7) 10^3/uL Absolute Basophils (0.0-0.2) 10^3/uL VBG pH (7.31-7.41) VBG pCO2 (41-51) mmHg VBG pO2 mmHg VBG HCO3 (23-28) mmol/L VBG Total CO2 (24-29) mmol/L VBG O2 Saturation % VBG Base Excess (-2-3) mmol/L Sodium (136-145) mmol/L Potassium (3.5-5.1) mmol/L Chloride (98-107) mmol/L Carbon Dioxide (21.0-32.0) mmol/L Anion Gap (3-11) mmol/L BUN (7-18) mg/dL Creatinine (0.70-1.30) mg/dL Estimated GFR/1.73 m2 (mL/min/1.73m2) Glucose (74-106) mg/dL Calcium (8.5-10.1) mg/dL Magnesium (1.8-2.4) mg/dL Total Bilirubin (0.2-1.0) mg/dL AST (15-37) U/L ALT (16-63) U/L Alkaline Phosphatase (46-116) U/L Total Protein (6.4-8.2) g/dL Albumin (3.4-5.0) g/dL Lipase (73-393) U/L Urine Color (Yellow) Yellow Urine Clarity (Clear) Clear Urine pH (5-8) >= 9.0 H Ur Specific [place] (1.005-1.025) 1.015 Urine Protein (Negative) mg/dL 100 H Urine Ketones (Negative) mg/dL Negative Urine Blood (Negative) Negative Urine Nitrite (Negative) Negative Urine Bilirubin (Negative) Negative Urine Urobilinogen (Up TO 0.2) EU/dL 0.2 Ur Leukocyte Esterase (Negative) Negative Urine RBC (0-2) HPF Negative Urine WBC (0-5) HPF Negative Ur Epithelial Cells (Negative) HPF Negative Urine Crystals (Negative) HPF Negative Urine Bacteria (Negative) HPF Negative Urine Casts (Negative) LPF Negative Urine Mucus (Negative) Trace Ur Culture Indicated? No Urine Glucose (Negative) mg/dL 500 H Urine Opiates Screen (Negative) Positive A Urine Methadone Screen (Negative) Negative Ur Barbiturates Screen (Negative) Negative Ur Tricyclics Screen (Negative) Negative Ur Amphetamines Screen (Negative) Negative U Benzodiazepines Scrn (Negative) Negative Urine Cocaine Screen (Negative) Negative Ur THC Screen (Negative) Negative COVID-19 Source Nasal/Nares
[2021-08-12 17:18] LABS: COVID-19 PCR Negative (Negative)
[2021-08-12] MEDS: Pantoprazole 40 MG VIAL IVP (19:21)
--- NOTE | 2021-08-12 20:44 | DI.VRAD_ITS ---
PROCEDURE INFORMATION: Exam: XR Complete Acute Abdomen Series Including Chest Exam date and time: 08/12/2021 7:46 PM Age: 31 years old Clinical indication: Patient HX: Tachycardia; Per PT: Nausea and vomiting TECHNIQUE: Imaging protocol: XR complete acute abdomen series, including 2 or more views of the abdomen and a single view chest. COMPARISON: XR PORTABLE CHEST AP 08/05/2021 12:44 PM FINDINGS: Tubes, catheters and devices: Monitoring wires noted. Lungs: Normal. No consolidation. Pleural spaces: Normal. No pleural effusions. No pneumothorax. Heart/Mediastinum: Normal. No cardiomegaly. Gastrointestinal tract: Negative for dilated air-filled loops of small bowel. Mild gas and stool noted in the colon. Intraperitoneal space: Normal. No free air. Organs: Normal liver contour. Bones/joints: Normal. No acute fracture. Soft tissues: Normal. IMPRESSION: 1. Negative for bowel obstruction. 2. No acute cardiopulmonary abnormality. Dictated and Authenticated by: Tony Piedra MD. Ordering:GARRET Marie MD
[2021-08-12] MEDS: Lactated Ringers 1,000 ML 125 ML IV (20:58)
--- NOTE | 2021-08-12 21:33 | W.PM.HP.N ---
Assessment and Plan Assessment and plan (1) Dehydration: Status: Acute Assessment and plan: He is receiving intravenous fluids which will be continued. (2) Hypomagnesemia: Status: Acute Assessment and plan: He did receive 1 g of magnesium sulfate in the emergency department. I will order another infusion and check another another magnesium level. I do not think he will tolerate oral magnesium at this time. (3) Elevated LFTs: Status: Acute Assessment and plan: He does have a history of hepatitis C. I do not know the status of this at this time. I will check his liver functions again in the morning. (4) Vomiting: Status: Acute Assessment and plan: He will be treated with antiemetics. This is been a chronic problem and a solution has not been found for him. He will be seeing a retail analytics manager soon according to his history. Acute abdominal series did not show any evidence of bowel obstruction. I do not think he is suffering from diabetic ketoacidosis at this time. He will be treated with promethazine for the vomiting. (5) Arrhythmia: Status: Acute Assessment and plan: He was reported to have a couple episodes of what appeared to be ventricular tachycardia. I did not see the rhythm strip. Electrocardiogram is normal at this time. He will be placed on cardiac monitoring. History of Present Illness History of Present Illness Chief Complaint: Nausea, abd cramps, and vomiting Narrative: This 31-year-old diabetic presented to the hospital with chief complaint nausea vomiting abdominal cramps. He says he has had a history of this problem going back at least 6 or 7 months. He says he has been to the hospital 6 or 7 times for this and was admitted with once. He was last here 1 week ago and was treated and released. He states that last year he had an EGD for this and says the only thing they found was some redness but he does not have any further details. He is scheduled to see gastroenterology at the [facility] one of her junctions soon but is not sure exactly what date. He has not been around anyone else has been ill. He lives with a friend who is not ill. He has received his coronavirus vaccines. He says his blood sugars have been under stable control at times have been low. He is not eating anything unusual and has had no food intolerances that he is aware of. He has not had diarrhea. There has been no hematemesis or hematochezia. He is having some soreness in the back. He has had some chills but no known fever. He says at one time he was admitted to the intensive care unit for couple days. He says that he feels fine in between these episodes of nausea and vomiting. When he was evaluated today he was found to have a magnesium level of 1.2 and received 1 g of magnesium in the emergency department. While being monitored he was found out a couple episodes of very short runs of ventricular tachycardia. A bedside echocardiogram was done by the emergency physician who felt that he had normal contractility. There is a concern that he may have gastroparesis. Review of Systems Constitutional Constitutional: Reports chills, Denies fever(s), Denies frequent falls, Denies headache(s), Reports lethargy and Reports malaise Eyes Eyes: Denies loss of vision ENT Ears, Nose, Mouth, and Throat: Denies dizziness and Denies headache(s) Cardiovascular Cardiovascular: Denies chest pain at rest, Denies syncope, Denies rapid heart rate, Denies lightheadedness, Denies palpitations and Denies dyspnea Respiratory Respiratory: Denies cough, Denies dyspnea and Denies wheezing Gastrointestinal Gastrointestinal: Denies abdominal pain, Reports cramping, Denies heartburn, Denies diarrhea, Reports nausea and Reports vomiting Genitourinary Genitourinary: Denies oliguria, Denies difficulty urinating and Denies dysuria Musculoskeletal Musculoskeletal: Denies myalgias Neurologic Neurologic: Denies dizziness, Denies syncope, Denies frequent falls, Denies headache(s), Denies loss of vision and Denies convulsions Endocrine Endocrine: Denies palpitations Allergic/Immunologic Allergic/Immunologic: Denies wheezing PFSH All Active Problems (Updated 08/12/21 @ 21:54 by Frank Reed MD) Arrhythmia (Acute) Vomiting (Acute) Dehydration (Acute) Elevated LFTs (Acute) Hypomagnesemia (Acute) Hypokalemia (Acute) Frequent PVCs (Acute) Medical History DKA (diabetic ketoacidosis) Narcotic abuse in remission Type I diabetes mellitus Surgical History No significant past surgical history Social History Smoking/Tobacco Use Status: Former Tobacco Use Tobacco: How many years used: 20 Smoking risk assessment performed?: Yes Alcohol Intake: former Substance use type: marijuana Details: former daily marijauna user--08/12/21 Do you feel safe at home: Yes Do you feel safe in your relationship?: Yes Meds Allergies and Home Medications Allergies Allergy/AdvReac Type Severity Reaction Status Date / Time No Known Allergies Allergy Unverified 08/12/21 14:56 Home Medications Medication Instructions Recorded Confirmed Type insulin aspart U-100 100 unit/mL 1 sliding scale dose SUBCUT 01/19/20 08/12/21 History subcutaneous solution (Novolog USEASDIRECTD U-100 Insulin aspart) insulin glargine 100 unit/mL 24 unit SUBCUT DAILY 01/19/20 08/12/21 History subcutaneous solution (Lantus U-100 Insulin) buprenorphine 8 mg-naloxone 2 mg 1 tab SUBLINGUAL DAILY 04/20/21 08/12/21 History sublingual tablet cholecalciferol (vitamin D3) 25 1,000 mcg PO DAILY 04/20/21 08/12/21 History mcg (1,000 unit) tablet (Vitamin D3) gabapentin 600 mg tablet 600 mg PO TID 04/20/21 08/12/21 History omeprazole 20 mg tablet,delayed 20 mg PO DAILY 04/20/21 08/12/21 History release magnesium 250 mg tablet 250 mg PO DAILY #7 tab 08/05/21 08/12/21 Rx metoclopramide HCl 10 mg tablet 10 mg PO Q6H PRN #10 tab 08/05/21 08/12/21 Rx (Reglan) potassium chloride 10 mEq 10 meq PO DAILY #5 tab 08/05/21 08/12/21 Rx tablet,extended release(part/cryst) Exam Const General: cooperative, comfortable, no acute distress, does not appear intoxicated and not lethargic Nutritional Appearance: well nourished HENDC Mouth: oral mucosae normal Eyes General: appearance normal, both eyes and all related structures Neck Neck: normal visual inspection, no lymphadenopathy and no meningeal signs Resp Auscultation: clear to auscultation bilaterally, no rales and no rhonchi Cardio Rate: regular rate Rhythm: regular rhythm Heart Sounds: S1 normal, S2 normal, no gallops and no murmurs GI Palpation: soft, no hepatosplenomegaly, not firm, no masses and nontender Skin General skin exam: no rashes or lesions noted Neuro General: patient alert, patient awake and patient oriented x3 Extrem General: calf tenderness and no edema Results Labs Result diagrams: 08/12/21 15:30 08/12/21 15:30 Labs: Laboratory Results - last 24 hr 08/12/21 08/12/21 08/12/21 15:30 15:30 15:30 WBC 7.45 RBC 4.22 L Hgb 14.3 Hct 40.1 MCV 95.0 MCH 33.9 H MCHC 35.7 RDW 13.3 Plt Count 283 MPV 9.4 Immature Gran % 0.5 Neutrophils % 78.4 Lymphocytes % 14.0 Monocytes % 6.2 Eosinophils % 0.4 Basophils % 0.5 Nucleated RBC % 0 Absolute Neutrophils 5.84 Absolute Lymphocytes 1.04 L Absolute Monocytes 0.46 Absolute Eosinophils 0.03 Absolute Basophils 0.04 VBG pH 7.48 H VBG pCO2 42 VBG pO2 27 VBG HCO3 31 H VBG Total CO2 28 VBG O2 Saturation 51 VBG Base Excess 8 H Sodium 144 Potassium 3.7 Chloride 103 Carbon Dioxide 28.9 Anion Gap 12.1 H BUN 5 L Creatinine 1.0 Estimated GFR/1.73 m2 >= 60.00 Glucose 231 H Calcium 8.7 Magnesium 1.2 L Total Bilirubin 2.1 H AST 235 H ALT 196 H Alkaline Phosphatase 179 H Total Protein 8.0 Albumin 3.6 Lipase 71 Urine Color Urine Clarity Urine pH Ur Specific [place] Urine Protein Urine Ketones Urine Blood Urine Nitrite Urine Bilirubin Urine Urobilinogen Ur Leukocyte Esterase Urine RBC Urine WBC Ur Epithelial Cells Urine Crystals Urine Bacteria Urine Casts Urine Mucus Ur Culture Indicated? Urine Glucose Urine Opiates Screen Urine Methadone Screen Ur Barbiturates Screen Ur Tricyclics Screen Ur Amphetamines Screen U Benzodiazepines Scrn Urine Cocaine Screen Ur THC Screen COVID-19 Source SARS-CoV-2 (PCR) 08/12/21 08/12/21 08/12/21 16:10 16:10 16:35 WBC RBC Hgb Hct MCV MCH MCHC RDW Plt Count MPV Immature Gran % Neutrophils % Lymphocytes % Monocytes % Eosinophils % Basophils % Nucleated RBC % Absolute Neutrophils Absolute Lymphocytes Absolute Monocytes Absolute Eosinophils Absolute Basophils VBG pH VBG pCO2 VBG pO2 VBG HCO3 VBG Total CO2 VBG O2 Saturation VBG Base Excess Sodium Potassium Chloride Carbon Dioxide Anion Gap BUN Creatinine Estimated GFR/1.73 m2 Glucose Calcium Magnesium Total Bilirubin AST ALT Alkaline Phosphatase Total Protein Albumin Lipase Urine Color Yellow Urine Clarity Clear Urine pH >= 9.0 H Ur Specific [place] 1.015 Urine Protein 100 H Urine Ketones Negative Urine Blood Negative Urine Nitrite Negative Urine Bilirubin Negative Urine Urobilinogen 0.2 Ur Leukocyte Esterase Negative Urine RBC Negative Urine WBC Negative Ur Epithelial Cells Negative Urine Crystals Negative Urine Bacteria Negative Urine Casts Negative Urine Mucus Trace Ur Culture Indicated? No Urine Glucose 500 H Urine Opiates Screen Positive A Urine Methadone Screen Negative Ur Barbiturates Screen Negative Ur Tricyclics Screen Negative Ur Amphetamines Screen Negative U Benzodiazepines Scrn Negative Urine Cocaine Screen Negative Ur THC Screen Negative COVID-19 Source Nasal/Nares SARS-CoV-2 (PCR) Negative Last Vital Signs Temp 36.9 C 08/12/21 20:07 Pulse 72 08/12/21 20:15 Resp 16 08/12/21 20:07 BP 181/90 H 08/12/21 20:07 Pulse Ox 100 08/12/21 20:07
[2021-08-12] MEDS: MAGNESIUM SULFATE 20 GM/500 ML BAG IV (22:06)
[2021-08-12 22:07] LABS: Anion Gap 8.1 mmol/L (3-11); BUN 6 mg/dL (7-18); CO2 28.9 mmol/L (21.0-32.0); CREATININE 0.9 mg/dL (0.70-1.30); Calcium 7.9 mg/dL (8.5-10.1); Chloride 105 mmol/L (98-107); Glucose 212 mg/dL (74-106); Magnesium 1.4 mg/dL (1.8-2.4); Potassium 4.1 mmol/L (3.5-5.1); Sodium 142 mmol/L (136-145)
[2021-08-12] MEDS: MAGNESIUM SULFATE 2 GM/50 ML BAG IVPB (22:49)
[2021-08-13] VITALS (9 sets, daily range): BP systolic 149–186; BP diastolic 85–99; PULSE 61–140; RESP 14–18; TEMP 36.8–37.2; O2SAT 99–100
[2021-08-13] MEDS: ACETAMINOPHEN 1,000 MG/100 ML BTL 400 MG IVPB ×4 (02:33→20:36)
[2021-08-13 07:23] LABS: Abs Immature Grans 0.03 10^3/uL (0.0-0.06); Absolute Basophil Count 0.02 10^3/uL (0.0-0.2); Absolute Eosinophil Count 0.01 10^3/uL (0.0-0.7); Absolute Lymphocyte Count 1.24 10^3/uL (1.2-3.4); Absolute Monocyte Count 0.68 10^3/uL (0.1-0.8); Absolute Neutrophil Count 3.46 10^3/uL (1.2-6.7); Basophils % 0.4; Eosinophils % 0.2; HCT 35.1 % (40.0-50.0); HGB 12.7 g/dL (13.5-17.5); Immature Grans % 0.6; Lymphocytes % 22.8; MCH 34.2 pg (27.0-33.0); MCHC 36.2 % (32.0-36.0); MCV 94.6 fL (80-95); MPV 9.6 fL (8.0-11.0); Monocytes % 12.5; Neutrophils % 63.5; Nucleated RBC 0 %; Platelet Count 230 10^3/uL (130-400); RBC 3.71 10^6/uL (4.36-5.78); RDW 13.1 % (11.8-14.1); RDW-SD 45.7 fL; WBC 5.44 10^3/uL (4.4-10.8)
[2021-08-13 07:40] LABS: ALT 130 U/L (16-63); AST 132 U/L (15-37); Albumin 2.9 g/dL (3.4-5.0); Alkaline Phosphatase 144 U/L (46-116); Anion Gap 10.5 mmol/L (3-11); BUN 5 mg/dL (7-18); Bilirubin, Total 2.5 mg/dL (0.2-1.0); CO2 26.5 mmol/L (21.0-32.0); CREATININE 0.8 mg/dL (0.70-1.30); Calcium 7.6 mg/dL (8.5-10.1); Chloride 99 mmol/L (98-107); Glucose 172 mg/dL (74-106); Magnesium 1.9 mg/dL (1.8-2.4); Potassium 3.4 mmol/L (3.5-5.1); Sodium 136 mmol/L (136-145); Total Protein 6.7 g/dL (6.4-8.2)
[2021-08-13] MEDS: Potassium Chloride Liquid 20 MEQ PKT PO ×2 (08:28→20:38)
--- NOTE | 2021-08-13 08:29 | PDOC.CMIN ---
- If Service Date Differs Date of service: 08/13/21 Time of Service: 08:29 Care Management Initial Assess REASON FOR HOSPITALIZATION:: Vomiting, Dehydration, Hypomagnesmia, Arrythmia, Elevated LFT's. PAST MEDICAL HISTORY/PAST SURGICAL HISTORY:: All Active Problems (Updated 08/12/21 @ 21:54 by Frank Reed MD). Arrhythmia (Acute). Vomiting (Acute). Dehydration (Acute). Elevated LFTs (Acute). Hypomagnesemia (Acute). Hypokalemia (Acute). Frequent PVCs (Acute). Medical History . DKA (diabetic ketoacidosis). Narcotic abuse in remission. Type I diabetes mellitus. Surgical History . No significant past surgical history PREVIOUS FUNCTIONAL STATUS/SOCIAL/FAMILY SUPPORTS:: Niraj lives in [place], [place] with a roomate. He is currently unemployed. He is independent at baseline and drives. CURRENT FUNCTIONAL STATUS:: Niraj was lying in bed when CM met with him. He is alert, oriented and cooperative. He shares that he was in the [employer] until he was diagnosed with diabetes. He shares frustration related to not being able to tolerate liquids without N/V and shares that reglan works better better for him. ADVANCE DIRECTIVES:: None on file, CM will offer forms. Has patient been provided with info about the portal/API?: Yes Did the patient sign up for the portal?: No CODE STATUS:: Full Code INSURANCE COVERAGE / FINANCIAL ISSUES:: [facility]. [facility] and [employer] [facility] CURRENT HOME/COMMUNITY SERVICES/EQUIPMENT:: [place] PRIMARY CARE PHYSICIAN:: Tony Connors POTENTIAL DISCHARGE NEEDS:: Follow up appointments. PATIENT/FAMILY EDUCATION NEEDS:: Review discharge instructions, limitations, medications and plan to follow up with community providers. ask me three. TRANSPORTATION:: via private vehicle with a friend. PLAN:: Niraj requires inpatient admission for further evaluation, treatment and monitoring. Anticipate, Niraj will discharge home via private vehicle with family when medically cleared by [facility]. He will follow up with his community providers and discharge plan of care as prescribed.
[2021-08-13] MEDS: POTASSIUM CHLORIDE 20 MEQ/100 ML BAG 25 MEQ IVPB (08:50)
[2021-08-13] MEDS: Insulin Aspart 300 UNITS/3 ML PEN SC ×4 (08:50→21:53)
[2021-08-13] MEDS: Buprenorphine/Naloxone 4 mg/1 mg FILM 1 EACH SL (09:15)
[2021-08-13] MEDS: Normal Saline Flush 10 ML SYR (10:18)
[2021-08-13] MEDS: Lactated Ringers 1,000 ML 125 ML IV (11:19)
--- NOTE | 2021-08-13 12:23 | PGE_ITS ---
Date of Service Date of service: 08/13/21 Time of Service: 12:23 Assessment and Plan Assessment and plan (1) Vomiting: Status: Acute Assessment and plan: as below for treatment of dehydration. use antiemetics. Needs workup of UGI including NM gastric emptying and GB US. If negative then repeat EGD. His CT of his chest and abdomen have shown some distal esophageal wall thickening and a hiatal hernia which suggests GERD w/ esophagitis, however, I think that the underlying mechanism is gastroparesis. (2) Dehydration: Status: Acute Assessment and plan: continue iv fluids and give prn antiemetics. could trial on iv reglan but I want to wait until we get NM gastric emptying study tomorrow. Reglan could interfere w/ results. will treat nausea w/ lorazepam and zofran (3) Hypomagnesemia: Status: Acute Assessment and plan: resolved w/ replacement. will put on oral supplementation and repeat level in the a.m. (4) Hypokalemia: Status: Acute Assessment and plan: being given iv replacement. I have changed his maintenance fluids to include potassium. will monitor. I also have ordered oral potassium. (5) Frequent PVCs: Status: Acute Assessment and plan: patient had some ventricular ectopy w/ nonsustained runs of couplets and triplets. I suspect d/t electrolyte abnormalities as above. cont. replacement w/ iv and oral supplements. monitor levels. No arrhythmias other than sinus tach this morning while up to the bathroom. (6) Elevated LFTs: Status: Acute (7) Type I diabetes mellitus: Assessment and plan: he should receive 1/3 to 1/2 his usual Lantus dose even if he is not eating. Last admission he came in DKA. He is on SSI insulin resistant dosing but only getting 3 x per day at meal time. He should get glucose levels checked 4 to 6x per day i.e. either q4 to 6hr or at least AC/HS and have coverage. His urinalysi s was neg. for ketones last night. As he is not really eating, I will not put him on CHO coverage just yet. (8) Hiatal hernia with GERD: Status: Suspected Assessment and plan: as per workup noted above and below (9) Diabetic gastroparesis associated with type 1 diabetes mellitus: Status: Suspected Assessment and plan: suspected. workup as above. If NM gastric emptying is negative and GB US is negative then he should have EGD and if this is negative then an esophageal motility study should be done w/ manometry and pH monitoring. Subjective Subjective Interval history since last seen: Patient complains of recurrent nausea and occasional emesis of clear to white fluid. No hematemesis. No history of melena or hematochezia. Patient has been seen by GI services at the [facility] in the past and has had upper endoscopy and he believes he may have had a nuclear gastric emptying study. We have none on file. He was admitted yesterday because of nausea vomiting and dehydration. He has a history of type 1 diabetes mellitus but was not in DKA. Exam Narrative Exam Narrative: Young white male lying in bed with the lights out shades pulled down trying to rest. He appears to be ill but not in any distress. Abdomen reveals nondistended abdomen with normal bowel sounds soft nontender no guarding or rebound tenderness no palpable masses or bruits. He is able to pass flatus. Objective Last Vital Signs Temp 36.8 C 08/13/21 11:54 Pulse 84 08/13/21 11:54 Resp 18 08/13/21 11:54 BP 167/93 H 08/13/21 11:54 Pulse Ox 99 08/13/21 11:54 Laboratory Results - last 24 hr 08/12/21 08/12/21 08/12/21 15:30 15:30 15:30 WBC 7.45 RBC 4.22 L Hgb 14.3 Hct 40.1 MCV 95.0 MCH 33.9 H MCHC 35.7 RDW 13.3 Plt Count 283 MPV 9.4 Immature Gran % 0.5 Neutrophils % 78.4 Lymphocytes % 14.0 Monocytes % 6.2 Eosinophils % 0.4 Basophils % 0.5 Nucleated RBC % 0 Absolute Neutrophils 5.84 Absolute Lymphocytes 1.04 L Absolute Monocytes 0.46 Absolute Eosinophils 0.03 Absolute Basophils 0.04 VBG pH 7.48 H VBG pCO2 42 VBG pO2 27 VBG HCO3 31 H VBG Total CO2 28 VBG O2 Saturation 51 VBG Base Excess 8 H Sodium 144 Potassium 3.7 Chloride 103 Carbon Dioxide 28.9 Anion Gap 12.1 H BUN 5 L Creatinine 1.0 Estimated GFR/1.73 m2 >= 60.00 Glucose 231 H Calcium 8.7 Magnesium 1.2 L Total Bilirubin 2.1 H AST 235 H ALT 196 H Alkaline Phosphatase 179 H Total Protein 8.0 Albumin 3.6 Lipase 71 Urine Color Urine Clarity Urine pH Ur Specific [place] Urine Protein Urine Ketones Urine Blood Urine Nitrite Urine Bilirubin Urine Urobilinogen Ur Leukocyte Esterase Urine RBC Urine WBC Ur Epithelial Cells Urine Crystals Urine Bacteria Urine Casts Urine Mucus Ur Culture Indicated? Urine Glucose Urine Opiates Screen Urine Methadone Screen Ur Barbiturates Screen Ur Tricyclics Screen Ur Amphetamines Screen U Benzodiazepines Scrn Urine Cocaine Screen Ur THC Screen COVID-19 Source SARS-CoV-2 (PCR) 08/12/21 08/12/21 08/12/21 16:10 16:10 16:35 WBC RBC Hgb Hct MCV MCH MCHC RDW Plt Count MPV Immature Gran % Neutrophils % Lymphocytes % Monocytes % Eosinophils % Basophils % Nucleated RBC % Absolute Neutrophils Absolute Lymphocytes Absolute Monocytes Absolute Eosinophils Absolute Basophils VBG pH VBG pCO2 VBG pO2 VBG HCO3 VBG Total CO2 VBG O2 Saturation VBG Base Excess Sodium Potassium Chloride Carbon Dioxide Anion Gap BUN Creatinine Estimated GFR/1.73 m2 Glucose Calcium Magnesium Total Bilirubin AST ALT Alkaline Phosphatase Total Protein Albumin Lipase Urine Color Yellow Urine Clarity Clear Urine pH >= 9.0 H Ur Specific [place] 1.015 Urine Protein 100 H Urine Ketones Negative Urine Blood Negative Urine Nitrite Negative Urine Bilirubin Negative Urine Urobilinogen 0.2 Ur Leukocyte Esterase Negative Urine RBC Negative Urine WBC Negative Ur Epithelial Cells Negative Urine Crystals Negative Urine Bacteria Negative Urine Casts Negative Urine Mucus Trace Ur Culture Indicated? No Urine Glucose 500 H Urine Opiates Screen Positive A Urine Methadone Screen Negative Ur Barbiturates Screen Negative Ur Tricyclics Screen Negative Ur Amphetamines Screen Negative U Benzodiazepines Scrn Negative Urine Cocaine Screen Negative Ur THC Screen Negative COVID-19 Source Nasal/Nares SARS-CoV-2 (PCR) Negative 08/12/21 08/12/21 08/13/21 21:33 21:40 06:45 WBC RBC Hgb Hct MCV MCH MCHC RDW Plt Count MPV Immature Gran % Neutrophils % Lymphocytes % Monocytes % Eosinophils % Basophils % Nucleated RBC % Absolute Neutrophils Absolute Lymphocytes Absolute Monocytes Absolute Eosinophils Absolute Basophils VBG pH VBG pCO2 VBG pO2 VBG HCO3 VBG Total CO2 VBG O2 Saturation VBG Base Excess Sodium 142 136 Potassium 4.1 3.4 L Chloride 105 99 Carbon Dioxide 28.9 26.5 Anion Gap 8.1 10.5 BUN 6 L 5 L Creatinine 0.9 0.8 Estimated GFR/1.73 m2 >= 60.00 >= 60.00 Glucose 212 H 172 H Calcium 7.9 L 7.6 L Magnesium Cancelled 1.4 L 1.9 Total Bilirubin 2.5 H AST 132 H ALT 130 H Alkaline Phosphatase 144 H Total Protein 6.7 Albumin 2.9 L Lipase Urine Color Urine Clarity Urine pH Ur Specific [place] Urine Protein Urine Ketones Urine Blood Urine Nitrite Urine Bilirubin Urine Urobilinogen Ur Leukocyte Esterase Urine RBC Urine WBC Ur Epithelial Cells Urine Crystals Urine Bacteria Urine Casts Urine Mucus Ur Culture Indicated? Urine Glucose Urine Opiates Screen Urine Methadone Screen Ur Barbiturates Screen Ur Tricyclics Screen Ur Amphetamines Screen U Benzodiazepines Scrn Urine Cocaine Screen Ur THC Screen COVID-19 Source SARS-CoV-2 (PCR) 08/13/21 06:45 WBC 5.44 RBC 3.71 L Hgb 12.7 L Hct 35.1 L MCV 94.6 MCH 34.2 H MCHC 36.2 H RDW 13.1 Plt Count 230 MPV 9.6 Immature Gran % 0.6 Neutrophils % 63.5 Lymphocytes % 22.8 Monocytes % 12.5 Eosinophils % 0.2 Basophils % 0.4 Nucleated RBC % 0 Absolute Neutrophils 3.46 Absolute Lymphocytes 1.24 Absolute Monocytes 0.68 Absolute Eosinophils 0.01 Absolute Basophils 0.02 VBG pH VBG pCO2 VBG pO2 VBG HCO3 VBG Total CO2 VBG O2 Saturation VBG Base Excess Sodium Potassium Chloride Carbon Dioxide Anion Gap BUN Creatinine Estimated GFR/1.73 m2 Glucose Calcium Magnesium Total Bilirubin AST ALT Alkaline Phosphatase Total Protein Albumin Lipase Urine Color Urine Clarity Urine pH Ur Specific [place] Urine Protein Urine Ketones Urine Blood Urine Nitrite Urine Bilirubin Urine Urobilinogen Ur Leukocyte Esterase Urine RBC Urine WBC Ur Epithelial Cells Urine Crystals Urine Bacteria Urine Casts Urine Mucus Ur Culture Indicated? Urine Glucose Urine Opiates Screen Urine Methadone Screen Ur Barbiturates Screen Ur Tricyclics Screen Ur Amphetamines Screen U Benzodiazepines Scrn Urine Cocaine Screen Ur THC Screen COVID-19 Source SARS-CoV-2 (PCR)
[2021-08-13] MEDS: LORazepam 2 MG/ML VIAL IVP ×2 (13:09→20:49)
[2021-08-13] MEDS: Insulin Glargine 300 UNITS/3 ML PEN 8 UNITS SC (13:09)
[2021-08-13] MEDS: Normal Saline Flush 10 ML SYR IVP ×2 (13:09→20:37)
[2021-08-13] MEDS: Pantoprazole 40 MG VIAL IVP (20:37)
[2021-08-14] VITALS: PULSE 64
--- NOTE | 2021-08-14 | DI.US_ITS ---
Exam(s) US ABDOMEN EXAM: US ABDOMEN CLINICAL HISTORY: nausea, vomiting, abdominal pain TECHNIQUE: Ultrasound of complete upper abdomen performed using standard protocol. COMPARISON: CT CT CHEST/ABD/PEL W from 06/29/2021 FINDINGS: There is no ascites evident. LIVER: There are no hepatic lesions evident nor obvious dilatation of intrahepatic ducts. GALLBLADDER/BILIARY: There are no gallstones. No gallbladder wall edema nor pericholecystic fluid. The common hepatic duct isnot dilated, measuring 3-4mm at the level of gisele hepatis. PANCREAS: There is no evidence of pancreatic mass nor dilatation of the pancreatic duct. SPLEEN: The spleen is not enlarged and there are no intrasplenic lesions evident. KIDNEYS:Kidneys exhibit normal size with no evidence of solid mass, calculus, nor hydronephrosis. No cortical cysts evident. ABDOMINAL AORTA: There is no evidence of abdominal aortic aneurysm. IVC: Normal diameter where visualized. IMPRESSION: 1. No evidence of cholelithiasis nor dilatation of the biliary tree. 2. No other significant ultrasound findings in the upper abdomen. 3. Please note that recent CT scan 06/29/2021 revealed abnormal circumferential thickening of the lo wer esophagus. Endoscopy is recommended. DATA REPOSITORY:
[2021-08-14 01:34] VITALS: BP 170/88; PULSE 63; RESP 16; TEMP 36.6; O2SAT 100
[2021-08-14] MEDS: ACETAMINOPHEN 1,000 MG/100 ML BTL 400 MG IVPB ×2 (01:39→07:50)
[2021-08-14] MEDS: LORazepam 2 MG/ML VIAL IVP ×2 (01:39→17:58)
[2021-08-14] MEDS: Normal Saline Flush 10 ML SYR IVP ×5 (01:40→20:34)
[2021-08-14 05:00] VITALS: PULSE 65
[2021-08-14] MEDS: Ondansetron 4 MG/2 ML VIAL IVP (05:24)
[2021-08-14 07:26] LABS: ALT 124 U/L (16-63); AST 125 U/L (15-37); Albumin 3.1 g/dL (3.4-5.0); Alkaline Phosphatase 134 U/L (46-116); Bilirubin, Direct 1.6 mg/dL (0.0-0.2); Total Protein 6.8 g/dL (6.4-8.2)
[2021-08-14 07:36] LABS: Anion Gap 10.8 mmol/L (3-11); BUN 3 mg/dL (7-18); CO2 22.2 mmol/L (21.0-32.0); CREATININE 0.7 mg/dL (0.70-1.30); Calcium 8.1 mg/dL (8.5-10.1); Chloride 98 mmol/L (98-107); Ferritin 172 ng/mL (26-388); Glucose 242 mg/dL (74-106); Magnesium 1.4 mg/dL (1.8-2.4); Potassium 4.1 mmol/L (3.5-5.1); Sodium 131 mmol/L (136-145)
[2021-08-14] MEDS: Gabapentin 600 MG TAB PO ×3 (07:50→20:34)
[2021-08-14] MEDS: Buprenorphine/Naloxone 4 mg/1 mg FILM 1 EACH SL (07:50)
[2021-08-14 08:35] VITALS: BP 170/90; PULSE 73; RESP 18; TEMP 36.9; O2SAT 100
[2021-08-14] MEDS: Insulin Aspart 300 UNITS/3 ML PEN SC ×3 (08:46→22:10)
[2021-08-14] MEDS: Insulin Glargine 300 UNITS/3 ML PEN 8 UNITS SC (08:47)
--- NOTE | 2021-08-14 09:23 | PDOC.CMPRO ---
- If Service Date Differs Date of service: 08/14/21 Time of Service: 09:23 Care Management Progress Note S/O: Niraj was sitting up in bed eating lunch when CM met with him. His diet was advanced, which makes him very happy. He has no concerns at this time. A: 31 year old male admitted to [facility] on 08/12/21 for Nausea, Vomiting, Hypomagnesemia P: Niraj requires inpatient admission for further evaluation, treatment and monitoring. Anticipate, Niraj will discharge home via private vehicle with family when medically cleared by [facility]. He will follow up with his community providers and discharge plan of care as prescribed.
--- NOTE | 2021-08-14 10:07 | W.PM.PROGNOT ---
Date of Service Date of service: 08/14/21 Time of Service: 10:07 Assessment and Plan Assessment and plan (1) Diabetic gastroparesis associated with type 1 diabetes mellitus: Status: Suspected Assessment and plan: suspected. workup as above. If NM gastric emptying is negative and GB US is negative then he should have EGD and if this is negative then an esophageal motility study should be done w/ manometry and pH monitoring. (2) Hiatal hernia with GERD: Status: Suspected Assessment and plan: as per workup noted above and below (3) Type I diabetes mellitus: Assessment and plan: resume his usual lantus dose and give carb coverage w/ his meals. (4) Hypomagnesemia: Status: Acute Assessment and plan: was repleted w/ iv magnesium but now is down to 1.4. He did not get on oral supplement. I will give iv dose and start on supplement. (5) Hypokalemia: Status: Acute Assessment and plan: potassium up to 4.1 today. He is no longer on oral or iv potassium. his oral dosing has completed. I will repeat levels in the a.m. but if he is not vomting or having diarrhea he should be able to replete with just his diet (6) Vomiting: Status: Acute Assessment and plan: resolved. check gastric NM emptying study to rule out DM gastroparesis. adv. diet (7) Dehydration: Status: Resolved Assessment and plan: no longer having any vomting. He is now hungry and he is tolerating clear liquids. I will advance his diet and stop the iv fluids. If he tolerates his diet then he can go home tomorrow after his gastric emptying study. (8) Frequent PVCs: Status: Acute Assessment and plan: no further arrhythmias. Patient has not been keeping the tele wires on therefore I have dc'ed his telemetry orders. (9) Elevated LFTs: Status: Chronic Assessment and plan: patient has known hx of HCV which is untreated but he says that [facility] to treat him Subjective Subjective Interval history since last seen: Nausea is better, no vomting; having bowel movements and voiding ok. I told him that [facility] could not get the gastric emptying study done today but will get done tomorrow morning. I spoke w/ the [facility] tech and initially they were not going to do this until Saturday because they try to avoid other NM studies on cardiac scanning days, however, I explained to the tech that this is important to get an answer to this patient's problem. The tech said that they would order the nuclear material today and scan the patient first thing in the morning after the patient has eaten eggs. Exam Narrative Exam Narrative: Abdomen: soft, nontender, no guarding Objective Last Vital Signs Temp 36.9 C 08/14/21 08:35 Pulse 73 08/14/21 08:35 Resp 18 08/14/21 08:35 BP 170/90 H 08/14/21 08:35 Pulse Ox 100 08/14/21 08:35 Laboratory Results - last 24 hr 08/14/21 08/14/21 06:33 06:33 Sodium 131 L Potassium 4.1 D Chloride 98 Carbon Dioxide 22.2 Anion Gap 10.8 BUN 3 L Creatinine 0.7 Estimated GFR/1.73 m2 >= 60.00 Glucose 242 H Calcium 8.1 L Magnesium 1.4 L Ferritin 172 Total Bilirubin 3.0 H Conjugated Bilirubin 1.6 H AST 125 H ALT 124 H Alkaline Phosphatase 134 H Total Protein 6.8 Albumin 3.1 L
--- NOTE | 2021-08-14 10:51 | W.INDIABCONS ---
Date of service: 08/14/21 Time of Service: 10:51 Diabetes Inpatient Consult Reason for Visit: DM DESCRIPTION/ASSESSMENT: 31 year old male admitted with n/v with Diabetic gastroparesis associated with type 1 diabetes mellitus with hx of polysubstance abuse. Blood sugars well controlled. Met with Niraj, he uses a Josseline 2 continuous glucose monitor and reports excellent glycemic control on [facility] regime [facility]. Following diabetic diet with excellent intake. BMI wnl and stable. Has good working knowledge on life style management of Dm1. No further education needed at this time. INTERVENTION: none needed at this time PLAN: will continue to follow and support. Time Spent in Nutritional Counseling and Treatment: 10
[2021-08-14] MEDS: MAGNESIUM SULFATE 2 GM/50 ML BAG IVPB (12:24)
[2021-08-14] MEDS: Potassium Chloride Liquid 20 MEQ PKT 10 MEQ PO (12:51)
[2021-08-14] MEDS: Insulin Glargine 300 UNITS/3 ML PEN 16 UNITS SC (12:52)
[2021-08-14 15:40] VITALS: BP 148/94; PULSE 85; RESP 17; TEMP 36.7; O2SAT 99
[2021-08-14] MEDS: Magnesium Oxide 400 MG TAB 800 MG PO (20:34)
[2021-08-14] MEDS: Pantoprazole 40 MG VIAL IVP (20:34)
[2021-08-14 23:19] VITALS: BP 136/82; PULSE 89; RESP 16; TEMP 36.6; O2SAT 99
[2021-08-15] MEDS: Normal Saline Flush 10 ML SYR IVP ×3 (04:46→13:46)
[2021-08-15] MEDS: LORazepam 2 MG/ML VIAL IVP ×2 (04:46→13:47)
[2021-08-15 06:53] LABS: Anion Gap 11.1 mmol/L (3-11); BUN 6 mg/dL (7-18); CO2 24.9 mmol/L (21.0-32.0); CREATININE 0.8 mg/dL (0.70-1.30); Calcium 8.5 mg/dL (8.5-10.1); Chloride 98 mmol/L (98-107); Glucose 79 mg/dL (74-106); Magnesium 1.9 mg/dL (1.8-2.4); Potassium 4.1 mmol/L (3.5-5.1); Sodium 134 mmol/L (136-145)
[2021-08-15 07:43] VITALS: BP 130/90; PULSE 112; RESP 16; TEMP 36.7; O2SAT 99
--- NOTE | 2021-08-15 07:45 | DI.NM_ITS ---
Exam(s) NM GASTRIC EMPTYING CLINICAL HISTORY: recurrent protracted vomiting in setting of IDDM. COMPARISON: No exams were available for comparison EXAMINATION: PO Dose: 1.0 mCi Sulfur colloid in eggs my 2 pieces of bread, 8 ounces of water adminis tered. Images: Immediately and out to 4 hours FINDINGS: The gastric emptying at 1 hour is calculated to be 15.9%. At 2 hours gastric emptying is 30 percent . At 4 hours 56.5 percent. The T1/2 is 4 hours. IMPRESSION: 1. Abnormally delayed gastric emptying. SNM guidelines: 40% or more gastric emptying at 90 minutes is considered normal. Normal T 1/2 < 50 mi nutes. .
[2021-08-15] MEDS: Buprenorphine/Naloxone 4 mg/1 mg FILM 1 EACH SL (07:58)
[2021-08-15 10:43] VITALS: BP 112/79; PULSE 136; RESP 16; TEMP 36.2; O2SAT 99
[2021-08-15] MEDS: Gabapentin 600 MG TAB PO (13:48)
--- NOTE | 2021-08-15 16:39 | W.PM.DS.N ---
Date of service: 08/15/21 Time of Service: 16:39 DS: Diagnosis Discharge Diagnosis (1) Diabetic gastroparesis associated with type 1 diabetes mellitus: Status: Suspected (2) Hiatal hernia with GERD: Status: Suspected (3) Type I diabetes mellitus: (4) Hypomagnesemia: Status: Acute (5) Hypokalemia: Status: Acute (6) Vomiting: Status: Resolved (7) Dehydration: Status: Resolved (8) Frequent PVCs: Status: Chronic (9) Elevated LFTs: Status: Chronic Discharge Plan Disposition Patient Disposition: HOME Condition: Stable Discharge Details Reason For Visit: Nausea,Vomiting,Hypomagnesemia Admit Date/Time: 08/14/21 18:55 Admit Provider: Frank Reed Attending Provider: Frank Reed Primary Care Provider: Tony Connors [facility] Hospital Course: Ms Barber is a 31 year old male with h/o insulin dependent diabetes mellitus as well as h/o GERD, hiatal hernia, hypomagnesemia, who was a patient on [facility] hospitalist service from 08/12/21 until 08/15/21 for nausea and vomiting. He improved with antiemetic management and IVF. He underwent a gastric emptying study today which was abnormal and c/w gastroparesis. He is being intiated on reglan 5 mg PO AC & HS and has an appointment for follow up with GI at the [facility] tomorrow which he should keep. While here, his electrolytes were repleted and will need to be followed up as outpatient. Finally, the patient is interested in a referral to endocrinology to discuss initiation of an insulin pump. He also shared with me that he is interested in an upgrade to Josseline 2 sensor since it has an alarm feature. We are hopeful that his PCP at the [facility] can initiate these follow ups. Care for patient as well as completion of his discharge summary took 40 minutes on the day of discharge. Home Meds and New Rx's Prescriptions: New magnesium oxide 400 mg (241.3 mg magnesium) Tablet 400 mg PO BID Qty: 10 0RF metoclopramide HCl 10 mg Tablet 5 mg PO AC & HS Qty: 20 0RF Continued Lantus U-100 Insulin 100 unit/mL Solution 24 unit SUBCUT DAILY 0RF insulin aspart U-100 [Novolog U-100 Insulin aspart] 100 unit/mL Solution 1 sliding scale dose SUBCUT USEASDIRECTD 0RF gabapentin 600 mg Tablet 600 mg PO TID 0RF buprenorphine-naloxone 8-2 mg Tablet, Sublingual 1 tab SUBLINGUAL DAILY 0RF cholecalciferol (vitamin D3) [Vitamin D3] 25 mcg (1,000 unit) Tablet 1,000 mcg PO DAILY 0RF omeprazole 20 mg Tablet,Delayed Release (Dr/Ec) 20 mg PO DAILY 0RF potassium chloride 10 mEq tablet,ER particles/crystals 10 meq PO DAILY Qty: 5 0RF Discontinued magnesium 250 mg tablet 250 mg PO DAILY Qty: 7 0RF Discharge Instructions Instructions: Metoclopramide (By mouth), Diabetic Gastroparesis (DC), Low Fiber Diet (DC) Additional Instructions: Follow up with gastroenterology (GI) as scheduled. Follow up with your PCP in 1- 2 weeks. Return to the hospital with any fever, bleeding, chest pain, or shortness of breath. Return to the hospital if you develop intractable nausea/vomiting. Referrals: Tony Connors [Primary Care Provider] - Activity:: Activity as Tolerated Equipment/Supplies:: No Equipment Needed Diet:: carb counting low residue Discharge Orders Discharge Orders: Discharge Order (Routine); Ordered 08/15/21 Ordered By: Frieda Donovan DS: Summary Time Spent with Patient providing and/or coordinating discharge services: Greater than 30 minutes Status at Discharge Functional status at discharge: independent ambulation Overall status at discharge: patient is back to baseline Mental Status: mental status grossly normal Speech and Movement: speech and movement normal Mood: congruent mood Affect: normal affect Exam Narrative Exam Narrative: General: Pleasant male, A&Ox3, NAD HEENT: EOMI, MMM Heart: RRR, no m/r/g Lungs: CTAB Abdomen: soft, nontender, nondistended Extremities: no edema BLEs Psych Mental Status: mental status grossly normal Speech and Movement: speech and movement normal Mood: congruent mood Affect: normal affect DS: Data Vitals/I&O Vitals and I&O: Vital Signs Temperature 36.2 C L 08/15/21 10:43 Temperature Source Tympanic 08/15/21 10:43 Pulse 136 H 08/15/21 10:43 Pulse Rhythm Regular 08/15/21 07:30 Pulse 101 H 08/12/21 18:50 Respiratory Rate 16 08/15/21 10:43 Respiratory Effort 08/15/21 08:33 Respiratory Depth Normal 08/15/21 08:33 Respiratory Pattern Normal 08/15/21 08:33 Blood Pressure 112/79 08/15/21 10:43 Blood Pressure Mean 120 08/12/21 18:45 Blood Pressure Position Supine 08/12/21 14:47 Pulse Oximetry 99 08/15/21 10:43 Oxygen Delivery Method Room Air 08/15/21 10:43 Oxygen Flow Rate 0 08/15/21 10:43 Pain Level 0 08/15/21 10:43 Intake & Output 08/14/21 08/15/21 08/15/21 23:59 11:59 23:59 Other: Urine Appearance Clear Clear Comment up independently to toilet Voiding Methods Toilet Data Completed and Pending Completed studies during hospitalization [Text1]: CXR abdomen flat/upright/chest: No acute pulmonary findings. No specific radiographic findings in the abdomen. US abdomen: 1.? No evidence of cholelithiasis nor dilatation of the biliary tree.? 2.? No other significant ultrasound findings in the upper abdomen. 3.? Please note that recent CT scan 06/29/2021 revealed abnormal circumferential thickening of the lower esophagus.? Endoscopy is recommended. Gastric emptying study: The? gastric emptying at 1 hour is calculated to be 15.9%.? At 2 hours gastric emptying is 30 percent.? At 4 hours 56.5 percent. The T1/2 is 4 hours. IMPRESSION: 1. Abnormally delayed gastric emptying. Labs on day of discharge: Labs from last 24 hours 08/15/21 06:10 Sodium 134 L Potassium 4.1 Chloride 98 Carbon Dioxide 24.9 Anion Gap 11.1 H BUN 6 L Creatinine 0.8 Estimated GFR/1.73 m2 >= 60.00 Glucose 79 D Calcium 8.5 Magnesium 1.9 PFSH All Active Problems Arrhythmia (Acute) Elevated LFTs (Chronic) Hypomagnesemia (Acute) Hypokalemia (Acute) Frequent PVCs (Chronic) Medical History DKA (diabetic ketoacidosis) Hepatitis Hepatitis C antibody positive in blood History of drug abuse in remission Narcotic abuse in remission Type I diabetes mellitus Surgical History No significant past surgical history Social History Smoking/Tobacco Use Status: Former Tobacco Use Tobacco: How many years used: 20 Smoking risk assessment performed?: Yes Alcohol Intake: former Substance use type: marijuana Details: former daily marijauna user--08/12/21 Do you feel safe at home: Yes Do you feel safe in your relationship?: Yes
[2021-08-15] MEDS: Metoclopramide 10 MG TAB 5 MG PO (17:27)
[2021-08-15] MEDS: Insulin Aspart 300 UNITS/3 ML PEN SC ×2 (17:29)
== END 2021-08-15 17:41 | disposition home or self-care (01) | DRG 74 ==
LOC: ER 19:13 → MS 19:59
PROVIDERS: Internal Medicine; Admitting Provider Family Medicine; Emergency Provider Emergency Medicine; PCP Internal Medicine; Visit Provider Family Medicine
DX: E10.43 Type 1 diabetes mellitus with diabetic autonomic (poly)neuropathy (principal); E86.0 Dehydration; K31.84 Gastroparesis; E83.42 Hypomagnesemia; R11.10 Vomiting, unspecified; E87.6 Hypokalemia; E10.9 Type 1 diabetes mellitus without complications; Z87.891 Personal history of nicotine dependence; Z79.4 Long term (current) use of insulin; F11.11 Opioid abuse, in remission; Z79.899 Other long term (current) drug therapy; K21.9 Gastro-esophageal reflux disease without esophagitis; K44.9 Diaphragmatic hernia without obstruction or gangrene; I49.3 Ventricular premature depolarization; B19.20 Unspecified viral hepatitis C without hepatic coma
CPT/HCPCS: 36415; 36416; 78265; 80048; 80053; 80076; 80307; 82805; 82962; 83690; 87635; 93005; 96361; 96365; 96366; 96375; 96376; 99285; 74022; 76700; 81003; 81015; 82728; 83735; 85025; 93010; 99220; 99225; 99232; 99239; G0378; J0131; J2060; J2270; J2405; J3475; J3480